=== PATIENT | female | born 1975 | race Caucasian/White ===

== ENCOUNTER → 2016-10-28 | Outpatient (CLI) | payer OTHER ==
[2016-10-28 15:35] LABS: ALT 36 U/L (9-52); AST 83 U/L (14-36); Alkaline Phosphatase 228 U/L (38-126); Anion Gap 8 mmol/L; Blood Urea Nitrogen 6 mg/dL (7-17); Calcium 8.6 mg/dL (8.4-10.2); Carbon Dioxide 26 mmol/L (22-30); Chloride 103 mmol/L (98-107); Glucose 108 mg/dL (74-99); Non-African American GFR(MDRD) >60 (>60 ml/min/1.73 sqM); Potassium 3.9 mmol/L (3.5-5.1); Sodium 137 mmol/L (137-145); Total Bilirubin 1.8 mg/dL (0.2-1.3); Total Protein 7.2 g/dL (6.3-8.2)
[2016-10-28 16:04] LABS: Hepatitis B Surface Ag Index 0.06
[2016-10-28 16:10] LABS: Hepatitis B Core IgM Index 0.01
[2016-10-28 16:21] LABS: Hepatitis C Virus IgG Index 0.02
[2016-10-28 16:27] LABS: Hepatitis C Virus IgG Ab Negative (Negative)
== END ==
LOC: LABWHC1 14:18
PROVIDERS: ATTEND Family Medicine
DX: R74.8 Abnormal levels of other serum enzymes (principal); R10.9 Unspecified abdominal pain
CPT/HCPCS: 36415; 80053; 80074; 82140

== ENCOUNTER → 2017-05-19 | Outpatient (CLI) | payer OTHER ==
--- NOTE | 2017-05-19 09:41 | US ---
EXAMINATION TYPE: US liver DATE OF EXAM: 05/19/2017 COMPARISON: NONE CLINICAL HISTORY: 41-year-old female R94.5 Elevated Liver Function test. Patient reports a history of alcoholic cirrhosis. TECHNIQUE: Multiple sonographic images of the right upper quadrant are obtained. FINDINGS: Liver Length: 15.1 cm Gallbladder Wall: 0.4 cm CBD: 0.3 cm Right Kidney: 11.5 x 3.8 x 4.7 cm Pancreas: not well visualized Liver: There is a focal area of hyperechogenicity seen along the gallbladder fossa measuring 2.6 x 2. 2 cm. No other focal lesion seen. Gallbladder: No abnormal distention. Mild gallbladder wall thickening at 4 mm. Possible trace fluid interposed between the gallbladder and liver. Evidence for sonographic Kruse's sign: Yes CBD: wnl Right Kidney: No hydronephrosis or masses seen IMPRESSION: 1. As the patient reports a history of cirrhosis, recommend liver MRI to assess for a 2.6 cm area of focal fat along the gallbladder fossa versus a mass. 2. Mild gallbladder wall thickening. There may be trace fluid interposed between the gallbladder and liver. Also, sonographic Kruse sign is reported positive. No calculi are seen. If concern for early acute cholecystitis, follow-up HIDA scan.
== END ==
LOC: RADUSWWP 06:57
PROVIDERS: ATTEND Internal Medicine
DX: K82.8 Other specified diseases of gallbladder (principal)
CPT/HCPCS: 76705

== ENCOUNTER 2017-12-24 11:48 | Emergency (ER) | payer OTHER ==
[2017-12-24] MEDS ORDERED: KETOROLAC 60 MG/2 ML VIAL IM STA (12:34)
--- NOTE | 2017-12-24 12:36 | XR ---
EXAMINATION TYPE: XR ankle complete LT , 3 VIEWS DATE OF EXAM ORDERED: 12/24/2017 HISTORY: Pain. COMPARISON: None. FINDINGS: There is moderate soft tissue swelling adjacent to the lateral malleolus. There is an ossi fic fragment adjacent to the cuboid. An avulsion fracture cannot be excluded. No additional fractures are identified. IMPRESSION: I CANNOT EXCLUDE AN AVULSION FRACTURE ARISING FROM THE CUBOID.
--- NOTE | 2017-12-24 13:00 | ED ---
General Adult HPI - General Chief complaint: Extremity Injury, Lower Stated complaint: left ankle injury Time Seen by Provider: 12/24/17 12:11 Source: patient, RN notes reviewed Mode of arrival: wheelchair Limitations: no limitations - History of Present Illness Initial comments: Patient 42-year-old female presenting to the emergency room today with a chief complaint of injury to the left ankle that occurred approximately 2 hours ago. 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 Patient admits to pain locally. Denies any other injury or trauma. Denies any other complaints or symptoms. Patient denies any recent fever, chills, shortness of breath, chest pain, back pain, abdominal pain, nausea or vomiting, headaches or visual changes, or any other complaints. - Related Data Home Medications Medication Instructions Recorded Confirmed Gabapentin [Neurontin] 300 mg PO TID 02/02/14 11/15/14 busPIRone HCL [Buspar] 15 mg PO TID 02/02/14 11/15/14 Ergocalciferol [Vitamin D2] 50,000 unit PO Q7D 11/15/14 11/15/14 PHENobarbital 100 mg PO 11/15/14 11/15/14 Previous Rx's Medication Instructions Recorded Cephalexin [Keflex] 250 mg PO Q6HR 10 Days day 11/15/14 Allergies Allergy/AdvReac Type Severity Reaction Status Date / Time bee venom protein (honey bee) Allergy Swelling Verified 12/24/17 11:56 Review of Systems ROS Statement: Those systems with pertinent positive or pertinent negative responses have been documented in the HPI. ROS Other: All systems not noted in ROS Statement are negative. Past Medical History Past Medical History: Hypertension, Seizure Disorder Additional Past Medical History / Comment(s): seizured related to alcohol withdrawal, mitral valve prolapse History of Any Multi-Drug Resistant Organisms: None Reported Past Surgical History: Hysterectomy, Tubal Ligation Additional Past Surgical History / Comment(s): plate to right lower arm, wisdom teeth Past Psychological History: Bipolar Smoking Status: Current every day smoker Past Alcohol Use History: Occasional Past Drug Use History: Marijuana General Exam - General Exam Comments Initial Comments: General: The patient is awake and alert, in no distress, and does not appear acutely ill. Neck: The neck is supple, there is no tenderness or JVD. Musculoskeletal: Moderate swelling over the lateral left foot and ankle. Tender on palpation over the lateral malleolous and proximal 4/5 metatarsals. Shows good range of motion. Pedal pulse 2+. Neurological: A&O x 3. CN II-XII intact, There are no obvious motor or sensory deficits. Coordination appears grossly intact. Speech is normal. Skin: Skin is warm and dry and no rashes or lesions are noted. Psychiatric: Normal mood and affect. pect of left foot and ankle. Locally tender over the lateral malleolus and proximal Limitations: no limitations Course Vital Signs 12/24/17 11:54 Temperature 98.3 F Pulse Rate 94 Respiratory 16 Rate Blood Pressure 132/84 O2 Sat by Pulse 100 Oximetry Medical Decision Making - Medical Decision Making Patient's x-ray reviewed does show fracture of the lateral malleolus. Patient has been splinted in a short leg posterior OCL splint. Neurovascular rechecked and intact. Patient be given crutches and advised nonweightbearing. Advised follow-up with orthopedics over the next 2-5 days. Advised to return here to the emergency room if any symptoms increase worsen or for any other concerns. Disposition Clinical Impression: Ankle fracture Disposition: HOME SELF-CARE Condition: Good Instructions: Ankle Fracture (ED) Additional Instructions: Please follow-up with orthopedics in the next 2-5 days. Please leave splint in place until follow-up appointment. Please continue to ice elevate the affected area at least 4 times a day for 20 minutes at a time. Please return to emergency room for any other concerns. Is patient prescribed a controlled substance at d/c from ED?: No Referrals: Elvie Rowe MD [Primary Care Provider] - 1-2 days Rasheed Payne MD [STAFF PHYSICIAN] - 1-2 days Time of Disposition: 13:21
--- NOTE | 2017-12-24 13:05 | XR ---
EXAMINATION TYPE: XR foot complete LT , 3 VIEWS DATE OF EXAM ORDERED: 12/24/2017 HISTORY: Pain. COMPARISON: None. FINDINGS: There is a minimally displaced fracture adjacent to the lateral malleolus there is associa amauri soft tissue swelling over the dorsum of the foot. No other definite fracture is seen. The cuboid appears unremarkable. IMPRESSION: MINIMALLY DISPLACED FRACTURE OF THE LATERAL MALLEOLUS MUST HAVE BEEN MISTAKEN FOR THE CUBOID DUE TO P ROJECTIONAL ISSUES.
[2017-12-24 13:30] VITALS: BP 135/78; PULSE 85; RESP 18; TEMP 98.6
== END 2017-12-24 13:30 | disposition home or self-care (01) ==
LOC: EC 11:48
DX: S82.62XA Displaced fracture of lateral malleolus of left fibula, initial encounter for closed fracture (principal); G40.909 Epilepsy, unspecified, not intractable, without status epilepticus; F31.9 Bipolar disorder, unspecified; F17.200 Nicotine dependence, unspecified, uncomplicated; Z79.899 Other long term (current) drug therapy; Z91.030 Bee allergy status; W19.XXXA Unspecified fall, initial encounter; X50.1XXA Overexertion from prolonged static or awkward postures, initial encounter; Y93.89 Activity, other specified; Y92.009 Unspecified place in unspecified non-institutional (private) residence as the place of occurrence of the external cause
CPT/HCPCS: 73610; 73630; 99283; 29515; 96372; J1885

== ENCOUNTER 2018-07-06 18:34 | Emergency (ER) | payer OTHER ==
[2018-07-06] MEDS ORDERED: KETOROLAC 60 MG/2 ML VIAL IM STA (18:40)
[2018-07-06 18:45] VITALS: RESP 18
[2018-07-06] MEDS ORDERED: KETOROLAC 30 MG/ML 1 ML VIAL IVP STA (18:49)
--- NOTE | 2018-07-06 18:51 | ED ---
General Adult HPI - General Stated complaint: Right Shoulder Injury Time Seen by Provider: 07/06/18 18:35 Source: RN notes reviewed - History of Present Illness Initial comments: This is a 42-year-old female who presents to the emergency department she fell on a step and landed on the right side per patient complains of right humerus pain. Patient states is very difficult to move without causing significant tenderness. Patient denies any clavicle pain or actual pain at the shoulder joint. Patient denies double pain form pain or wrist pain. Patient denies hitting her head or neck. Patient denies any headache or neck pain. Patient denies any other injury at this time. - Related Data Home Medications Medication Instructions Recorded Confirmed Gabapentin [Neurontin] 300 mg PO TID 02/02/14 11/15/14 busPIRone HCL [Buspar] 15 mg PO TID 02/02/14 11/15/14 Ergocalciferol [Vitamin D2] 50,000 unit PO Q7D 11/15/14 11/15/14 PHENobarbital 100 mg PO 11/15/14 11/15/14 Previous Rx's Medication Instructions Recorded Cephalexin [Keflex] 250 mg PO Q6HR 10 Days day 11/15/14 Allergies Allergy/AdvReac Type Severity Reaction Status Date / Time bee venom protein (honey bee) Allergy Swelling Verified 07/06/18 18:40 Review of Systems ROS Statement: Those systems with pertinent positive or pertinent negative responses have been documented in the HPI. ROS Other: All systems not noted in ROS Statement are negative. Past Medical History Past Medical History: Hypertension, Seizure Disorder Additional Past Medical History / Comment(s): seizured related to alcohol withdrawal, mitral valve prolapse History of Any Multi-Drug Resistant Organisms: None Reported Past Surgical History: Hysterectomy, Tubal Ligation Additional Past Surgical History / Comment(s): plate to right lower arm, wisdom teeth Past Psychological History: Bipolar Smoking Status: Current every day smoker Past Alcohol Use History: Occasional Past Drug Use History: Marijuana General Exam - General Exam Comments Initial Comments: GENERAL: Patient is well-developed and well-nourished. Patient is nontoxic and well- hydrated and is in moderate distress. ENT: Neck has full range of motion without eliciting any pain. EYES: The sclera were anicteric and conjunctiva were pink and moist. Extraocular movements were intact and pupils were equal round and reactive to light. Eyelids were unremarkable. SKIN: Skin is clear with no lesions or rashes and otherwise unremarkable. NEUROLOGIC: Patient is alert and oriented x3. Cranial nerves II through XII are grossly intact. Sensation is intact. Normal speech, volume and content. Symmetrical smile. MUSCULOSKELETAL: Patient has mid right humeral pain. Patient has good radial pulses Refill and normal sensation. LYMPHATICS: No significant lymphadenopathy is noted PSYCHIATRIC: Normal psychiatric evaluation. Course Vital Signs 07/06/18 18:40 Temperature 97.6 F Pulse Rate 70 Respiratory 18 Rate Blood Pressure 117/60 O2 Sat by Pulse 99 Oximetry Medical Decision Making - Medical Decision Making EKG shows sinus tachycardia at 125 bpm AK interval is 146 QRS is 84 QT interval 310 QTC is 447. Patient's EKG shows no ST segment elevation or depression or T wave abnormalities are noted. X-ray of the humerus shows a spiral fracture of the proximal humerus. It is displaced. I spoke with the physician family service assistant for Dr. Desai and he stated that this was something that they could not repair here so he wanted me to send her to a trauma center. I spoke with Dr. Frank murdock at [facility] he accepted the patient he stated he would call the emergency department. Disposition Clinical Impression: Comminuted fracture of right humerus Disposition: OTHER INSTITUTION NOT DEFINED Referrals: Elvie Rowe MD [Primary Care Provider] - 1-2 days Time of Disposition: 19:22 - Out of Hospital Transfer - Req. Specs Out of Hospital Transfer - Requested Specifics: Other Emergency Center ( [facility])
--- NOTE | 2018-07-06 19:07 | XR ---
EXAMINATION TYPE: XR humerus RT DATE OF EXAM: 07/06/2018 COMPARISON: NONE HISTORY: Pain after falling TECHNIQUE: 2 view FINDINGS: There is a comminuted spiral fracture of the proximal shaft of the humerus. There is no dis location. Elbow joint is intact. IMPRESSION: Comminuted spiral fracture of the proximal humerus with some impaction and displacement u p to 1 cm.
[2018-07-06] MEDS ORDERED: HYDROmorphone 1 MG/ML 1 ML SYRINGE IVP STA ×2 (19:10→19:48)
[2018-07-06] MEDS ORDERED: ONDANSETRON 4 MG/2 ML VIAL IVP STA ×2 (19:10→19:48)
[2018-07-06 19:45] VITALS: BP 91/56; PULSE 68; TEMP 97.8
[2018-07-06] MEDS ORDERED: hydrALAZINE HCL 20 MG/ML 1 ML VIAL IVP STA (19:47)
== END 2018-07-06 20:05 | disposition other institution (70) ==
LOC: EC 18:34
DX: S42.291A Other displaced fracture of upper end of right humerus, initial encounter for closed fracture (principal); R00.0 Tachycardia, unspecified; G40.909 Epilepsy, unspecified, not intractable, without status epilepticus; F31.9 Bipolar disorder, unspecified; F17.200 Nicotine dependence, unspecified, uncomplicated; Z79.899 Other long term (current) drug therapy; Z91.030 Bee allergy status; W01.0XXA Fall on same level from slipping, tripping and stumbling without subsequent striking against object, initial encounter; Z53.8 Procedure and treatment not carried out for other reasons
CPT/HCPCS: 73060; 96374; 96375 ×2; 99285; J2405; J1885; J1170

== ENCOUNTER 2018-07-26 16:05 | Emergency (ER) | payer OTHER ==
--- NOTE | 2018-07-26 16:46 | ED ---
General Adult HPI - General Chief complaint: Extremity Injury, Upper Stated complaint: Post op complication Time Seen by Provider: 07/26/18 16:26 Source: patient, RN notes reviewed Mode of arrival: ambulatory Limitations: no limitations - History of Present Illness Initial comments: Patient is a 42-year-old female with history of DVT after her hysterectomy who presents the emergency department with complaint of right arm pain that has gotten worse since yesterday. She reports having surgery on that arm 3 weeks ago and having hardware placed. She reports she had a follow-up x-ray which showed a screw coming out. She also reports that the initial swelling from the surgery had gone down, but that it has increased now. She states that she is selling her house and that she has not been resting her right arm like she is supposed to. She reports calling her orthopedic surgeon and being told to go to the ER. Patient denies any recent fever, chills, shortness of breath, chest pain, back pain, abdominal pain, nausea or vomiting, headaches or visual changes , or any other complaints. - Related Data Home Medications Medication Instructions Recorded Confirmed Gabapentin [Neurontin] 300 mg PO TID 02/02/14 11/15/14 busPIRone HCL [Buspar] 15 mg PO TID 02/02/14 11/15/14 Ergocalciferol [Vitamin D2] 50,000 unit PO Q7D 11/15/14 11/15/14 PHENobarbital 100 mg PO 11/15/14 11/15/14 Previous Rx's Medication Instructions Recorded Cephalexin [Keflex] 250 mg PO Q6HR 10 Days day 11/15/14 Allergies Allergy/AdvReac Type Severity Reaction Status Date / Time bee venom protein (honey bee) Allergy Swelling Verified 07/26/18 16:19 Review of Systems ROS Statement: Those systems with pertinent positive or pertinent negative responses have been documented in the HPI. ROS Other: All systems not noted in ROS Statement are negative. Past Medical History Past Medical History: Hypertension, Seizure Disorder Additional Past Medical History / Comment(s): seizured related to alcohol withdrawal, mitral valve prolapse History of Any Multi-Drug Resistant Organisms: None Reported Past Surgical History: Hysterectomy, Tubal Ligation Additional Past Surgical History / Comment(s): plate to right lower arm, wisdom teeth Past Psychological History: No Psychological Hx Reported, Bipolar Smoking Status: Current every day smoker Past Alcohol Use History: Occasional Past Drug Use History: None Reported General Exam Limitations: no limitations General appearance: alert, in no apparent distress Head exam: Present: atraumatic, normocephalic Eye exam: Present: normal appearance Respiratory exam: Present: normal lung sounds bilaterally. Absent: wheezes, rales, rhonchi Cardiovascular Exam: Present: regular rate, normal rhythm Extremities exam: Present: normal capillary refill, other (Radial pulses palpable and strong. No signs of infection over the surgical site.) Neurological exam: Present: alert, oriented X3 Skin exam: Present: warm, dry Course Vital Signs 07/26/18 07/26/18 07/26/18 16:19 18:52 20:21 Temperature 97.9 F 98.0 F Pulse Rate 92 90 86 Respiratory 18 16 18 Rate Blood Pressure 120/77 118/75 144/71 O2 Sat by Pulse 99 100 100 Oximetry Medical Decision Making - Medical Decision Making Morphine 2 mg IM ordered here. Patient came to the ER on 07/06/2018; x-ray reviewed. X-ray of the right humerus reveals fragments in good position but the plate may have some movement. Right arm ultrasound venous doppler duplex is negative for DVT. Patient complains of pain again; given a second dose of morphine. Patient will be picked up from the hospital. Patient has been instructed not to drive today. Case discussed in detail with attending physician Dr. Houston. Disposition Clinical Impression: Arm pain Disposition: HOME SELF-CARE Condition: Good Instructions (If sedation given, give patient instructions): Arm Pain (ED) Additional Instructions: Follow-up with your PCP in 1 to 2 days. Please follow-up with your orthopedic surgeon in 1-2 days. Return to the emergency department if your symptoms worsen or other concerns. Is patient prescribed a controlled substance at d/c from ED?: No Referrals: Elvie Rowe MD [Primary Care Provider] - 1-2 days
[2018-07-26] MEDS ORDERED: MORPHINE SULFATE 4 MG/ML SYRINGE IM STA ×2 (16:48→19:47)
--- NOTE | 2018-07-26 17:14 | XR ---
EXAMINATION TYPE: XR humerus RT DATE OF EXAM: 07/26/2018 COMPARISON: 07/06/2018 HISTORY: Postop. Surgery 3 weeks ago. TECHNIQUE: 2 views FINDINGS: There is a plate with multiple screws fixing the spiral fracture of the proximal humerus. F ragments are in anatomic position. I do not have a initial postoperative exam to compare. Some of the screws are not engaged with the plate and pulled through the holes. There is also screw that is back ed out 4 mm. IMPRESSION: Fragments are in good position but the plate may have some movement.
--- NOTE | 2018-07-26 19:05 | US ---
EXAMINATION TYPE: US venous doppler duplex UE RT DATE OF EXAM: 07/26/2018 COMPARISON: NONE CLINICAL HISTORY: Pain. Edema. SIDE PERFORMED: Right Right Arm: Negative for DVT No evidence of DVT right arm. IMPRESSION: Normal right arm duplex venous sonogram.
[2018-07-26 20:22] VITALS: BP 144/71; PULSE 86; RESP 18; TEMP 98
== END 2018-07-26 20:22 | disposition home or self-care (01) ==
LOC: EC 16:05
DX: M79.601 Pain in right arm (principal); M79.89 Other specified soft tissue disorders; G89.29 Other chronic pain; I10 Essential (primary) hypertension; G40.909 Epilepsy, unspecified, not intractable, without status epilepticus; F31.9 Bipolar disorder, unspecified; F17.200 Nicotine dependence, unspecified, uncomplicated; Z79.899 Other long term (current) drug therapy; Z91.030 Bee allergy status
CPT/HCPCS: 73060; 93971; 99284; 96372 ×2; J2270

== ENCOUNTER 2019-03-09 16:14 | Observation (INO) | payer OTHER ==
[2019-03-09] MEDS ORDERED: ONDANSETRON 4 MG/2 ML VIAL IVP STA (17:01)
[2019-03-09] MEDS ORDERED: MORPHINE SULFATE 4 MG/ML SYRINGE IVP STA (17:01)
--- NOTE | 2019-03-09 17:09 | ED ---
Abdominal Pain HPI - General Chief Complaint: Abdominal Pain Stated Complaint: Cirrhosis of the liver Time Seen by Provider: 03/09/19 16:41 Source: patient Mode of arrival: ambulatory Limitations: no limitations - History of Present Illness Initial Comments: Patient is a 43-year-old female presenting to emergency Department with complaints of right upper quadrant pain has been increasing over the past 2 weeks. Patient states she has a history of alcoholic cirrhosis. Patient states she has not followed up with her PCP in many years. Patient states she is in process of finding a new PCP. Patient states she does not drink as much as she used to but still admits to 2 large bottles of beer a day. Patient states she has not drank alcohol in approximately 5 days. Patient admits to nausea and diarrhea. Patient states her increasing abdominal swelling is interfering with her ADLs. Denies fever, chills, vomiting, chest pain, shortness of breath. Patient has no other complaints at this time. Upon arrival to ER, vital signs are stable. - Related Data Home Medications Medication Instructions Recorded Confirmed Furosemide [Lasix] 20 mg PO DAILY 03/09/19 03/09/19 Magnesium 200 mg PO DAILY 03/09/19 03/09/19 Metoprolol Tartrate [Lopressor] 25 mg PO DAILY 03/09/19 03/09/19 Allergies Allergy/AdvReac Type Severity Reaction Status Date / Time bee venom protein (honey bee) Allergy Swelling Verified 03/09/19 17:49 Review of Systems ROS Statement: Those systems with pertinent positive or pertinent negative responses have been documented in the HPI. ROS Other: All systems not noted in ROS Statement are negative. Past Medical History Past Medical History: Hypertension, Seizure Disorder Additional Past Medical History / Comment(s): seizured related to alcohol withdrawal, mitral valve prolapse, cirrhosis of the liver History of Any Multi-Drug Resistant Organisms: None Reported Past Surgical History: Hysterectomy, Tubal Ligation Additional Past Surgical History / Comment(s): plate to right lower arm, wisdom teeth Past Psychological History: Bipolar Smoking Status: Current every day smoker Past Alcohol Use History: Occasional Past Drug Use History: None Reported General Exam - General Exam Comments Initial Comments: GENERAL: Well-appearing, well-nourished and in no acute distress. HEAD: Atraumatic, normocephalic. EYES: Pupils equal round and reactive to light, extraocular movements intact, sclera anicteric, conjunctiva are normal. ENT: TMs normal, nares patent, oropharynx clear without exudates. Moist mucous membranes. NECK: Normal range of motion, supple without lymphadenopathy or JVD. LUNGS: Breath sounds clear to auscultation bilaterally and equal. No wheezes rales or rhonchi. HEART: Regular rate and rhythm without murmurs, rubs or gallops. ABDOMEN: Tender to palpation in the right upper quadrant. Positive Kruse sign. Abdominal distention present. Soft, normoactive bowel sounds. No guarding, no rebound. No masses appreciated. : Deferred EXTREMITIES: Normal range of motion, no pitting or edema. No clubbing or cyanosis. NEUROLOGICAL: Cranial nerves II through XII grossly intact. Normal speech, normal gait. PSYCH: Normal mood, normal affect. SKIN: Warm, Dry, normal turgor, no rashes or lesions noted. Limitations: no limitations Course Vital Signs 03/09/19 03/09/19 16:31 19:48 Temperature 98.3 F Pulse Rate 83 68 Respiratory 18 18 Rate Blood Pressure 110/67 107/41 O2 Sat by Pulse 100 99 Oximetry Medical Decision Making - Medical Decision Making Patient is a 43-year-old female presenting with increasing abdominal distention and right upper quadrant pain secondary to alcoholic cirrhosis. Patient states her symptoms have been increasing over the past 2 weeks. Patient has not seen her PCP and years for this. Patient does admit to still drinking although not as much. Patient also admits to some intermittent nausea, diarrhea. On exam patient has abdominal distention as well as right upper quadrant tenderness. CBC shows low platelet count of 55. Coags are slightly elevated. Bilirubin is 9.1. AST is 83, alk phos is 255. UA shows urine bilirubin at 3+. Liver ultrasound reveals a somewhat hypererechoic consistent with fatty infiltration. Mild ascites. No dilated ducts. No gallstones. There is a stable 2.5 cm hyperactive area adjacent to the gallbladder compared to old exam. Could be a hemangioma. She was given pain medications and fluids. Patient will be admitted for further evaluation. Patient is a in agreement with this plan of care. Case discussed with Dr. Redmond. - Lab Data Result diagrams: 03/09/19 17:47 03/09/19 17:47 Lab Results 03/09/19 03/09/19 03/09/19 Range/Units 17:47 17:47 17:47 WBC 4.7 (3.8-10.6) k/uL RBC 3.15 L (3.80-5.40) m/uL Hgb 11.1 L (11.4-16.0) gm/dL Hct 34.3 (34.0-46.0) % MCV 109.0 H (80.0-100.0) fL MCH 35.2 H (25.0-35.0) pg MCHC 32.3 (31.0-37.0) g/dL RDW 19.6 H (11.5-15.5) % Plt Count 55 L (150-450) k/uL Neutrophils % 55 % Lymphocytes % 24 % Monocytes % 15 % Eosinophils % 2 % Basophils % 1 % Neutrophils # 2.6 (1.3-7.7) k/uL Lymphocytes # 1.1 (1.0-4.8) k/uL Monocytes # 0.7 (0-1.0) k/uL Eosinophils # 0.1 (0-0.7) k/uL Basophils # 0.1 (0-0.2) k/uL Manual Slide Review Performed Poikilocytosis (manual Present Anisocytosis Slight Macrocytosis Marked A Target Cells Present PT 17.6 H (9.0-12.0) sec INR 1.8 H (<1.2) APTT 30.3 H (22.0-30.0) sec Sodium 137 (137-145) mmol/L Potassium 4.0 (3.5-5.1) mmol/L Chloride 107 (98-107) mmol/L Carbon Dioxide 22 (22-30) mmol/L Anion Gap 8 mmol/L BUN 12 (7-17) mg/dL Creatinine 0.48 L (0.52-1.04) mg/dL Est GFR (CKD-EPI)AfAm >90 (>60 ml/min/1.73 sqM) Est GFR (CKD-EPI)NonAf >90 (>60 ml/min/1.73 sqM) Glucose 110 H (74-99) mg/dL Calcium 7.7 L (8.4-10.2) mg/dL Total Bilirubin 9.1 H (0.2-1.3) mg/dL AST 83 H (14-36) U/L ALT 13 (9-52) U/L Alkaline Phosphatase 255 H (38-126) U/L Total Protein 7.2 (6.3-8.2) g/dL Albumin 2.8 L (3.5-5.0) g/dL Amylase 50 (30-110) U/L Lipase 264 (23-300) U/L Urine Color Urine Appearance (Clear) Urine pH (5.0-8.0) Ur Specific [place] (1.001-1.035) Urine Protein (Negative) Urine Glucose (UA) (Negative) Urine Ketones (Negative) Urine Blood (Negative) Urine Nitrite (Negative) Urine Bilirubin (Negative) Urine Urobilinogen (<2.0) mg/dL Ur Leukocyte Esterase (Negative) Urine RBC (0-5) /hpf Urine WBC (0-5) /hpf Ur Squamous Epith Cells (0-4) /hpf Urine Mucus (None) /hpf Serum Alcohol <10 mg/dL 03/09/19 Range/Units 17:48 WBC (3.8-10.6) k/uL RBC (3.80-5.40) m/uL Hgb (11.4-16.0) gm/dL Hct (34.0-46.0) % MCV (80.0-100.0) fL MCH (25.0-35.0) pg MCHC (31.0-37.0) g/dL RDW (11.5-15.5) % Plt Count (150-450) k/uL Neutrophils % % Lymphocytes % % Monocytes % % Eosinophils % % Basophils % % Neutrophils # (1.3-7.7) k/uL Lymphocytes # (1.0-4.8) k/uL Monocytes # (0-1.0) k/uL Eosinophils # (0-0.7) k/uL Basophils # (0-0.2) k/uL Manual Slide Review Poikilocytosis (manual Anisocytosis Macrocytosis Target Cells PT (9.0-12.0) sec INR (<1.2) APTT (22.0-30.0) sec Sodium (137-145) mmol/L Potassium (3.5-5.1) mmol/L Chloride (98-107) mmol/L Carbon Dioxide (22-30) mmol/L Anion Gap mmol/L BUN (7-17) mg/dL Creatinine (0.52-1.04) mg/dL Est GFR (CKD-EPI)AfAm (>60 ml/min/1.73 sqM) Est GFR (CKD-EPI)NonAf (>60 ml/min/1.73 sqM) Glucose (74-99) mg/dL Calcium (8.4-10.2) mg/dL Total Bilirubin (0.2-1.3) mg/dL AST (14-36) U/L ALT (9-52) U/L Alkaline Phosphatase (38-126) U/L Total Protein (6.3-8.2) g/dL Albumin (3.5-5.0) g/dL Amylase (30-110) U/L Lipase (23-300) U/L Urine Color Dark Brown Urine Appearance Cloudy H (Clear) Urine pH 6.0 (5.0-8.0) Ur Specific [place] 1.050 H (1.001-1.035) Urine Protein 1+ H (Negative) Urine Glucose (UA) Negative (Negative) Urine Ketones Negative (Negative) Urine Blood Negative (Negative) Urine Nitrite Negative (Negative) Urine Bilirubin 3+ H (Negative) Urine Urobilinogen 4.0 (<2.0) mg/dL Ur Leukocyte Esterase Negative (Negative) Urine RBC 1 (0-5) /hpf Urine WBC 2 (0-5) /hpf Ur Squamous Epith Cells 18 H (0-4) /hpf Urine Mucus Many H (None) /hpf Serum Alcohol mg/dL Disposition Clinical Impression: Abdominal pain, Ascites due to alcoholic cirrhosis Disposition: ADMITTED IP TO THIS HOSP Condition: Stable Is patient prescribed a controlled substance at d/c from ED?: No Referrals: None,Stated [Primary Care Provider] - 1-2 days Decision Date: 03/09/19 Decision Time: 20:22
[2019-03-09 17:57] LABS: Appearance,Urine Cloudy (Clear); Bilirubin,Urine 3+ (Negative); Blood,Urine Negative (Negative); Color,Urine Dark Brown; Glucose,Urine (UA) Negative (Negative); Ketones,Urine Negative (Negative); Leukocyte Esterase,Urine Negative (Negative); Mucus,Urine Many /hpf; Nitrite,Urine Negative (Negative); Protein,Urine 1+ (Negative); RBC,Urine 1 /hpf (0-5); Squamous Epithelial Cell,Urine 18 /hpf (0-4)
[2019-03-09 18:04] LABS: ALT 13 U/L (9-52); AST 83 U/L (14-36); African American GFR (CKD) >90 (>60 ml/min/1.73 sqM); Albumin 2.8 g/dL (3.5-5.0); Alcohol <10 mg/dL; Alkaline Phosphatase 255 U/L (38-126); Amylase 50 U/L (30-110); Anion Gap 8 mmol/L; Blood Urea Nitrogen 12 mg/dL (7-17); Calcium 7.7 mg/dL (8.4-10.2); Carbon Dioxide 22 mmol/L (22-30); Chloride 107 mmol/L (98-107); Glucose 110 mg/dL (74-99); INR 1.8 (<1.2); Partial Thromboplastin Time 30.3 sec (22.0-30.0); Prothrombin Time 17.6 sec (9.0-12.0); Sodium 137 mmol/L (137-145); Total Bilirubin 9.1 mg/dL (0.2-1.3); Total Protein 7.2 g/dL (6.3-8.2)
--- NOTE | 2019-03-09 18:23 | US ---
EXAMINATION TYPE: US liver DATE OF EXAM: 03/09/2019 COMPARISON: US 2017 liver ultrasound 05/19/2017 CLINICAL HISTORY: pain, hx of cirrhosis. Abdomen pain, N/V, bloating, jaundice, patient not NPO EXAM MEASUREMENTS: Liver Length: 17.1 cm Gallbladder Wall: 0.3 cm CBD: 0.4 cm Right Kidney: 10.5 x 5.2 x 5.1 cm Difficult and limited study due to patient body habitus Pancreas: obscured by overlying midline bowel gas Liver: measures in upper limits, increased echogenicity, heterogeneous with hyperechoic area seen ad jacent to gallbladder measuring 1.6 x 2.0 x 1.6cm Gallbladder: wall borderline thickened at 0.3cm Evidence for sonographic Kruse's sign: yes CBD: visualized portions wnl, limited by overlying midline bowel gas Right Kidney: wnl free fluid in RUQ IMPRESSION: Liver is somewhat hyperechoic consistent with fatty infiltration. Mild ascites. No dilate d ducts. No discrete liver mass. Right kidney shows no hydronephrosis. No gallstones. There is a stable 2.5 cm hyperechoic area adjacent to the gallbladder compared to old exam and could be a hemangioma.
[2019-03-09 18:35] LABS: Anisocytosis Slight; Basophils # (A) 0.1 k/uL (0-0.2); Basophils % (A) 1 %; Eosinophils # (A) 0.1 k/uL (0-0.7); Eosinophils % (A) 2 %; HCT 34.3 % (34.0-46.0); HGB 11.1 gm/dL (11.4-16.0); Lymphocytes # (A) 1.1 k/uL (1.0-4.8); Lymphocytes % (A) 24 %; MCH 35.2 pg (25.0-35.0); MCHC 32.3 g/dL (31.0-37.0); Macrocytosis Marked; Mean Platelet Volume 8.6; Monocytes # (A) 0.7 k/uL (0-1.0); Monocytes % (A) 15 %; Neutrophils # (A) 2.6 k/uL (1.3-7.7); Neutrophils % (A) 55 %; RBC 3.15 m/uL (3.80-5.40); RDW 19.6 % (11.5-15.5); WBC 4.7 k/uL (3.8-10.6)
[2019-03-09 18:48] LABS: Platelet Count 55 k/uL (150-450); Poikilocytosis (M) Present; Target Cells Present
[2019-03-09] MEDS ORDERED: MORPHINE SULFATE 2 MG/ML SYRINGE IVP ONE (19:26)
[2019-03-09] MEDS ORDERED: SODIUM CHLORIDE 0.9% 1,000 ML IV ONE (20:09)
[2019-03-09 20:40] LABS: Magnesium 2.1 mg/dL (1.6-2.3); Phosphorus 4.1 mg/dL (2.5-4.5)
[2019-03-09] MEDS: HYDROmorphone 0.5 MG/0.5 ML SYRINGE IVP PRN (22:53)
[2019-03-10] MEDS: HYDROmorphone 0.5 MG/0.5 ML SYRINGE IVP PRN ×6 (03:55→23:39)
[2019-03-10 04:18] VITALS: BMI 27.6
[2019-03-10] MEDS: MAGNESIUM OXIDE 400 MG TAB PO SCH (08:04)
[2019-03-10] MEDS: FUROSEMIDE 20 MG TAB PO SCH (08:04)
[2019-03-10] MEDS: METOPROLOL TARTRATE 25 MG TAB PO SCH (08:05)
--- NOTE | 2019-03-10 19:16 | P.HPIM ---
History of Present Illness H&P Date: 03/10/19 Chief Complaint: Abdominal pain Ms. Yip is a 43-year-old female with a past medical history of hypertension, mitral valve prolapse, alcohol liver cirrhosis coming into the hospital with a chief complaint of increasing abdominal girth and abdominal pain. Patient reports of alcohol abuse, she has been drinking vodka for many years and was diagnosed with alcohol liver cirrhosis. Eventually she admits to drinking beer on a daily basis. She states that her abdominal swelling is increasing and she is not able to perform her activities of daily living. Patient denies having any fevers chills or rigors. No abdominal pain nausea vomiting, diarrhea or constipation. She denies having any blood in the stool. No hematemesis. Patient has bilateral lower extremity swelling that has been stable. Patient denies having any chest pain. But she reports mild difficulty in breathing has her abdomen is full. No cough. No sick contacts. In the ER patient had an abdominal ultrasound showing hyperechoic fatty infiltration of the liver. Her labs were showing hemoglobin at 11 with macrocytosis. But his elevation of PT/INR. Mild elevation in her AST, ALT and ALP. She has been admitted for paracentesis. Review of Systems REVIEW OF SYSTEMS: PSYCH: No history of anxiety or depression NEURO:No c/o weakness of the extremties, No facial droop, No speech abnormalities. VASCULAR: Peripheral nervous system within the normal limits no edema HEMATOLOGIC: No history of easy bleeding and bruising . No recent infections . RESPIRATORY: No cough, No SOB, No chest discomfort. IMMUNE: No infections INTEGUMENT: no rashes OPHTHALMOLOGIC: No blurry vision and no eye discharge : No dysuria or hematuria FOOD AND DRUG RESEARCH SCIENTIST: No bleeding PV CARDIAC: No chest pain , shortness of breath , paroxysmal nocturnal dyspnea MUSCULOSKELETAL : No Aches or pains in the joints or muscles. GI: As per HPI All 13 review of systems are negative except for the ones mentioned above Past Medical History Past Medical History: Eye Disorder, Hypertension, Seizure Disorder Additional Past Medical History / Comment(s): seizured related to alcohol withdrawal, mitral valve prolapse, cirrhosis of the liver, retinal damage r/t head trauma History of Any Multi-Drug Resistant Organisms: None Reported Past Surgical History: Hysterectomy, Tubal Ligation Additional Past Surgical History / Comment(s): plate to right lower arm, wisdom teeth, samantha in right upper arm Past Anesthesia/Blood Transfusion Reactions: No Reported Reaction Past Psychological History: Bipolar Smoking Status: Current every day smoker Past Alcohol Use History: Occasional Past Drug Use History: None Reported - Past Family History Mother Family Medical History: Unable to Obtain Father Family Medical History: Unable to Obtain Medications and Allergies Home Medications Medication Instructions Recorded Confirmed Type Furosemide [Lasix] 20 mg PO DAILY 03/09/19 03/09/19 History Magnesium 200 mg PO DAILY 03/09/19 03/09/19 History Metoprolol Tartrate [Lopressor] 25 mg PO DAILY 03/09/19 03/09/19 History Allergies Allergy/AdvReac Type Severity Reaction Status Date / Time bee venom protein (honey bee) Allergy Swelling Verified 03/09/19 17:49 Physical Exam Vitals: Vital Signs Temp Pulse Pulse Resp BP BP Pulse Ox 03/10/19 16:00 75 03/10/19 15:00 97.8 F 75 16 133/70 99 03/10/19 07:00 98.2 F 80 18 127/78 100 03/10/19 02:40 98.2 F 83 16 133/75 97 03/10/19 00:49 98.3 F 78 14 123/73 99 03/09/19 19:48 68 18 107/41 99 Intake and Output 03/10/19 03/10/19 03/10/19 06:59 14:59 22:59 Intake Total 1060 Balance 1060 Intake: Intake, IV Titration 160 Amount Sodium Chloride 0.9% 1, 160 000 ml @ 20 mls/hr IV . Q24H ONE Rx#:[id number] Oral 900 Other: # Voids 1 1 Weight 68.492 kg GEN. APPEARANCE: alert, in no apparent distress HEAD EXAM: atraumatic, normocephalic, normal inspection EYE EXAM: Mild pallor. Positive for icterus. ENT EXAM: normal exam, mucous membranes moist NECK EXAM: normal inspection. Absent: tenderness, meningismus, full ROM, lymphadenopathy RESPIRATORY EXAM: Bilateral breath sounds are positive. No wheezes or crackles. CARDIOVASCULAR EXAM: regular rate, normal rhythm, normal heart sounds. Absent: systolic murmur, diastolic murmur, rubs, gallop, clicks GI/ABDOMINAL EXAM: Abdomen is distended. Nontender. Fluid thrill positive. EXTREMITIES EXAM: Bilateral pitting pedal edema. NEUROLOGICAL EXAM: alert, oriented X3, no focal neurological deficits PSYCHIATRIC EXAM: normal affect, normal mood SKIN EXAM: warm, dry, intact, normal color. Absent: rash Results CBC & Chem 7: 03/09/19 17:47 03/09/19 17:47 Labs: Abnormal Lab Results - Last 24 Hours (Table) 03/09/19 Range/Units 17:47 RBC 3.15 L (3.80-5.40) m/uL Hgb 11.1 L (11.4-16.0) gm/dL MCV 109.0 H (80.0-100.0) fL MCH 35.2 H (25.0-35.0) pg RDW 19.6 H (11.5-15.5) % Plt Count 55 L (150-450) k/uL Macrocytosis Marked A Thrombosis Risk Factor Assmnt - Choose All That Apply Each Factor Represents 1 point: Age 41-60 years, Obesity (BMI >25) Other Risk Factors: No Other congenital or acquired thrombophilia - If yes, enter type in comment: No Thrombosis Risk Factor Assessment Total Risk Factor Score: 2 Thrombosis Risk Factor Assessment Level: Low Risk Assessment and Plan Assessment: ASSESSMENT Ascites secondary to liver cirrhosis Alcohol liver cirrhosis Transaminitis Elevated PT/INR History of mitral valve prolapse Hypertension History of seizure disorder PLAN: Patient has history of recurrent ascites. She is admitted for parace ntesis. Interventional radiology and GI have been consulted. Continue with Lasix for symptomatic relief. Continue with the rest of her medication regimen. SCDs for DVT prophylaxis in view of her chronic liver disease and elevated INR. Further recommendations to follow depending on the progress of the patient.
--- NOTE | 2019-03-10 21:18 | P.CONS ---
History of Present Illness - Reason for Consult Consult date: 03/10/19 cirrhosis Requesting physician: Irina Ren - Chief Complaint Abdominal distension - History of Present Illness 43-year-old female with a known medical history significant for hypertension, mitral valve prolapse and alcoholic cirrhosis who presented to the hospital with complaints of increasing abdominal distention. She reports abdominal distention which had been worsening over the past few weeks prior to presentation. She reports associated rectal upper quadrant pain secondary to the distention as well as nausea. Currently she is on home dose of furosemide 20 mg daily. She does report previously requiring 1 paracentesis approximately 4 years ago at which time 2 L was removed. She denies any signs or symptoms of GI bleeding but does report 20 years ago having an EGD at which time she was told she had ulcers. She denies any treatment for encephalopathy but does report difficulty sleeping as well as difficulty with her memory. Previously the patient reports a long-standing history of alcohol use with daily liquor but currently is drinking 2 large bottles of beer daily. She also reports loose stool prior to presentation which is currently improved with no blood or black tarry stools. Laboratory evaluation on presentation was significant for a WBC 4.7, hemoglobin 11.1, platelet count 55,000, MCV 109, total bilirubin 9.1, alkaline phosphatase 255, AST 83 and ALT 13. Ultrasound significant for hyperechoic liver with no dilated ducts noted. Review of Systems REVIEW OF SYSTEMS: CONSTITUTIONAL: Denies any fevers, chills, weight change or fatigue. CARDIOVASCULAR: Denies any chest pain, palpitations high or low blood pressures RESPIRATORY: Denies any shortness of breath, hemoptysis or cough. GENITOURINARY: No dysuria or hematuria. MUSCULOSKELETAL: No weakness reported. SKIN: Denies any new rashes or lesions, jaundice or pallor. PSYCHIATRIC: Denies any depression or anxiety. NEUROLOGY: Denies headache, denies any new focal deficits. EARS/NOSE/THROAT: No recent hearing change, congestion, nasal discharge or sore throat. EYES: No pain in eyes, discharge or change in vision. GASTROINTESTINAL: As per HPI. Past Medical History Past Medical History: Eye Disorder, Hypertension, Seizure Disorder Additional Past Medical History / Comment(s): seizured related to alcohol withdrawal, mitral valve prolapse, cirrhosis of the liver, retinal damage r/t head trauma History of Any Multi-Drug Resistant Organisms: None Reported Past Surgical History: Hysterectomy, Tubal Ligation Additional Past Surgical History / Comment(s): plate to right lower arm, wisdom teeth, samantha in right upper arm Past Anesthesia/Blood Transfusion Reactions: No Reported Reaction Past Psychological History: Bipolar Smoking Status: Current every day smoker Past Alcohol Use History: Occasional Past Drug Use History: None Reported - Past Family History Mother Family Medical History: Unable to Obtain Father Family Medical History: Unable to Obtain Medications and Allergies Home Medications Medication Instructions Recorded Confirmed Type Furosemide [Lasix] 20 mg PO DAILY 03/09/19 03/09/19 History Magnesium 200 mg PO DAILY 03/09/19 03/09/19 History Metoprolol Tartrate [Lopressor] 25 mg PO DAILY 03/09/19 03/09/19 History Allergies Allergy/AdvReac Type Severity Reaction Status Date / Time bee venom protein (honey bee) Allergy Swelling Verified 03/09/19 17:49 Physical Exam Vitals: Vital Signs Temp Pulse Resp BP Pulse Ox 03/10/19 16:00 75 03/10/19 15:00 97.8 F 75 16 133/70 99 03/10/19 07:00 98.2 F 80 18 127/78 100 03/10/19 02:40 98.2 F 83 16 133/75 97 03/10/19 00:49 98.3 F 78 14 123/73 99 Intake and Output 03/10/19 03/10/19 03/10/19 06:59 14:59 22:59 Intake Total 1060 236 Balance 1060 236 Intake: Intake, IV Titration 160 Amount Sodium Chloride 0.9% 1, 160 000 ml @ 20 mls/hr IV . Q24H ONE Rx#:[id number] Oral 900 236 Other: # Voids 1 1 Weight 68.492 kg On physical examination, patient appears comfortable in no apparent distress. HEAD: Normocephalic, atraumatic. EYES: No scleral icterus. No conjunctival injection. MOUTH: No lesions, tongue midline. NECK: Trachea midline, no gross abnormalities. CHEST: Clear to auscultation with no wheezing or rhonchi appreciated. HEART: Regular rate and rhythm. ABDOMEN: Soft, obese and distended with positive fluid wave. Bowel sounds are positive. No organomegaly. No guarding or rigidity. EXTREMITIES: No pedal edema. SKIN: No rashes, no jaundice. NEUROLOGIC: Alert and oriented x3, no asterixis. No focal deficits. Results CBC & Chem 7: 03/09/19 17:47 03/09/19 17:47 US - abdomen: report reviewed (Ultrasound significant for hyperechoic liver with no dilated ducts noted.) Assessment and Plan (1) Ascites due to alcoholic cirrhosis Narrative/Plan: 43-year-old female with a known history of decompensated alcoholic cirrhosis presenting with increasing ascites and abdominal distention. Currently only on home dose of Lasix 20 mg daily, she reports requiring paracentesis one time in the past. Current Visit: Yes Status: Acute Code(s): K70.31 - ALCOHOLIC CIRRHOSIS OF LIVER WITH ASCITES SNOMED Code(s): 8843103371183965 (2) Abdominal pain Current Visit: Yes Status: Acute Code(s): R10.9 - UNSPECIFIED ABDOMINAL PAIN SNOMED Code(s): 18163194 Plan: Supportive care Okay for sodium restricted diet Continue Lasix 20 mg daily Aldactone 50 mg daily added Ultrasound-guided paracentesis Alcohol abstinence Ammonia level pending Thank you for allowing us to participate in the care of the patient we will continue to follow
[2019-03-11] MEDS: HYDROmorphone 0.5 MG/0.5 ML SYRINGE IVP PRN ×5 (03:35→20:26)
[2019-03-11 06:55] LABS: Anisocytosis Slight; Basophils % (A) 1 %; Eosinophils # (A) 0.1 k/uL (0-0.7); Eosinophils % (A) 2 %; HGB 10.6 gm/dL (11.4-16.0); Lymphocytes # (A) 1.2 k/uL (1.0-4.8); Lymphocytes % (A) 27 %; MCH 35.1 pg (25.0-35.0); MCHC 32.1 g/dL (31.0-37.0); MCV 109.4 fL (80.0-100.0); Macrocytosis Marked; Mean Platelet Volume 8.6; Monocytes # (A) 0.7 k/uL (0-1.0); Monocytes % (A) 15 %; Neutrophils # (A) 2.3 k/uL (1.3-7.7); Neutrophils % (A) 51 %; RBC 3.02 m/uL (3.80-5.40); RDW 19.2 % (11.5-15.5); WBC 4.4 k/uL (3.8-10.6)
[2019-03-11 07:09] LABS: Platelet Count 50 k/uL (150-450)
[2019-03-11 07:17] LABS: ALT 25 U/L (9-52); AST 91 U/L (14-36); African American GFR (CKD) >90 (>60 ml/min/1.73 sqM); Albumin 2.7 g/dL (3.5-5.0); Alkaline Phosphatase 231 U/L (38-126); Anion Gap 4 mmol/L; Blood Urea Nitrogen 10 mg/dL (7-17); Carbon Dioxide 21 mmol/L (22-30); Chloride 105 mmol/L (98-107); Glucose 84 mg/dL (74-99); Potassium 4.1 mmol/L (3.5-5.1); Sodium 130 mmol/L (137-145); Total Bilirubin 9.4 mg/dL (0.2-1.3); Total Protein 7.1 g/dL (6.3-8.2)
[2019-03-11] MEDS: METOPROLOL TARTRATE 25 MG TAB PO SCH (08:02)
[2019-03-11] MEDS: MAGNESIUM OXIDE 400 MG TAB PO SCH (08:03)
[2019-03-11] MEDS: SPIRONOLACTONE 25 MG TAB PO SCH (08:03)
[2019-03-11] MEDS: FUROSEMIDE 20 MG TAB PO SCH (08:03)
[2019-03-11 10:33] LABS: INR 1.7 (<1.2); Prothrombin Time 17.3 sec (9.0-12.0)
--- NOTE | 2019-03-11 19:25 | P.PN ---
Subjective Progress Note Date: 03/11/19 Principal diagnosis: As site is secondary to alcohol liver disease Ms. Yip is a 43-year-old female with a past medical history of hypertension, mitral valve prolapse, alcohol liver cirrhosis coming into the hospital with a chief complaint of increasing abdominal girth and abdominal pain. Patient reports of alcohol abuse, she has been drinking vodka for many years and was diagnosed with alcohol liver cirrhosis. Eventually she admits to drinking beer on a daily basis. She states that her abdominal swelling is increasing and she is not able to perform her activities of daily living. Patient denies having any fevers chills or rigors. No abdominal pain nausea vo miting, diarrhea or constipation. She denies having any blood in the stool. No hematemesis. Patient has bilateral lower extremity swelling that has been stable. Patient denies having any chest pain. But she reports mild difficulty in breathing has her abdomen is full. No cough. No sick contacts. In the ER patient had an abdominal ultrasound showing hyperechoic fatty infiltration of the liver. Her labs were showing hemoglobin at 11 with macrocytosis. But his elevation of PT/INR. Mild elevation in her AST, ALT and ALP. She has been admitted for paracentesis On 03/11/2019- patient is lying comfortably in the bed appears to be no acute distress. She states that her abdomen is increasing in girth. She denies having any abdominal pain nausea vomiting or diarrhea. No dysuria or hematuria. No chest pain. Difficulty in breathing at baseline. Patient states that she has been prescribed antibiotic eye ointment for her left eye stye. She showed me her antibiotic eye ointment it is erythromycin ophthalmic cream. Discussed with the nursing staff that she can use her antibiotic cream for the stye. Active Medications Erythromycin (Romycin Ophth Oint) 1 applic LEFT EYE Q8HR FREDIS Furosemide (Lasix) 20 mg PO DAILY FREDIS Last Admin: 03/11/19 08:03 Dose: 20 mg Documented by: Hydromorphone HCl (Dilaudid) 0.5 mg IVP Q4HR PRN PRN Reason: Pain Last Admin: 03/11/19 16:07 Dose: 0.5 mg Documented by: Lactulose (Cephulac) 20 gm PO BID FREDIS Magnesium Oxide (Mag-Ox) 200 mg PO DAILY FREDIS Last Admin: 03/11/19 08:03 Dose: 200 mg Documented by: Metoprolol Tartrate (Lopressor) 25 mg PO DAILY [facility] Last Admin: 03/11/19 08:02 Dose: 25 mg Documented by: Spironolactone (Aldactone) 50 mg PO DAILY [facility] Last Admin: 03/11/19 08:03 Dose: 50 mg Documented by: Objective - Vital Signs Vital signs: Vital Signs Temp 98.5 F 03/11/19 14:33 Pulse 69 03/11/19 14:33 Resp 16 03/11/19 14:33 BP 132/84 03/11/19 14:33 Pulse Ox 100 03/11/19 14:33 Intake & Output 03/11/19 03/11/19 03/12/19 06:59 18:59 06:59 Intake Total 236 236 296 Balance 236 236 296 Intake: Oral 236 236 296 Other: Voiding Method Toilet # Voids 2 2 - Exam GEN. APPEARANCE: alert, in no apparent distress HEAD EXAM: atraumatic, normocephalic, normal inspection EYE EXAM: Mild pallor. Positive for icterus. ENT EXAM: normal exam, mucous membranes moist NECK EXAM: No thyromegaly. No lymphadenopathy. RESPIRATORY EXAM: Bilateral breath sounds are positive. No wheezes or crackles. CARDIOVASCULAR EXAM: S1 and S2 heard. GI/ABDOMINAL EXAM: Abdomen is distended. Nontender. Fluid thrill positive. EXTREMITIES EXAM: Bilateral pitting pedal edema. NEUROLOGICAL EXAM: alert, oriented X3, no focal neurological deficits PSYCHIATRIC EXAM: normal affect, normal mood - Labs CBC & Chem 7: 03/11/19 06:09 03/11/19 06:09 Labs: Abnormal Lab Results - Last 24 Hours (Table) 03/11/19 03/11/19 03/11/19 Range/Units 06:09 06:09 06:09 RBC 3.02 L (3.80-5.40) m/uL Hgb 10.6 L (11.4-16.0) gm/dL Hct 33.0 L (34.0-46.0) % MCV 109.4 H (80.0-100.0) fL MCH 35.1 H (25.0-35.0) pg RDW 19.2 H (11.5-15.5) % Plt Count 50 L (150-450) k/uL Macrocytosis Marked A PT (9.0-12.0) sec INR (<1.2) Sodium 130 L (137-145) mmol/L Carbon Dioxide 21 L (22-30) mmol/L Creatinine 0.46 L (0.52-1.04) mg/dL Calcium 8.0 L (8.4-10.2) mg/dL Total Bilirubin 9.4 H (0.2-1.3) mg/dL AST 91 H (14-36) U/L Alkaline Phosphatase 231 H (38-126) U/L Ammonia 38 H (<30) umol/L Albumin 2.7 L (3.5-5.0) g/dL 03/11/19 Range/Units 06:09 RBC (3.80-5.40) m/uL Hgb (11.4-16.0) gm/dL Hct (34.0-46.0) % MCV (80.0-100.0) fL MCH (25.0-35.0) pg RDW (11.5-15.5) % Plt Count (150-450) k/uL Macrocytosis PT 17.3 H (9.0-12.0) sec INR 1.7 H (<1.2) Sodium (137-145) mmol/L Carbon Dioxide (22-30) mmol/L Creatinine (0.52-1.04) mg/dL Calcium (8.4-10.2) mg/dL Total Bilirubin (0.2-1.3) mg/dL AST (14-36) U/L Alkaline Phosphatase (38-126) U/L Ammonia (<30) umol/L Albumin (3.5-5.0) g/dL Assessment and Plan Assessment: ASSESSMENT Ascites secondary to liver cirrhosis Alcohol liver cirrhosis Transaminitis Elevated PT/INR Left eye stye History of mitral valve prolapse Hypertension History of seizure disorder PLAN: Patient has history of recurrent ascites. She is admitted for paracentesis. Interventional radiology and GI have been consulted. She was seen by GI yesterday and has been started on spironolactone and lactulose. Yoselin nue with the rest of her medication regimen. SCDs for DVT prophylaxis in view of her chronic liver disease and elevated INR. Discussed with the patient that she continues erythromycin ophthalmic that she has from home. Further recommendations to follow depending on the progress of the patient.
--- NOTE | 2019-03-11 20:19 | P.PN ---
Subjective Progress Note Date: 03/11/19 Principal diagnosis: Decompensated liver cirrhosis with ascites Patient seen lying in bed, no abdominal pain but still reports distention. Tolerating her diet. Objective - Vital Signs Vital signs: Vital Signs Temp 98.5 F 03/11/19 14:33 Pulse 69 03/11/19 14:33 Resp 16 03/11/19 14:33 BP 132/84 03/11/19 14:33 Pulse Ox 100 03/11/19 14:33 Intake & Output 03/11/19 03/11/19 03/12/19 06:59 18:59 06:59 Intake Total 236 236 296 Balance 236 236 296 Intake: Oral 236 236 296 Other: Voiding Method Toilet # Voids 2 2 - Exam On physical examination, patient appears comfortable in no apparent distress. HEAD: Normocephalic, atraumatic. EYES: No scleral icterus. No conjunctival injection. MOUTH: No lesions, tongue midline. NECK: Trachea midline, no gross abnormalities. CHEST: Clear to auscultation with no wheezing or rhonchi appreciated. HEART: Regular rate and rhythm. ABDOMEN: Soft, distended with positive fluid wave. Bowel sounds are positive. No organomegaly. No guarding or rigidity. EXTREMITIES: No pedal edema. SKIN: No rashes, no jaundice. NEUROLOGIC: Alert and oriented x3, with no asterixis noted. No focal deficits. - Labs CBC & Chem 7: 03/11/19 06:09 03/11/19 06:09 Labs: Abnormal Lab Results - Last 24 Hours (Table) 03/11/19 03/11/19 03/11/19 Range/Units 06:09 06:09 06:09 RBC 3.02 L (3.80-5.40) m/uL Hgb 10.6 L (11.4-16.0) gm/dL Hct 33.0 L (34.0-46.0) % MCV 109.4 H (80.0-100.0) fL MCH 35.1 H (25.0-35.0) pg RDW 19.2 H (11.5-15.5) % Plt Count 50 L (150-450) k/uL Macrocytosis Marked A PT (9.0-12.0) sec INR (<1.2) Sodium 130 L (137-145) mmol/L Carbon Dioxide 21 L (22-30) mmol/L Creatinine 0.46 L (0.52-1.04) mg/dL Calcium 8.0 L (8.4-10.2) mg/dL Total Bilirubin 9.4 H (0.2-1.3) mg/dL AST 91 H (14-36) U/L Alkaline Phosphatase 231 H (38-126) U/L Ammonia 38 H (<30) umol/L Albumin 2.7 L (3.5-5.0) g/dL 03/11/19 Range/Units 06:09 RBC (3.80-5.40) m/uL Hgb (11.4-16.0) gm/dL Hct (34.0-46.0) % MCV (80.0-100.0) fL MCH (25.0-35.0) pg RDW (11.5-15.5) % Plt Count (150-450) k/uL Macrocytosis PT 17.3 H (9.0-12.0) sec INR 1.7 H (<1.2) Sodium (137-145) mmol/L Carbon Dioxide (22-30) mmol/L Creatinine (0.52-1.04) mg/dL Calcium (8.4-10.2) mg/dL Total Bilirubin (0.2-1.3) mg/dL AST (14-36) U/L Alkaline Phosphatase (38-126) U/L Ammonia (<30) umol/L Albumin (3.5-5.0) g/dL Assessment and Plan (1) Ascites due to alcoholic cirrhosis Narrative/Plan: 43-year-old female with a known history of decompensated alcoholic cirrhosis presenting with increasing ascites and abdominal distention. Currently only on home dose of Lasix 20 mg daily, she reports requiring paracentesis one time in the past. Current Visit: Yes Status: Acute Code(s): K70.31 - ALCOHOLIC CIRRHOSIS OF LIVER WITH ASCITES SNOMED Code(s): 9956910204206584 (2) Abdominal pain Current Visit: Yes Status: Acute Code(s): R10.9 - UNSPECIFIED ABDOMINAL PAIN SNOMED Code(s): 11031749 Plan: Supportive care Okay for sodium restricted diet Continue Lasix 20 mg daily Aldactone 50 mg daily Ultrasound-guided paracentesis Alcohol abstinence Ammonia level elevated, lactulose added today to be titrated to 2-3 bowel movem ents daily Thank you for allowing us to participate in the care of the patient we will continue to follow
[2019-03-11] MEDS: LACTULOSE 20 GM/30 ML CUP PO SCH (20:27)
[2019-03-11] MEDS: ERYTHROMYCIN 5 MG/GM OPHTH OINT 3.5 GM TUBE LEFT EYE SCH (23:00)
[2019-03-12] MEDS: HYDROmorphone 0.5 MG/0.5 ML SYRINGE IVP PRN ×3 (01:21→09:23)
[2019-03-12 07:01] VITALS: BP 121/75; PULSE 72; RESP 16; TEMP 98.4
[2019-03-12] MEDS: SPIRONOLACTONE 25 MG TAB PO SCH (08:31)
[2019-03-12] MEDS: MAGNESIUM OXIDE 400 MG TAB PO SCH (08:32)
[2019-03-12] MEDS: METOPROLOL TARTRATE 25 MG TAB PO SCH (08:32)
[2019-03-12] MEDS: FUROSEMIDE 20 MG TAB PO SCH (08:32)
[2019-03-12] MEDS: LACTULOSE 20 GM/30 ML CUP PO SCH (08:33)
[2019-03-12] MEDS: ERYTHROMYCIN 5 MG/GM OPHTH OINT 3.5 GM TUBE LEFT EYE SCH (08:33)
[2019-03-12 08:35] LABS: African American GFR (CKD) >90 (>60 ml/min/1.73 sqM); Anion Gap 6 mmol/L; Blood Urea Nitrogen 8 mg/dL (7-17); Calcium 7.9 mg/dL (8.4-10.2); Carbon Dioxide 22 mmol/L (22-30); Chloride 107 mmol/L (98-107); Glucose 90 mg/dL (74-99); Potassium 4.1 mmol/L (3.5-5.1); Sodium 135 mmol/L (137-145)
--- NOTE | 2019-03-12 09:04 | US ---
EXAMINATION TYPE: US abdomen limited DATE OF EXAM: 03/12/2019 COMPARISON: 03/09/2019 CLINICAL HISTORY: assess for fluid pocket please. Ascites check Small amount of ascites seen within all 4 quadrants and midline pelvis. Ascites may be minimally increased from 03/09/2019. IMPRESSION: 1. Ascites is present to a small degree within all 4 quadrants visualized.
[2019-03-12 09:25] LABS: Anisocytosis Slight; Basophils % (A) 1 %; Eosinophils # (A) 0.1 k/uL (0-0.7); Eosinophils % (A) 2 %; HCT 32.5 % (34.0-46.0); HGB 10.6 gm/dL (11.4-16.0); Lymphocytes # (A) 1.4 k/uL (1.0-4.8); Lymphocytes % (A) 29 %; MCH 35.7 pg (25.0-35.0); MCHC 32.7 g/dL (31.0-37.0); Macrocytosis Marked; Mean Platelet Volume 8.7; Monocytes # (A) 0.6 k/uL (0-1.0); Monocytes % (A) 13 %; Neutrophils # (A) 2.4 k/uL (1.3-7.7); Neutrophils % (A) 51 %; RBC 2.98 m/uL (3.80-5.40); WBC 4.7 k/uL (3.8-10.6)
[2019-03-12 09:31] LABS: Platelet Count 57 k/uL (150-450)
[2019-03-12 11:29] LABS: Poikilocytosis (M) Present; Toxic Granulation Present
--- NOTE | 2019-03-12 14:35 | P.DS ---
Providers Date of admission: 03/09/19 20:09 Expected date of discharge: 03/12/19 Attending physician: Naresh Cole Consults: 03/09/19 20:08 Consult Physician Routine Consulting Provider: Nick Quijano Consult Reason/Comments: cirrhosis Do you want consulting provider notified?: Yes Primary care physician: Stated None Hospital Course: Ms. Yip is a 43-year-old female with a past medical history of hypertension, mitral valve prolapse, alcohol liver cirrhosis coming into the hospital with a chief complaint of increasing abdominal girth and abdominal pain. Patient reports of alcohol abuse, she has been drinking vodka for many years and was diagnosed with alcohol liver cirrhosis. Eventually she admits to drinking beer on a daily basis. She states that her abdominal swelling is increasing and she is not able to perform her activities of daily living. Patient denies having any fevers chills or rigors. No abdominal pain nausea vomiting, diarrhea or constipation. She denies having any blood in the stool. No hematemesis. Patient has bilateral lower extremity swelling that has been stable. Patient denies having any chest pain. But she reports mild difficulty in breathing has her abdomen is full. No cough. No sick contacts. In the ER patient had an abdominal ultrasound showing hyperechoic fatty infiltration of the liver. Her labs were showing hemoglobin at 11 with macrocytosis. But his elevation of PT/INR. Mild elevation in her AST, ALT and ALP. She has been admitted for paracentesis. Hospital course: Patient had stayed in the hospital over the weekend. On Tuesday morning she had an ultrasound of the abdomen done, but the patient had only minimal amount of acetic fluid. She was informed that it cannot be tapped. Patient was very upset and left the hospital AGAINST MEDICAL ADVICE. DISCHARGE DIAGNOSIS Ascites secondary to liver cirrhosis Alcohol liver cirrhosis Transaminitis Elevated PT/INR History of mitral valve prolapse Hypertension History of seizure disorder PLAN: When I went into the room to talk to her about the treatment plan, the patient was very upset. She was already dressed up and pulled her IV and walked away AGAINST MEDICAL ADVICE Patient Condition at Discharge: Critical Plan - Discharge Summary New Discharge Prescriptions: No Action Metoprolol Tartrate [Lopressor] 25 mg PO DAILY Furosemide [Lasix] 20 mg PO DAILY Magnesium 200 mg PO DAILY Discharge Medication List Furosemide [Lasix] 20 mg PO DAILY 03/09/19 [History] Magnesium 200 mg PO DAILY 03/09/19 [History] Metoprolol Tartrate [Lopressor] 25 mg PO DAILY 03/09/19 [History] Follow up Appointment(s)/Referral(s): None,Stated [Primary Care Provider] - 1-2 days Discharge Disposition: Left Against Medical Advice
== END 2019-03-12 11:37 | disposition left against medical advice (07) ==
LOC: EC 16:14 → 4SSUR 20:09
PROVIDERS: ADMIT Hospitalist; ATTEND Hospitalist
DX: K70.31 Alcoholic cirrhosis of liver with ascites (principal); I10 Essential (primary) hypertension; G40.909 Epilepsy, unspecified, not intractable, without status epilepticus; I34.1 Nonrheumatic mitral (valve) prolapse; F31.9 Bipolar disorder, unspecified; F17.200 Nicotine dependence, unspecified, uncomplicated; D75.89 Other specified diseases of blood and blood-forming organs; E66.9 Obesity, unspecified; Z68.27 Body mass index [BMI] 27.0-27.9, adult; R79.1 Abnormal coagulation profile; R41.3 Other amnesia; G47.9 Sleep disorder, unspecified; H57.9 Unspecified disorder of eye and adnexa; H35.9 Unspecified retinal disorder; K76.0 Fatty (change of) liver, not elsewhere classified; H00.016 Hordeolum externum left eye, unspecified eyelid; Z79.899 Other long term (current) drug therapy; Z91.030 Bee allergy status; Z90.710 Acquired absence of both cervix and uterus; Z87.828 Personal history of other (healed) physical injury and trauma; Z53.21 Procedure and treatment not carried out due to patient leaving prior to being seen by health care provider
CPT/HCPCS: 96376 ×4; 96375 ×2; 96374; 99285; 36415; 80053 ×2; 80048; 82140 ×2; 82150; 83690; 83735; 84100; 85025 ×3; 85610 ×2; 85730; 81001; 76705 ×2; G0378 ×4; G0480; J2270 ×2; J2405; J1170 ×4; 80320

== ENCOUNTER → 2019-03-09 | Outpatient (CLI) | payer OTHER ==
--- NOTE | 2019-03-11 19:10 | MR ---
EXAMINATION TYPE: MR brain wo/w con DATE OF EXAM: 03/09/2019 COMPARISON: CT brain 02/26/2018 HISTORY: Closed head injury /Transient visual loss TECHNIQUE: Multiplanar, multisequence images of the brain and brainstem is performed without and with IV contras t, utilizing 6 mL intravenous Gadavist . FINDINGS: Diffusion weighted images demonstrate no evidence of a recent infarct or other diffusion ab normality. There is no extra-axial fluid collection or significant white matter signal abnormality. Single focus of juxtacortical hyperintensity and inversion recovery T2-weighted sequences axial imag e 20 in the right parietal lobe measures 3 mm in size, similar focus in the left frontal lobe on axia l image 15. The ventricular system and cisternal spaces are normal in size and appearance. The brain volume is age appropriate. Midline structures demonstrate normal morphology. The craniocervical junction appears within normal limits. Post contrast images demonstrate no abnormal enhancement. The dural venous sinuses appear pa tent. The visualized sinuses are clear and the globes are intact. IMPRESSION: Nonspecific foci of hyperintensity in the white matter of questionable clinical significa nce. No other significant abnormality is evident.
== END | disposition home or self-care (01) ==
LOC: RADMRIMAIN 14:51
PROVIDERS: ATTEND Ophthalmology
DX: S09.90XA Unspecified injury of head, initial encounter (principal); H53.123 Transient visual loss, bilateral
CPT/HCPCS: 70553; A9585

== ENCOUNTER → 2019-04-06 | Outpatient (CLI) | payer OTHER ==
--- NOTE | 2019-04-06 14:28 | US ---
EXAMINATION TYPE: US carotid duplex BILAT DATE OF EXAM: 04/06/2019 COMPARISON: NONE CLINICAL HISTORY: H53.8 BLURRED VISION. EXAM MEASUREMENTS: RIGHT: Peak Systolic Velocity (PSV) cm/sec ----- Right CCA: 109.9 ----- Right ICA: 112.8 ----- Right ECA: 108.4 ICA/CCA ratio: 1.0 RIGHT: End Diastole cm/sec ----- Right CCA: 27.0 ----- Right ICA: 41.6 ----- Right ECA: 21.4 LEFT: Peak Systolic Velocity (PSV) cm/sec ----- Left CCA: 86.5 ----- Left ICA: 91.4 ----- Left ECA: 122.1 ICA/CCA ratio: 1.1 LEFT: End Diastole cm/sec ----- Left CCA: 19.7 ----- Left ICA: 26.7 ----- Left ECA: 26.8 VERTEBRALS (direction of flow): Right Vertebral: Antegrade Left Vertebral: Antegrade Rhythm: Normal, possible tachycardic very small amount of atherosclerotic changes seen. IMPRESSION: 1. Mild degree of grayscale atheromatous plaquing with no sonographically evident hemodynamically sig nificant stenosis within either visualized carotid arterial system.. 2. Cardiac rhythm is regular limits however appears tachycardic. Correlate with EKG. Criteria for Assigning % of Stenosis / Diameter reduction (Estimation based on the indirect measurements of the internal carotid artery velocities (ICA PSV). 1. Normal (no stenosis)=ICA PSV < 125 cm/s: ratio < 2.0: ICA EDV<40 cm/s. 2. Less than 50% stenosis=ICA PSV < 125 cm/s: ratio < 2.0: ICA EDV<40 cm/s. 3. 50 to 69% stenosis=ICA PSV of 125 to 230 cm/s: ration 2.0 ? 4.0: ICA EDV 40-100 cm/s. 4. Greater than 70% stenosis to near occlusion= ICA PSV > 230 cm/s: ratio > 4.0: ICA EDV > 100 cm/s. 5. Near occlusion= ICA PSV velocities may be low or undetectable: variable ratio and ICA EDV. 6. Total occlusion=unable to detect flow.
== END | disposition home or self-care (01) ==
LOC: RADUSWWP 13:43
PROVIDERS: ATTEND Psychiatry & Neurology Neurology
DX: I65.29 Occlusion and stenosis of unspecified carotid artery (principal); R00.0 Tachycardia, unspecified; H53.8 Other visual disturbances
CPT/HCPCS: 93880

== ENCOUNTER 2019-05-29 15:47 | Emergency (ER) | payer OTHER ==
--- NOTE | 2019-05-29 17:46 | XR ---
PROCEDURE: XR humerus RT - 2V DATE AND TIME: 05/29/2019 5:13 PM CLINICAL INDICATION: Pain; hx of fx hardware, pain TECHNIQUE: Imaging obtained from the shoulder to the elbow with AP and internal rotation lateral view s. COMPARISON: 07/26/2018 FINDINGS: The orthopedic hardware is intact without periprosthesis lucencies. There is architectural distortion at the proximal humeral shaft fracture, at the site of the previous ly seen comminuted fracture. This anatomy is obscured on the internal rotation lateral humeral view. As seen, there is no definite new fracture. There is no malalignment. The soft tissues are unremarkable. No incidental findings. IMPRESSION: No definite acute radiographic process.
--- NOTE | 2019-05-29 17:49 | ED ---
General Adult HPI - General Chief complaint: Abdominal Pain Stated complaint: Stomach pain Time Seen by Provider: 05/29/19 16:50 Source: patient, RN notes reviewed, old records reviewed Mode of arrival: ambulatory Limitations: no limitations - History of Present Illness Initial comments: 43-year-old female patient past medical history of alcoholic cirrhosis, ascites presents to ED for chief complaint of bulge in her umbilical area. Patient course of an ongoing for approximately 2 days. Patient also has a secondary complaint of right shoulder pain. Patient reports that she had hardware inserted for humerus fracture approximately 3 years ago. Has been having pain the last 2 weeks. Denies any signs and symptoms of infection denies any other complaints at this time. Systemic: Pt denies fatigue, fever/chills, rash. Pt denies weakness, night sweats, weight loss. Neuro: Pt denies headache, visual disturbances, syncope or pre-syncope. HEENT: Pt denies ocular discharge or irritation, otalgia, rhinorrhea, pharyngitis or notable lymphadenopathy. Cardiopulmonary: Pt denies chest pain, SOB, heart palpitations, dyspnea on exertion. Abdominal/GI: Pt denies abdominal pain, n/v/d. : Pt denies dysuria, burning w/ urination, frequency/urgency. Denies new onset urinary or bowel incontinence. MSK: Pt denies myalgia, loss of strength or function in extremities. Neuro: Pt denies new onset weakness, paresthesias. - Related Data Home Medications Medication Instructions Recorded Confirmed Furosemide [Lasix] 20 mg PO DAILY 03/09/19 05/15/19 Magnesium 200 mg PO DAILY 03/09/19 05/15/19 Metoprolol Tartrate [Lopressor] 25 mg PO DAILY 03/09/19 05/15/19 Folic Acid 1 mg PO DAILY 05/15/19 05/15/19 Pnv,Calcium 72/Iron/Folic Acid 1 each PO DAILY 05/15/19 05/15/19 [ Plus Tablet] Spironolactone [Aldactone] 50 mg PO DAILY 05/15/19 05/15/19 Allergies Allergy/AdvReac Type Severity Reaction Status Date / Time bee venom protein (honey bee) Allergy Swelling Verified 05/29/19 16:21 Review of Systems ROS Statement: Those systems with pertinent positive or pertinent negative responses have been documented in the HPI. ROS Other: All systems not noted in ROS Statement are negative. 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 Date of last positivie culture/infection: 2003 MDRO Source:: LT ELBOW Past Surgical History: Hysterectomy, Orthopedic Surgery, Tubal Ligation Additional Past Surgical History / Comment(s): plate to right lower arm, wisdom teeth, samantha in right upper arm Past Anesthesia/Blood Transfusion Reactions: No Reported Reaction Past Psychological History: Anxiety, Bipolar Smoking Status: Current every day smoker Past Alcohol Use History: None Reported Past Drug Use History: None Reported - Past Family History Mother Family Medical History: Unable to Obtain Father Family Medical History: Unable to Obtain General Exam - General Exam Comments Initial Comments: Constitutional: NAD, AOX3, Pt has pleasant affect. HEENT: NC/AT, trachea midline, neck supple, no lymphadenopathy. Posterior pharynx non erythematous, without exudates. External ears appear normal, without discharge. Mucous membranes moist. Eyes PERRLA, EOM intact. There is no scleral icterus. No pallor noted. Cardiopulmonary: RRR, no murmurs, rubs or gallops, no JVD noted. Lungs CTAB in anterior and posterior donis. No peripheral edema. Abdominal exam: Abdomen soft and non-distended. Abdomen non-tender to palpation in all 4 quadrants. Bowel sounds active in LLQ. No hepatosplenomegaly. No ecchymosis. Small reducible umbilical hernia noted. No skin changes. Neuro: CN II-XII grossly intact. No nuchal rigidity. No raccon eyes, no anderson sign, no hemotympanum. No cervical spinal tenderness. MSK: Right shoulder nontender to palpation, full active range of motion. Skin changes, neurovascularly intact.. No skin No posterior calf tenderness bilaterally, homans sign negative bilaterally. Posterior tibialis and radial pulse +2 bilaterally. Sensation intact in upper and lower extremities. Full active ROM in upper and lower extremities, 5/5 stregnth. Limitations: no limitations Course Vital Signs 05/29/19 05/29/19 16:19 16:45 Temperature 97.7 F 97.6 F Pulse Rate 92 83 Respiratory 18 17 Rate Blood Pressure 127/81 102/66 O2 Sat by Pulse 100 97 Oximetry Medical Decision Making - Medical Decision Making 43-year-old female patient past medical history significant for alcoholic cirrhosis presents to ED for chief complaint of fall from her umbilical area. Patient vital signs are stable, afebrile. Physical exam this displayed a small reducible umbilical hernia. Patient's secondary complaint of some right shoulder pain following humerus fracture and hardware implementation approximately 3 years ago. Full active range of motion. No skin changes. Neurovascularly intact. Sclerae appears intact and plain film. Patient was discharged to follow-up with primary care provider and surgery consult. Will return to ER if condition worsens. Case discussed with Dr. Mccallum. Disposition Clinical Impression: Umbilical hernia Disposition: HOME SELF-CARE Condition: Stable Instructions (If sedation given, give patient instructions): Umbilical Hernia (ED) Additional Instructions: Follow-up with primary care provider and general surgeon tomorrow. Return to ER if condition worsens in any way. Is patient prescribed a controlled substance at d/c from ED?: No Referrals: None,Stated [Primary Care Provider] - 1-2 days Steve Jordan MD [STAFF PHYSICIAN[facility] - [facility]-2 days
[2019-05-29 18:08] VITALS: BP 108/76; PULSE 76; RESP 18; TEMP 99.2
== END 2019-05-29 18:07 | disposition home or self-care (01) ==
LOC: EC 15:47
DX: K42.9 Umbilical hernia without obstruction or gangrene (principal); K70.31 Alcoholic cirrhosis of liver with ascites; M25.511 Pain in right shoulder; I10 Essential (primary) hypertension; I34.1 Nonrheumatic mitral (valve) prolapse; G40.909 Epilepsy, unspecified, not intractable, without status epilepticus; F17.200 Nicotine dependence, unspecified, uncomplicated; Z79.899 Other long term (current) drug therapy; Z91.030 Bee allergy status; Z87.81 Personal history of (healed) traumatic fracture; Z96.698 Presence of other orthopedic joint implants; Z86.14 Personal history of Methicillin resistant Staphylococcus aureus infection
CPT/HCPCS: 99284

== ENCOUNTER 2019-07-10 14:57 | Emergency (ER) | payer OTHER ==
[2019-07-10 15:10] VITALS: RESP 18
[2019-07-10] MEDS ORDERED: SODIUM CHLORIDE 0.9% 500 ML 500 ML IV STA (15:58)
[2019-07-10] MEDS ORDERED: KETOROLAC 30 MG/ML 1 ML VIAL IVP STA (15:59)
[2019-07-10 16:28] LABS: ALT 29 U/L (4-34); AST 54 U/L (14-36); African American GFR (CKD) >90 (>60 ml/min/1.73 sqM); Albumin 3.2 g/dL (3.5-5.0); Alkaline Phosphatase 146 U/L (38-126); Amylase 57 U/L (30-110); Anion Gap 8 mmol/L; Blood Urea Nitrogen 11 mg/dL (7-17); Calcium 8.5 mg/dL (8.4-10.2); Carbon Dioxide 22 mmol/L (22-30); Chloride 107 mmol/L (98-107); Glucose 105 mg/dL (74-99); Non-African American GFR(CKD) >90 (>60 ml/min/1.73 sqM); Potassium 3.8 mmol/L (3.5-5.1); Sodium 137 mmol/L (137-145); Total Bilirubin 2.9 mg/dL (0.2-1.3); Total Protein 7.4 g/dL (6.3-8.2)
--- NOTE | 2019-07-10 16:36 | US ---
EXAMINATION TYPE: US abdomen limited DATE OF EXAM: 07/10/2019 COMPARISON: 03/12/2019 CLINICAL HISTORY: RUQ pain. EXAM MEASUREMENTS: Liver Length: 13.5 cm Gallbladder Wall: 0.3 cm CBD: 0.4 cm Right Kidney: 10.1 X 5.6 X 5.9 cm Technically difficult due to extensive midline bowel gas. Pancreas: visualized portions wnl Liver: wnl Gallbladder: No stones seen Evidence for sonographic Kruse's sign: No CBD: wnl Right Kidney: No hydronephrosis or masses seen Small amount of free fluid around liver. IMPRESSION: 1. Limited exam demonstrates a tiny amount of fluid surrounding the liver. Increased echo pattern can be seen with hepatic steatosis or hepatitis. 2. Bladder wall measures at the upper limits of normal at 3 mm correlate clinically.
[2019-07-10 16:38] LABS: Anisocytosis Slight; HCT 32.9 % (34.0-46.0); HGB 10.5 gm/dL (11.4-16.0); MCHC 31.8 g/dL (31.0-37.0); MCV 97.2 fL (80.0-100.0); Mean Platelet Volume 8.1; RBC 3.39 m/uL (3.80-5.40); RDW 16.1 % (11.5-15.5); WBC 3.2 k/uL (3.8-10.6)
[2019-07-10 16:44] LABS: Appearance,Urine Clear (Clear); Bilirubin,Urine Negative (Negative); Blood,Urine Negative (Negative); Color,Urine Yellow; Glucose,Urine (UA) Negative (Negative); Ketones,Urine Negative (Negative); Leukocyte Esterase,Urine Negative (Negative); Nitrite,Urine Negative (Negative); Protein,Urine Trace (Negative); Specific Gravity,Urine 1.017 (1.001-1.035)
[2019-07-10 16:59] LABS: Band Neutrophils % 5 %; Basophils # (M) 0.03 k/uL (0-0.2); Eosinophils # (M) 0.16 k/uL (0-0.7); Lymphocytes # (M) 1.22 k/uL (1.0-4.8); Monocytes # (M) 0.22 k/uL (0-1.0); Neutrophils % (M) 44 %; Nucleated Red Blood Cells 0 /100 WBC (0-0); Poikilocytosis (M) Present; Total Cells Counted 100
[2019-07-10 17:00] LABS: Platelet Count 66 k/uL (150-450)
--- NOTE | 2019-07-10 17:18 | ED ---
General Adult HPI - General Chief complaint: Abdominal Pain Stated complaint: Abdominal pain Time Seen by Provider: 07/10/19 15:15 Source: EMS, RN notes reviewed Mode of arrival: EMS Limitations: no limitations - History of Present Illness Initial comments: 43-year-old female with a past medical history of alcoholic cirrhosis, ascites, hepatic encephalopathy presents to the emergency department for a chief complaint of right upper quadrant pain. Patient states she always has right upper quadrant pain and sometimes it is worse than others. States that right now her pain is worsened. States she was feeling weak earlier and thought her ammonia could be elevated. States she is taking her lactulose as directed twice daily. Patient states she quit drinking 6 months ago. Denies fevers or chills. States she is scheduled for a scope on Tuesday because of this chronic pain.Patient has no other complaints at this time including shortness of breath, chest pain, nausea or vomiting, headache, or visual changes. - Related Data Home Medications Medication Instructions Recorded Confirmed Furosemide [Lasix] 20 mg PO DAILY 03/09/19 05/15/19 Magnesium 200 mg PO DAILY 03/09/19 05/15/19 Metoprolol Tartrate [Lopressor] 25 mg PO DAILY 03/09/19 05/15/19 Folic Acid 1 mg PO DAILY 05/15/19 05/15/19 Pnv,Calcium 72/Iron/Folic Acid 1 each PO DAILY 05/15/19 05/15/19 [ Plus Tablet] Spironolactone [Aldactone] 50 mg PO DAILY 05/15/19 05/15/19 Allergies Allergy/AdvReac Type Severity Reaction Status Date / Time bee venom protein (honey bee) Allergy Swelling Verified 05/29/19 16:21 Review of Systems ROS Statement: Those systems with pertinent positive or pertinent negative responses have been documented in the HPI. ROS Other: All systems not noted in ROS Statement are negative. Past Medical History Past Medical History: Eye Disorder, Hypertension, Mitral Valve Prolapse (MVP), Seizure Disorder Additional Past Medical History / Comment(s): seizured related to alcohol withdrawal, ACITIES,cirrhosis of the liver, retinal damage r/t head trauma. Hepatic encephelapothy. History of Any Multi-Drug Resistant Organisms: MRSA Date of last positivie culture/infection: 2003 MDRO Source:: LT ELBOW Past Surgical History: Hysterectomy, Orthopedic Surgery, Tubal Ligation Additional Past Surgical History / Comment(s): plate to right lower arm, wisdom teeth, samantha in right upper arm Past Anesthesia/Blood Transfusion Reactions: No Reported Reaction Past Psychological History: Anxiety, Bipolar Smoking Status: Current every day smoker Past Alcohol Use History: None Reported Past Drug Use History: None Reported - Past Family History Mother Family Medical History: Unable to Obtain Father Family Medical History: Unable to Obtain General Exam Limitations: no limitations General appearance: alert, in no apparent distress Head exam: Present: atraumatic, normocephalic, normal inspection Eye exam: Present: normal appearance, PERRL, EOMI. Absent: scleral icterus, conjunctival injection, periorbital swelling ENT exam: Present: normal exam, mucous membranes moist Neck exam: Present: normal inspection, full ROM. Absent: tenderness, m eningismus, lymphadenopathy Respiratory exam: Present: normal lung sounds bilaterally. Absent: respiratory distress, wheezes, rales, rhonchi, stridor Cardiovascular Exam: Present: regular rate, normal rhythm, normal heart sounds. Absent: systolic murmur, diastolic murmur, rubs, gallop, clicks GI/Abdominal exam: Present: soft, tenderness (Mild right upper quadrant tenderness. No epigastric or left upper quadrant tenderness. Abdomen is soft. No rigidity. Lower abdomen is nontender.), normal bowel sounds. Absent: di stended, guarding, rebound, rigid Neurological exam: Present: alert Course Vital Signs 07/10/19 15:04 Temperature 97.9 F Pulse Rate 74 Respiratory 18 Rate Blood Pressure 121/63 O2 Sat by Pulse 100 Oximetry Medical Decision Making - Medical Decision Making Physical examination generally unremarkable. CBC does have mild anemia which is patient's baseline. Darvocet of pain he also patient's baseline. CMP shows an improved bilirubin of 2.9 down from 9.44 months ago. AST and ALP have also improved. Urinalysis unremarkable. Ultrasound was obtained and demonstrated a tiny amount of fluid starting the liver. Bladder wall measures at the upper limits of normal. Given history of chronic pain in an improved bilirubin is likely not acute. Patient was reevaluated noticing much better. Patient will be discharged home to follow up with primary care in stable condition. She'll return if she has any worsening of this. - Lab Data Result diagrams: 07/10/19 15:30 07/10/19 15:30 Lab Results 07/10/19 07/10/19 07/10/19 Range/Units 15:30 15:30 15:30 WBC 3.2 L (3.8-10.6) k/uL RBC 3.39 L (3.80-5.40) m/uL Hgb 10.5 L (11.4-16.0) gm/dL Hct 32.9 L (34.0-46.0) % MCV 97.2 (80.0-100.0) fL MCH 31.0 (25.0-35.0) pg MCHC 31.8 (31.0-37.0) g/dL RDW 16.1 H (11.5-15.5) % Plt Count 66 L (150-450) k/uL Neutrophils % (Manual) 44 % Band Neutrophils % 5 % Lymphocytes % (Manual) 38 % Monocytes % (Manual) 7 % Eosinophils % (Manual) 5 % Basophils % (Manual) 1 % Neutrophils # (Manual) 1.50 (1.3-7.7) k/uL Lymphocytes # (Manual) 1.22 (1.0-4.8) k/uL Monocytes # (Manual) 0.22 (0-1.0) k/uL Eosinophils # (Manual) 0.16 (0-0.7) k/uL Basophils # (Manual) 0.03 (0-0.2) k/uL Nucleated RBCs 0 (0-0) /100 WBC Manual Slide Review Performed Poikilocytosis (manual Present Anisocytosis Slight Sodium 137 (137-145) mmol/L Potassium 3.8 (3.5-5.1) mmol/L Chloride 107 (98-107) mmol/L Carbon Dioxide 22 (22-30) mmol/L Anion Gap 8 mmol/L BUN 11 (7-17) mg/dL Creatinine 0.69 (0.52-1.04) mg/dL Est GFR (CKD-EPI)AfAm >90 (>60 ml/min/1.73 sqM) Est GFR (CKD-EPI)NonAf >90 (>60 ml/min/1.73 sqM) Glucose 105 H (74-99) mg/dL Calcium 8.5 (8.4-10.2) mg/dL Total Bilirubin 2.9 H (0.2-1.3) mg/dL AST 54 H (14-36) U/L ALT 29 (4-34) U/L Alkaline Phosphatase 146 H (38-126) U/L Ammonia 24 (<30) umol/L Total Protein 7.4 (6.3-8.2) g/dL Albumin 3.2 L (3.5-5.0) g/dL Amylase 57 (30-110) U/L Lipase 290 (23-300) U/L Urine Color Urine Appearance (Clear) Urine pH (5.0-8.0) Ur Specific [place] (1.001-1.035) Urine Protein (Negative) Urine Glucose (UA) (Negative) Urine Ketones (Negative) Urine Blood (Negative) Urine Nitrite (Negative) Urine Bilirubin (Negative) Urine Urobilinogen (<2.0) mg/dL Ur Leukocyte Esterase (Negative) 07/10/19 Range/Units 16:30 WBC (3.8-10.6) k/uL RBC (3.80-5.40) m/uL Hgb (11.4-16.0) gm/dL Hct (34.0-46.0) % MCV (80.0-100.0) fL MCH (25.0-35.0) pg MCHC (31.0-37.0) g/dL RDW (11.5-15.5) % Plt Count (150-450) k/uL Neutrophils % (Manual) % Band Neutrophils % % Lymphocytes % (Manual) % Monocytes % (Manual) % Eosinophils % (Manual) % Basophils % (Manual) % Neutrophils # (Manual) (1.3-7.7) k/uL Lymphocytes # (Manual) (1.0-4.8) k/uL Monocytes # (Manual) (0-1.0) k/uL Eosinophils # (Manual) (0-0.7) k/uL Basophils # (Manual) (0-0.2) k/uL Nucleated RBCs (0-0) /100 WBC Manual Slide Review Poikilocytosis (manual Anisocytosis Sodium (137-145) mmol/L Potassium (3.5-5.1) mmol/L Chloride (98-107) mmol/L Carbon Dioxide (22-30) mmol/L Anion Gap mmol/L BUN (7-17) mg/dL Creatinine (0.52-1.04) mg/dL Est GFR (CKD-EPI)AfAm (>60 ml/min/1.73 sqM) Est GFR (CKD-EPI)NonAf (>60 ml/min/1.73 sqM) Glucose (74-99) mg/dL Calcium (8.4-10.2) mg/dL Total Bilirubin (0.2-1.3) mg/dL AST (14-36) U/L ALT (4-34) U/L Alkaline Phosphatase (38-126) U/L Ammonia (<30) umol/L Total Protein (6.3-8.2) g/dL Albumin (3.5-5.0) g/dL Amylase (30-110) U/L Lipase (23-300) U/L Urine Color Yellow Urine Appearance Clear (Clear) Urine pH 6.0 (5.0-8.0) Ur Specific [place] 1.017 (1.001-1.035) Urine Protein Trace H (Negative) Urine Glucose (UA) Negative (Negative) Urine Ketones Negative (Negative) Urine Blood Negative (Negative) Urine Nitrite Negative (Negative) Urine Bilirubin Negative (Negative) Urine Urobilinogen 4.0 (<2.0) mg/dL Ur Leukocyte Esterase Negative (Negative) Disposition Clinical Impression: Chronic abdominal pain Disposition: HOME SELF-CARE Condition: Good Instructions (If sedation given, give patient instructions): Abdominal Pain (ED) Additional Instructions: Please continue to take her lactulose as directed. Please follow-up with primary care in 1-2 days. If you have any worsening symptoms return here to the emergency department. Is patient prescribed a controlled substance at d/c from ED?: No Referrals: Alexsandra Cam MD [Primary Care Provider] - 1-2 days Time of Disposition: 17:28
[2019-07-10 18:01] VITALS: BP 103/65; PULSE 70; TEMP 98.1
== END 2019-07-10 18:01 | disposition home or self-care (01) ==
LOC: EC 14:57
DX: R10.11 Right upper quadrant pain (principal); G89.29 Other chronic pain; D64.9 Anemia, unspecified; R53.1 Weakness; I10 Essential (primary) hypertension; F17.200 Nicotine dependence, unspecified, uncomplicated; Z91.030 Bee allergy status; Z79.899 Other long term (current) drug therapy; Z86.14 Personal history of Methicillin resistant Staphylococcus aureus infection
CPT/HCPCS: 99284; 96374; 36415; 80053; 82140; 82150; 83690; 85025; 81003; 76705; J1885

== ENCOUNTER 2019-07-18 10:43 | Day surgery (SDC) | payer OTHER ==
[2019-07-13 10:20] VITALS: BMI 23.0
[~2019-07-18 10:43] MED LIST: LACTATED RINGERS 1,000 ML IV SCH; LIDOCAINE 1% 20 ML VIAL (10MG/ML) FOR IV START INTRADERMA PRN; TETRACAINE 0.5% OPHTH (PF) DROPS 4 ML BTL OP ONE
[2019-07-18] MEDS: TROPICAMIDE 1% OPHTH DROPS 2 ML BTL LEFT EYE SCH ×3 (11:12→11:36)
[2019-07-18] MEDS: PHENYLEPHRINE 2.5% OPHTH DRP 2ML OP SCH ×3 (11:15→11:39)
[2019-07-18] MEDS: CYCLOPENTOLATE 1% OPHTH SOLN 2 ML BTL OP SCH ×3 (11:18→11:42)
[2019-07-18] MEDS: CIPROFLOXACIN 0.3% OPHTH SOLN 5 ML BTL LEFT EYE SCH ×3 (11:21→11:45)
[2019-07-18] MEDS ORDERED: METOPROLOL TARTRATE 50 MG TAB PO ONE (11:44)
[2019-07-18 11:48] VITALS: RESP 16; TEMP 97.9
[2019-07-18] MEDS ORDERED: BALANCED SALT IRRIG SOLN COMB2 15 ML IRRIG.SOLN INTRAOCULA ONE (12:06)
[2019-07-18] MEDS ORDERED: CIPROFLOXACIN 0.3% OPHTH SOLN 5 ML BTL LEFT EYE ONE (12:07)
[2019-07-18] MEDS ORDERED: NEOMYCIN-POLYMYXIN-DEXAMETH OINT 3.5 GM TUBE LEFT EYE ONE (12:21)
[2019-07-18] MEDS ORDERED: MIDAZOLAM 2 MG/2 ML VIAL ONE (12:47)
[2019-07-18] MEDS ORDERED: fentaNYL (PF) 50 MCG/ML 2 ML AMP ONE (12:47)
[2019-07-18] MEDS ORDERED: EPINEPHrine (PF) 0.3 ML in BALANCED SALT IRRIG SOLN COMB2 500 ML IRRIGATION ONE (13:07)
[2019-07-18] MEDS ORDERED: TIMOLOL 0.5% OPHTH DROPS 5 ML BTL LEFT EYE ONE (13:09)
[2019-07-18] MEDS ORDERED: prednisoLONE ACETATE 1% OPHTH DROPS 5 ML BTL LEFT EYE ONE (13:09)
--- NOTE | 2019-07-18 13:42 | P.OP ---
Date of Procedure: 07/18/19 Preoperative Diagnosis: Cataract, significant, Left eye Postoperative Diagnosis: cataract, significant, left eye Procedure(s) Performed: Cataract extraction with IOL, Left eye Implants: intraocular MI60l 21.5D Anesthesia: local Surgeon: Fran Damon Estimated Blood Loss (ml): 0 Indications for Procedure: poor vision Description of Procedure: Patient was taken to the operating room. Patient and eye was confirmed. The left eye was prepped and drapped in the ussual sterile fashion. Lid speculum placed. paracentesis incision made and 1%lido injected. Viscoelastic injected and a Clear corneal incision made temporally. The capsularrhexis was formed and the lens removed using phaco. 21.5D lens placed in bag after the cortex was removed. The IA handpiece used to remove the remaining visco. Wounds checked - water tight. IOP favorable. The Patient was taken to recovery in stable condition. Prednisolone and cipro placed in eye. shield taped. Plan - Discharge Summary Discharge Rx Participant: Yes New Discharge Prescriptions: No Action Metoprolol Tartrate [Lopressor] 25 mg PO DAILY Furosemide [Lasix] 20 mg PO DAILY Magnesium 200 mg PO DAILY Spironolactone [Aldactone] 50 mg PO DAILY Folic Acid 1 mg PO DAILY Lactulose [Cephulac] 20 gm PO BID PRN PRN Reason: Mild Discomfort Discharge Medication List Furosemide [Lasix] 20 mg PO DAILY 03/09/19 [History] Magnesium 200 mg PO DAILY 03/09/19 [History] Metoprolol Tartrate [Lopressor] 25 mg PO DAILY 03/09/19 [History] Folic Acid 1 mg PO DAILY 05/15/19 [History] Spironolactone [Aldactone] 50 mg PO DAILY 05/15/19 [History] Lactulose [Cephulac] 20 gm PO BID PRN 07/13/19 [History] Patient Instructions/Handouts: *[facility] - Eye Surgery Discharge Instructions, *[facility] - (Anesthesia) Discharge Instructions Outpatient Surgery
[2019-07-18 13:59] VITALS: BP 104/59; PULSE 69
== END 2019-07-18 14:10 | disposition home or self-care (01) ==
LOC: OR 10:43
PROVIDERS: ATTEND Ophthalmology
DX: H25.12 Age-related nuclear cataract, left eye (principal); H30.04 Focal chorioretinal inflammation, macular or paramacular; I10 Essential (primary) hypertension; I34.1 Nonrheumatic mitral (valve) prolapse; R00.2 Palpitations; R56.9 Unspecified convulsions; K72.90 Hepatic failure, unspecified without coma; R18.8 Other ascites; Z79.899 Other long term (current) drug therapy; Z91.030 Bee allergy status; Z91.09 Other allergy status, other than to drugs and biological substances; Z90.710 Acquired absence of both cervix and uterus
CPT/HCPCS: 66984; V2632; J2250; J0171; J3010

== ENCOUNTER 2019-08-22 11:19 | Day surgery (SDC) | payer OTHER ==
[2019-08-20 11:59] VITALS: BMI 22.8
[~2019-08-22 11:19] MED LIST changes: +LIDOCAINE 1% (10MG/ML) FOR IV START INTRADERMA PRN; -LIDOCAINE 1% 20 ML VIAL (10MG/ML) FOR IV START INTRADERMA PRN; -TETRACAINE 0.5% OPHTH (PF) DROPS 4 ML BTL OP ONE
[2019-08-22 11:37] VITALS: TEMP 97.1
[2019-08-22] MEDS: TETRACAINE 0.5% OPHTH (PF) DROPS 4 ML BTL OP ONE ×2 (11:40→11:41)
[2019-08-22] MEDS: TROPICAMIDE 1% OPHTH DROPS 2 ML BTL OP SCH ×3 (11:43→11:51)
[2019-08-22] MEDS: PHENYLEPHRINE 2.5% OPHTH DRP 2ML OP SCH ×3 (11:44→11:51)
[2019-08-22] MEDS: CYCLOPENTOLATE 1% OPHTH SOLN 2 ML BTL OP SCH ×3 (11:46→11:52)
[2019-08-22] MEDS: CIPROFLOXACIN 0.3% OPHTH SOLN 5 ML BTL OP SCH ×4 (11:47→13:17)
[2019-08-22 11:58] LABS: Glucose,Whole Blood 99 mg/dL (75-99)
[2019-08-22] MEDS ORDERED: TIMOLOL 0.25% OPHTH DROPS 5 ML BTL RIGHT EYE SCH (12:00)
[2019-08-22] MEDS ORDERED: prednisoLONE ACETATE 1% OPHTH DROPS 5 ML BTL RIGHT EYE SCH (12:00)
[2019-08-22] MEDS ORDERED: TIMOLOL 0.5% OPHTH DROPS 5 ML BTL RIGHT EYE SCH (12:15)
[2019-08-22] MEDS ORDERED: MIDAZOLAM 2 MG/2 ML VIAL ONE (12:59)
[2019-08-22] MEDS ORDERED: fentaNYL (PF) 50 MCG/ML 2 ML AMP ONE (12:59)
[2019-08-22] MEDS ORDERED: DUOVISC KIT (BLUE BOX) INTRAOCULA ONE (13:16)
[2019-08-22] MEDS ORDERED: BALANCED SALT IRRIG SOLN COMB2 15 ML IRRIG.SOLN IRRIGATION ONE (13:16)
[2019-08-22] MEDS ORDERED: LIDOCAINE (PF) 10 MG/ML 5ML AMP SQ ONE (13:17)
[2019-08-22] MEDS ORDERED: EPINEPHrine (PF) 0.5 ML in BALANCED SALT IRRIG SOLN COMB2 500 ML IRRIGATION ONE (13:25)
--- NOTE | 2019-08-22 13:48 | P.OP ---
Date of Procedure: 08/22/19 Preoperative Diagnosis: Cataract, right eye Postoperative Diagnosis: Cataract, Right eye Procedure(s) Performed: Cataract extraction with IOL implant, Right eye Anesthesia: local Surgeon: Fran Damon Estimated Blood Loss (ml): 0 Pathology: none sent Condition: stable Disposition: same day Indications for Procedure: Poor vision, right eye Description of Procedure: Preoperative Diagnosis: Visually significant cataract, right eye Postoperative Diagnosis: Visually significant cataract, right eye Procedure(s) Performed: Cataract extraction with intraocular lens implant, right eye Implants: B+L MI60 Anesthesia: local Surgeon: Fran Damon Estimated Blood Loss (ml): 0 Condition: stable Description of Procedure: The patient was identified in the preoperative holding area and informed consent was obtained. The patient understood the risks benefits alternatives and indications of cataract surgery. Patient showed the different options including intraocular lens options. The right eye was verified with the patient the patient was taken to the operating room. Patient was given IV sedation from the anesthesia team. Anesthetic drops were placed in the operative eye. The right eye was prepped and draped in usual sterile ophthalmic fashion. A lid speculum was placed in the operative eye and the microscope was swung into position. A paracentesis incision was made superiorly in the right eye. Lidocaine was injected intracameral into the anterior chamber. Viscoelastic was injected into anterior chamber and a clear corneal incision was made temporally. A cystitome and Utrata forceps were used create a continuous curvilinear capsul orrhexis. Hydrodissection cannula was then used to hydrate and rotate the lens. Phaco was then carried out to divide the lens into 4 quadrants. Quadrants were removed using phaco emulsification. The irrigation-aspiration handpiece was then used to remove the cortex. Provisc was then used to inflate the capsular bag and the intraocular lens was placed in the bag without incident. The irrigation-aspiration handpiece was then used to remove the remaining viscoelastic. The wounds were checked and found to be watertight. The pressure was checked and found to be favorable. The speculum was then removed. One drop of pred acetate and one drop of brimonidine and one drop of ciprofloxacin were placed in the operative eye. A shield was taped over the eye and the patient was taken recovery in stable condition. Patient was given instructions for post op care. Plan - Discharge Summary Discharge Rx Participant: No New Discharge Prescriptions: No Action Furosemide [Lasix] 20 mg PO BID Magnesium 200 mg PO DAILY Spironolactone [Aldactone] 50 mg PO BID Folic Acid 1 mg PO DAILY Lactulose [Cephulac] 20 gm PO BID PRN PRN Reason: Mild Discomfort Discharge Medication List Furosemide [Lasix] 20 mg PO BID 03/09/19 [History] Magnesium 200 mg PO DAILY 03/09/19 [History] Folic Acid 1 mg PO DAILY 05/15/19 [History] Spironolactone [Aldactone] 50 mg PO BID 05/15/19 [History] Lactulose [Cephulac] 20 gm PO BID PRN 07/13/19 [History] Follow up Appointment(s)/Referral(s): Fran Damon MD [STAFF PHYSICIAN] - 08/23/19 8:00 am Patient Instructions/Handouts: *[facility] - (Anesthesia) Endoscopy Discharge Instructions, *[facility] - ([facility]) Eye Procedure Discharge Instructions
[2019-08-22 13:57] VITALS: BP 126/66; PULSE 76; RESP 18
== END 2019-08-22 14:08 | disposition home or self-care (01) ==
LOC: OR 11:19
PROVIDERS: ATTEND Ophthalmology
DX: H25.11 Age-related nuclear cataract, right eye (principal); Z91.09 Other allergy status, other than to drugs and biological substances; I10 Essential (primary) hypertension; R56.9 Unspecified convulsions; Z90.710 Acquired absence of both cervix and uterus; Z98.890 Other specified postprocedural states; Z79.899 Other long term (current) drug therapy
CPT/HCPCS: 66984; C1780; J2250; J0171; J2001; J3010

== ENCOUNTER 2019-11-08 08:06 | Observation (INO) | payer OTHER ==
--- NOTE | 2019-11-08 08:38 | ED ---
General Adult HPI - General Chief complaint: GI Bleed Stated complaint: spitting blood Time Seen by Provider: 11/08/19 08:17 Source: patient Mode of arrival: ambulatory Limitations: no limitations - History of Present Illness Initial comments: Dictation was produced using [employer] dictation software. please excuse any grammatical, word or spelling errors. This patient was cared for during a federal and state declared state of emergency secondary to Covid 19 Chief Complaint: 43-year-old female past medical history of esophageal varices presents with GI bleeding. History of Present Illness: The 43-year-old female she has past medical history of cirrhosis. On Tuesday patient had the upper endoscopy with intention tube and esophageal varices. During endoscopy patient was diagnosed with gastric antral vascular ectasia. Her GI doctor is Dr. Carlton from [facility]. She states that she will go this morning and spit up blood twice. States that the blood was gross. She is instructed to seek medical attention if she has bleeding. Denies any blood rectally. No melanotic stool. She does have some mild epigastric tenderness. She reports that she had a hemoglobin of 7.0 was diagnosed recently. She is worried that her hemoglobin was lower. The ROS documented in this emergency department record has been reviewed and confirmed by me. Those systems with pertinent positive or negative responses have been documented in the HPI. All other systems are other negative and/or noncontributory. PHYSICAL EXAM: General Impression: Alert and oriented x3, not in acute distress HEENT: Normocephalic atraumatic, extra-ocular movements intact, pupils equal and reactive to light bilaterally, mucous membranes moist. Cardiovascular: Heart regular rate and rhythm Chest: Able to complete full sentences, no retractions, no tachypnea Abdomen: abdomen soft, mild epigastric palpable tenderness, non-distended, no organomegaly Musculoskeletal: Pulses present and equal in all extremities, no peripheral edema Motor: no focal deficits noted Neurological: CN II-XII grossly intact, no focal motor or sensory deficits noted Skin: Intact with no visualized rashes Psych: Normal affect and mood ED course: 43-year-old female chief complaint of spitting up blood. She had endoscopy recently by her GI doctor on Tuesday. Vital signs upon arrival are within acceptable limits. She does have history of cirrhosis and esophageal varices. On Tuesday patient was told she had gastric antral vascular ectasia. Patient treated with Protonix. Patient is well-appearing at this time. She is not spitting up blood. At this point there is low clinical suspicion of catastrophic active GI bleed. Laboratory evaluation obtained. Hemoglobin is 9.0. Construct 59 likely secondary to splenic sequestration. Coag panel is unremarkable. Metabolic panel shows sodium 125. Potassium 5.7. There is non- anion gap acidosis. Serum alcohol is negative. At this point patient has concerning electrolyte derangement however she appears well at this time. Alcohol is negative. At this point is unclear what is causing patient's hyponatremia. Nonetheless patient is given intravenous fluids. Considering patient's risk factors with history of gastric ectasia and esophageal varices there is concern that patient's initial bleeding could represent a sentinel bleed. Recommended to patient that she be admitted for observation with consul tation to GI. Discussed patient case briefly with Dr. Francois who reports that patient can be accepted at our facility despite her primary GI doctor being at [facility]. Patient is agreeable. Patient is given Protonix. Discussed patient case with Dr. Isidro who is willing to accept patients care for her son physician group. - Related Data Home Medications Medication Instructions Recorded Confirmed Furosemide [Lasix] 20 mg PO BID 03/09/19 08/22/19 Magnesium 200 mg PO DAILY 03/09/19 08/22/19 Folic Acid 1 mg PO DAILY 05/15/19 08/22/19 Spironolactone [Aldactone] 50 mg PO BID 05/15/19 08/22/19 Lactulose [Cephulac] 20 gm PO BID PRN 07/13/19 08/22/19 Allergies Allergy/AdvReac Type Severity Reaction Status Date / Time adhesive tape Allergy Rash/Hives/ Verified 11/08/19 08:13 itching bee venom protein (honey bee) Allergy Swelling Verified 11/08/19 08:13 Review of Systems ROS Statement: Those systems with pertinent positive or pertinent negative responses have been documented in the HPI. ROS Other: All systems not noted in ROS Statement are negative. Past Medical History Past Medical History: Eye Disorder, Liver Disease, Mitral Valve Prolapse (MVP) Additional Past Medical History / Comment(s): right cataract, Hx. of seizures related to alcohol withdrawal, hx. of Ascites r/t cirrhosis of the liver, retinal damage r/t head trauma. Hepatic encephalopathy. takes diuretics for cirrhosis History of Any Multi-Drug Resistant Organisms: MRSA Date of last positivie culture/infection: 2003 MDRO Source:: LT ELBOW Past Surgical History: Hysterectomy, Orthopedic Surgery, Tubal Ligation Additional Past Surgical History / Comment(s): left cataract and lens, 07/18/19, plate to right lower arm, wisdom teeth, samantha in right upper arm Past Anesthesia/Blood Transfusion Reactions: No Reported Reaction Past Psychological History: Anxiety Smoking Status: Current some day smoker Past Alcohol Use History: None Reported Past Drug Use History: None Reported - Past Family History Mother Family Medical History: Unable to Obtain Father Family Medical History: Unable to Obtain General Exam Limitations: no limitations Course Vital Signs 11/08/19 08:09 Temperature 98.0 F Pulse Rate 95 Respiratory 18 Rate Blood Pressure 138/73 O2 Sat by Pulse 98 Oximetry Medical Decision Making - Lab Data Result diagrams: 11/08/19 08:50 11/08/19 08:50 Lab Results 11/08/19 11/08/19 11/08/19 Range/Units 08:45 08:50 08:50 WBC 6.7 (3.8-10.6) k/uL RBC 3.18 L (3.80-5.40) m/uL Hgb 9.0 L (11.4-16.0) gm/dL Hct 28.3 L (34.0-46.0) % MCV 89.0 (80.0-100.0) fL MCH 28.4 (25.0-35.0) pg MCHC 31.9 (31.0-37.0) g/dL RDW 18.8 H (11.5-15.5) % Plt Count 59 L (150-450) k/uL Neutrophils % 75 % Lymphocytes % 14 % Monocytes % 8 % Eosinophils % 1 % Basophils % 0 % Neutrophils # 5.0 (1.3-7.7) k/uL Lymphocytes # 0.9 L (1.0-4.8) k/uL Monocytes # 0.5 (0-1.0) k/uL Eosinophils # 0.0 (0-0.7) k/uL Basophils # 0.0 (0-0.2) k/uL Manual Slide Review Performed Hypochromasia Marked Poikilocytosis Slight Anisocytosis Slight PT (9.0-12.0) sec INR (<1.2) APTT (22.0-30.0) sec Sodium (137-145) mmol/L Potassium (3.5-5.1) mmol/L Chloride (98-107) mmol/L Carbon Dioxide (22-30) mmol/L Anion Gap mmol/L BUN (7-17) mg/dL Creatinine (0.52-1.04) mg/dL Est GFR (CKD-EPI)AfAm (>60 ml/min/1.73 sqM) Est GFR (CKD-EPI)NonAf (>60 ml/min/1.73 sqM) Glucose (74-99) mg/dL Plasma Lactic Acid Davy (0.7-2.0) mmol/L Calcium (8.4-10.2) mg/dL Total Bilirubin (0.2-1.3) mg/dL AST (14-36) U/L ALT (4-34) U/L Alkaline Phosphatase (38-126) U/L Total Protein (6.3-8.2) g/dL Albumin (3.5-5.0) g/dL Serum Alcohol mg/dL Blood Type O Positive Blood Type Confirm O Positive Blood Type Recheck No Previous Record Bld Type Recheck Status CABO Indicated Antibody Screen NEGATIVE Spec Expiration Date 11/11/2019 - 234911/08/19 11/08/19 11/08/19 Range/Units 08:50 08:50 08:50 WBC (3.8-10.6) k/uL RBC (3.80-5.40) m/uL Hgb (11.4-16.0) gm/dL Hct (34.0-46.0) % MCV (80.0-100.0) fL MCH (25.0-35.0) pg MCHC (31.0-37.0) g/dL RDW (11.5-15.5) % Plt Count (150-450) k/uL Neutrophils % % Lymphocytes % % Monocytes % % Eosinophils % % Basophils % % Neutrophils # (1.3-7.7) k/uL Lymphocytes # (1.0-4.8) k/uL Monocytes # (0-1.0) k/uL Eosinophils # (0-0.7) k/uL Basophils # (0-0.2) k/uL Manual Slide Review Hypochromasia Poikilocytosis Anisocytosis PT 13.5 H (9.0-12.0) sec INR 1.4 H (<1.2) APTT 27.7 (22.0-30.0) sec Sodium 125 L (137-145) mmol/L Potassium 5.7 H (3.5-5.1) mmol/L Chloride 102 (98-107) mmol/L Carbon Dioxide 15 L (22-30) mmol/L Anion Gap 8 mmol/L BUN 24 H (7-17) mg/dL Creatinine 0.60 (0.52-1.04) mg/dL Est GFR (CKD-EPI)AfAm >90 (>60 ml/min/1.73 sqM) Est GFR (CKD-EPI)NonAf >90 (>60 ml/min/1.73 sqM) Glucose 100 H (74-99) mg/dL Plasma Lactic Acid Davy 0.8 (0.7-2.0) mmol/L Calcium 8.8 (8.4-10.2) mg/dL Total Bilirubin 2.2 H (0.2-1.3) mg/dL AST 58 H (14-36) U/L ALT 40 H (4-34) U/L Alkaline Phosphatase 293 H (38-126) U/L Total Protein 7.5 (6.3-8.2) g/dL Albumin 3.4 L (3.5-5.0) g/dL Serum Alcohol mg/dL Blood Type Blood Type Confirm Blood Type Recheck Bld Type Recheck Status Antibody Screen Spec Expiration Date 11/08/19 Range/Units 09:30 WBC (3.8-10.6) k/uL RBC (3.80-5.40) m/uL Hgb (11.4-16.0) gm/dL Hct (34.0-46.0) % MCV (80.0-100.0) fL MCH (25.0-35.0) pg MCHC (31.0-37.0) g/dL RDW (11.5-15.5) % Plt Count (150-450) k/uL Neutrophils % % Lymphocytes % % Monocytes % % Eosinophils % % Basophils % % Neutrophils # (1.3-7.7) k/uL Lymphocytes # (1.0-4.8) k/uL Monocytes # (0-1.0) k/uL Eosinophils # (0-0.7) k/uL Basophils # (0-0.2) k/uL Manual Slide Review Hypochromasia Poikilocytosis Anisocytosis PT (9.0-12.0) sec INR (<1.2) APTT (22.0-30.0) sec Sodium (137-145) mmol/L Potassium (3.5-5.1) mmol/L Chloride (98-107) mmol/L Carbon Dioxide (22-30) mmol/L Anion Gap mmol/L BUN (7-17) mg/dL Creatinine (0.52-1.04) mg/dL Est GFR (CKD-EPI)AfAm (>60 ml/min/1.73 sqM) Est GFR (CKD-EPI)NonAf (>60 ml/min/1.73 sqM) Glucose (74-99) mg/dL Plasma Lactic Acid Davy (0.7-2.0) mmol/L Calcium (8.4-10.2) mg/dL Total Bilirubin (0.2-1.3) mg/dL AST (14-36) U/L ALT (4-34) U/L Alkaline Phosphatase (38-126) U/L Total Protein (6.3-8.2) g/dL Albumin (3.5-5.0) g/dL Serum Alcohol <10 mg/dL Blood Type Blood Type Confirm Blood Type Recheck Bld Type Recheck Status Antibody Screen Spec Expiration Date Disposition Clinical Impression: GI bleed Disposition: ADMITTED IP TO THIS [facility] Condition: Fair Referrals: Alexsandra Cam MD [Primary Care Provider] - 1-2 days Decision Time: 11:02
[2019-11-08] MEDS ORDERED: PANTOPRAZOLE 40 MG/10 ML VIAL IVP ONE (09:05)
[2019-11-08 09:15] LABS: ALT 40 U/L (4-34); AST 58 U/L (14-36); African American GFR (CKD) >90 (>60 ml/min/1.73 sqM); Albumin 3.4 g/dL (3.5-5.0); Alkaline Phosphatase 293 U/L (38-126); Anion Gap 8 mmol/L; Blood Urea Nitrogen 24 mg/dL (7-17); Calcium 8.8 mg/dL (8.4-10.2); Carbon Dioxide 15 mmol/L (22-30); Chloride 102 mmol/L (98-107); Glucose 100 mg/dL (74-99); Non-African American GFR(CKD) >90 (>60 ml/min/1.73 sqM); Potassium 5.7 mmol/L (3.5-5.1); Sodium 125 mmol/L (137-145); Total Bilirubin 2.2 mg/dL (0.2-1.3); Total Protein 7.5 g/dL (6.3-8.2)
[2019-11-08] MEDS ORDERED: SODIUM CHLORIDE 0.9% 1,000 ML IV STA (09:18)
[2019-11-08 09:31] LABS: Anisocytosis Slight; Basophils % (A) 0 %; Eosinophils % (A) 1 %; HCT 28.3 % (34.0-46.0); Hypochromasia Marked; INR 1.4 (<1.2); Lymphocytes # (A) 0.9 k/uL (1.0-4.8); Lymphocytes % (A) 14 %; MCH 28.4 pg (25.0-35.0); MCHC 31.9 g/dL (31.0-37.0); Mean Platelet Volume 11.1; Monocytes # (A) 0.5 k/uL (0-1.0); Monocytes % (A) 8 %; Neutrophils % (A) 75 %; Partial Thromboplastin Time 27.7 sec (22.0-30.0); Poikilocytosis Slight; Prothrombin Time 13.5 sec (9.0-12.0); RBC 3.18 m/uL (3.80-5.40); RDW 18.8 % (11.5-15.5); WBC 6.7 k/uL (3.8-10.6)
[2019-11-08 09:43] LABS: Platelet Count 59 k/uL (150-450)
[2019-11-08] MEDS ORDERED: NALOXONE 0.4 MG/ML 1 ML VIAL IV PRN (10:56)
[2019-11-08] MEDS: SODIUM CHLORIDE 0.9% 1,000 ML IV SCH ×2 (12:03→19:56)
[2019-11-08] MEDS: MORPHINE SULFATE 4 MG/ML SYRINGE IVP PRN ×5 (12:04→23:48)
--- NOTE | 2019-11-08 14:41 | P.HPIM ---
History of Present Illness H&P Date: 11/08/19 Chief Complaint: coughing up blood The patient 43 y.o female with a history of alcoholic cirrhosis. Patient is really status post endoscopy on Tuesday and no intervention was done. Patient states that she went this morning was the feeling that she was having some increased phlegm. Patient stated Winch she expectorated she noticed that this was blood. Patient became concerned so she came to the emergency room for evaluation. Patient states that she was diagnosed with gastro-antral vascular ectasia Maritza her endoscopy. Patient denied any melanotic stools. Patient and denied any nausea or vomiting she had some mild abdominal tenderness. In the emergency room patient was noted to have a hemoglobin of 9.0, a potassium of 5.7, sodium 127, patient denied any recent alcohol use. On initial evaluation patient on temperature 98.0, a pulse of 95, respiratory rate of 18, blood pressure 138/73 patient was determined to need further monitoring so she was hospitalized for further workup and management Review of systems: Complete review of systems done and negative other than as stated above Past Medical History Past Medical History: Eye Disorder, Liver Disease, Mitral Valve Prolapse (MVP) Additional Past Medical History / Comment(s): right cataract, Hx. of seizures related to alcohol withdrawal, hx. of Ascites r/t cirrhosis of the liver, retinal damage r/t head trauma. Hepatic encephalopathy. takes diuretics for cirrhosis, hernia surgery History of Any Multi-Drug Resistant Organisms: MRSA Date of last positivie culture/infection: 2003 MDRO Source:: LT ELBOW Past Surgical History: Hysterectomy, Orthopedic Surgery, Tubal Ligation Additional Past Surgical History / Comment(s): left cataract and lens, 07/18/19, plate to right lower arm, wisdom teeth, samantha in right upper arm Past Anesthesia/Blood Transfusion Reactions: No Reported Reaction Past Psychological History: Anxiety Smoking Status: Light tobacco smoker Past Alcohol Use History: None Reported Additional Past Alcohol Use History / Comment(s): SMOKES < 1/2 PPD FOR 20 + YEARS, quit drinking January 2019 Past Drug Use History: None Reported - Past Family History Mother Family Medical History: Unable to Obtain Father Family Medical History: Unable to Obtain Medications and Allergies Home Medications Medication Instructions Recorded Confirmed Type Magnesium 200 mg PO BID 03/09/19 11/08/19 History Folic Acid 1 mg PO DAILY 05/15/19 11/08/19 History Lactulose [Cephulac] 20 gm PO BID PRN 07/13/19 11/08/19 History Furosemide [Lasix] 40 mg PO DAILY 11/08/19 11/08/19 History Omeprazole 20 mg PO DAILY 11/08/19 11/08/19 History Spironolactone [Aldactone] 100 mg PO DAILY 11/08/19 11/08/19 History Allergies Allergy/AdvReac Type Severity Reaction Status Date / Time adhesive tape Allergy Rash/Hives/ Verified 11/08/19 11:26 itching bee venom protein (honey bee) Allergy Swelling Verified 11/08/19 11:26 latex Allergy Rash/Hives Verified 11/08/19 11:26 Physical Exam Vitals: Vital Signs Temp Pulse Pulse Resp BP BP Pulse Ox 11/08/19 11:40 98.3 F 79 16 128/71 99 11/08/19 11:24 87 18 118/47 100 11/08/19 10:30 81 14 138/66 100 11/08/19 10:00 79 18 127/59 100 11/08/19 09:30 79 16 135/55 100 11/08/19 08:09 98.0 F 95 18 138/73 98 Intake and Output 11/07/19 11/08/19 11/08/19 22:59 06:59 14:59 Other: Weight 57.606 kg Results CBC & Chem 7: 11/08/19 08:50 11/08/19 08:50 Labs: Abnormal Lab Results - Last 24 Hours (Table) 11/08/19 11/08/19 11/08/19 Range/Units 08:50 08:50 08:50 RBC 3.18 L (3.80-5.40) m/uL Hgb 9.0 L (11.4-16.0) gm/dL Hct 28.3 L (34.0-46.0) % RDW 18.8 H (11.5-15.5) % Plt Count 59 L (150-450) k/uL Lymphocytes # 0.9 L (1.0-4.8) k/uL PT 13.5 H (9.0-12.0) sec INR 1.4 H (<1.2) Sodium 125 L (137-145) mmol/L Potassium 5.7 H (3.5-5.1) mmol/L Carbon Dioxide 15 L (22-30) mmol/L BUN 24 H (7-17) mg/dL Glucose 100 H (74-99) mg/dL Total Bilirubin 2.2 H (0.2-1.3) mg/dL AST 58 H (14-36) U/L ALT 40 H (4-34) U/L Alkaline Phosphatase 293 H (38-126) U/L Albumin 3.4 L (3.5-5.0) g/dL Thrombosis Risk Factor Assmnt - DVT/VTE Prophylaxis DVT/VTE Prophylaxis: Contraindicated - See note ( bleeding thrombocytopenia) - Choose All That Apply Any of the Below Risk Factors Present?: Yes Each Factor Represents 1 point: Age 41-60 years Other Risk Factors: No Other congenital or acquired thrombophilia - If yes, enter type in comment: No Thrombosis Risk Factor Assessment Total Risk Factor Score: 1 Thrombosis Risk Factor Assessment Level: Low Risk Assessment and Plan (1) GI bleed Narrative/Plan: Patient with cirrhosis and recent endoscopy; now with new bleeding, emergency room noted to have a hemoglobin of 9, pt states her baseline is 7. We'll monitor hemoglobin, appreciate GI input, clear liquid diet per GI, Current Visit: Yes Status: Acute Code(s): K92.2 - GASTROINTESTINAL HEMORRHAGE, UNSPECIFIED SNOMED Code(s): 69691227 (2) Ascites due to alcoholic cirrhosis Narrative/Plan: no need for paracentesis at this time Current Visit: No Status: Acute Code(s): K70.31 - ALCOHOLIC CIRRHOSIS OF LIVER WITH ASCITES SNOMED Code(s): 4175676435687493 (3) Abdominal pain Current Visit: No Status: Acute Code(s): R10.9 - UNSPECIFIED ABDOMINAL PAIN SNOMED Code(s): 39544278 (4) Drug-induced hyperkalemia Narrative/Plan: Secondary to Aldactone, will hold the Aldactone Current Visit: Yes Status: Acute Code(s): E87.5 - HYPERKALEMIA; T50.905A - ADVERSE EFFECT OF UNSP DRUG/MEDS/BIOL SUBST, INIT SNOMED Code(s): 247694145 (5) Hyponatremia Narrative/Plan: secondary to cirrhosis Current Visit: Yes Status: Acute Code(s): E87.1 - HYPO-OSMOLALITY AND HYPONATREMIA SNOMED Code(s): 34397647
[2019-11-08] MEDS ORDERED: LACTULOSE 20 GM/30 ML CUP PO PRN (14:42)
[2019-11-08] MEDS ORDERED: NON FORMULARY DRUG (Omeprazole [Omeprazole] 20 MG) PO SCH (14:45)
[2019-11-08] MEDS: FUROSEMIDE 40 MG TAB PO SCH (15:26)
[2019-11-08] MEDS: FOLIC ACID 1 MG TAB PO SCH (15:26)
[2019-11-08 18:46] LABS: Anisocytosis Slight; Basophils % (A) 0 %; Eosinophils # (A) 0.1 k/uL (0-0.7); Eosinophils % (A) 1 %; HCT 27.3 % (34.0-46.0); HGB 8.3 gm/dL (11.4-16.0); Hypochromasia Marked; Lymphocytes # (A) 0.8 k/uL (1.0-4.8); Lymphocytes % (A) 16 %; MCH 27.6 pg (25.0-35.0); MCHC 30.3 g/dL (31.0-37.0); MCV 91.1 fL (80.0-100.0); Mean Platelet Volume 9.7; Monocytes # (A) 0.4 k/uL (0-1.0); Monocytes % (A) 8 %; Neutrophils # (A) 3.9 k/uL (1.3-7.7); Neutrophils % (A) 73 %; RDW 18.4 % (11.5-15.5); WBC 5.3 k/uL (3.8-10.6)
[2019-11-08 19:06] LABS: Platelet Count 59 k/uL (150-450)
--- NOTE | 2019-11-08 23:58 | CONS ---
CONSULTATION DATE OF DICTATION: November 08, 2019. REASON FOR CONSULTATION: Acute GI bleed. HISTORY OF PRESENT ILLNESS: The patient is a 43-year-old white female with history of alcoholic cirrhosis of the liver diagnosed a few years ago, follows with Dr. Carlton at [facility]. She had prior history of esophageal varices for which she underwent an upper endoscopy 3 days ago at [facility] by Dr. Carlton and was diagnosed with gastric antral vascular ectasia and small esophageal varices. She recalls having esophageal variceal ligation in the past. The patient went home and yesterday she started spitting up some blood. She had 2 episodes of small amount of clots when she spit up blood. She became very concerned, came to the emergency room here and subsequently admitted to the hospital for further evaluation. She denies any nausea, vomiting. She reports no abdominal pain. No rectal bleeding or melena. Her hemoglobin at the time of admission to the hospital was 9 g/dL. PAST MEDICAL HISTORY: Significant for alcoholic cirrhosis of the liver, hypertension, gastroesophageal reflux disease, ascites and hepatic encephalopathy. PAST SURGICAL HISTORY: Hysterectomy, tubal ligation, left cataract surgery. MEDICATIONS AT HOME: Magnesium, Aldactone, Cephulac, folic acid, omeprazole, and Lasix. ALLERGIES: ADHESIVE TAPE, HONEY BEE and LATEX. No known drug allergies. SOCIAL HISTORY: No smoking history. Remote history of alcohol use. She quit drinking in January of last year. FAMILY HISTORY: Unremarkable. REVIEW OF SYSTEMS: CARDIOPULMONARY: No chest pain or shortness of breath GENITOURINARY: No dysuria or hematuria. MUSCULOSKELETAL: Unremarkable. SKIN: Unremarkable. ENDOCRINE: Unremarkable. PSYCHIATRIC: Unremarkable. NEUROLOGY: Unremarkable. ENT/VISION: Unremarkable. CONSTITUTIONAL: No recent weight loss. No fever, chills, night sweats. PHYSICAL EXAMINATION: On examination, she appears comfortable, in no apparent distress. Vital signs are stable. Blood pressure 110/56, pulse rate 85 per minute and afebrile. HEENT EXAMINATION: Unremarkable. Conjunctivae pink. Sclerae anicteric. Oral cavity no lesions. NECK: No JVD or lymph node enlargement. CHEST: Clear to auscultation. HEART: Regular rate and rhythm. ABDOMEN: Soft. Bowel sounds are positive. No organomegaly. EXTREMITIES: No pedal edema. SKIN: No rashes. NEUROLOGIC: Alert and oriented x3. No focal deficits. LABS: Labs done today at the time of admission to the hospital: WBC 6.7, hemoglobin 9, platelets 59,000. INR 1.4. AST and ALT are 58 and 40, respectively, T-bilirubin 2.2, alkaline phosphatase 293. Serum alcohol level less than 10. Sodium was 125, potassium 5.7, BUN 24, creatinine 0.60. IMPRESSION: 1. History of alcoholic cirrhosis of the liver with portal hypertension. 2. Questionable gastrointestinal bleed. The patient was spitting up small amount of blood with clots yesterday. She had an upper endoscopy done at [facility] by Dr. Carlton 3 days ago and according to her, she was diagnosed with gastric antral vascular ectasia and small esophageal varices. Clinically no evidence of active upper gastrointestinal bleed. Hemoglobin is at 9 g/dL. As per the patient, 3 days ago, hemoglobin was 7.5 g/dL. 3. Mild coagulopathy secondary to chronic liver disease. 4. Elevated LFTs with mild jaundice, all consistent with chronic liver disease with alcoholic cirrhosis of the liver. 5. History of hepatic encephalopathy. 6. History of ascites in the past, maintained on diuretics. RECOMMENDATIONS: 1. Clear liquid diet. 2. Continue Protonix 40 mg twice daily. 3. Monitor CBC on a daily basis. 4. Obtain records of recent upper endoscopy done at [facility]. 5. No plans for any endoscopic intervention at this time. We will continue to follow her closely. Thank you for this consultation. MMRODRÍGUEZL / SIMONEN: [id number] /
[2019-11-09] MEDS ORDERED: ONDANSETRON 4 MG/2 ML VIAL IVP PRN (04:14)
[2019-11-09] MEDS: MORPHINE SULFATE 4 MG/ML SYRINGE IVP PRN (06:08)
[2019-11-09] MEDS: PANTOPRAZOLE 40 MG/10 ML VIAL IV SCH (08:34)
[2019-11-09] MEDS: FUROSEMIDE 40 MG TAB PO SCH (08:34)
[2019-11-09] MEDS: MAGNESIUM OXIDE 400 MG TAB PO SCH (08:34)
[2019-11-09] MEDS: FOLIC ACID 1 MG TAB PO SCH (08:34)
[2019-11-09] MEDS: HYDROcodone/APAP 5-325MG 1 EACH TAB PO PRN ×2 (10:07→16:09)
[2019-11-09 10:29] LABS: Anisocytosis Slight; Basophils % (A) 0 %; Eosinophils # (A) 0.1 k/uL (0-0.7); Eosinophils % (A) 1 %; HCT 26.5 % (34.0-46.0); HGB 7.9 gm/dL (11.4-16.0); Hypochromasia Marked; Lymphocytes % (A) 19 %; MCH 26.9 pg (25.0-35.0); MCHC 29.9 g/dL (31.0-37.0); MCV 89.8 fL (80.0-100.0); Mean Platelet Volume 9.9; Monocytes # (A) 0.6 k/uL (0-1.0); Monocytes % (A) 12 %; Neutrophils # (A) 3.7 k/uL (1.3-7.7); Neutrophils % (A) 67 %; RBC 2.95 m/uL (3.80-5.40); RDW 18.5 % (11.5-15.5); WBC 5.5 k/uL (3.8-10.6)
[2019-11-09 10:42] LABS: ALT 41 U/L (4-34); AST 57 U/L (14-36); African American GFR (CKD) >90 (>60 ml/min/1.73 sqM); Albumin 3.3 g/dL (3.5-5.0); Alkaline Phosphatase 145 U/L (38-126); Anion Gap 8 mmol/L; Blood Urea Nitrogen 16 mg/dL (7-17); Calcium 8.9 mg/dL (8.4-10.2); Carbon Dioxide 15 mmol/L (22-30); Chloride 101 mmol/L (98-107); Glucose 111 mg/dL (74-99); Non-African American GFR(CKD) >90 (>60 ml/min/1.73 sqM); Sodium 124 mmol/L (137-145); Total Bilirubin 3.1 mg/dL (0.2-1.3); Total Protein 7.3 g/dL (6.3-8.2)
[2019-11-09 10:50] LABS: Potassium 6.5 mmol/L (3.5-5.1)
[2019-11-09] MEDS ORDERED: SODIUM POLYSTYRENE SULFONATE 15 GM/60 ML BOTTLE PO STA (11:01)
[2019-11-09] MEDS ORDERED: INSULIN REGULAR 100 UNIT/ML VIAL IV ONE (11:15)
[2019-11-09] MEDS ORDERED: CALCIUM GLUCONATE 1 GM in SODIUM CHLORIDE 0.9% 100 ML IVPB ONE (11:30)
[2019-11-09 12:06] LABS: Platelet Count 71 k/uL (150-450)
[2019-11-09] MEDS: SODIUM CHLORIDE 0.9% 1,000 ML IV SCH (13:25)
--- NOTE | 2019-11-09 15:26 | PN ---
PROGRESS NOTE DATE OF DICTATION: 11/09/2019 The patient is a 43-year-old pleasant white female admitted to the hospital with spitting up some blood. She has history of alcoholic cirrhosis of the liver and had an upper endoscopy done 3 days ago at [facility] and was noted to have small esophageal varices, gastric antral vascular ectasia and mild gastritis. Patient since being in the hospital is doing well. She did not have any further episodes of nausea or vomiting. Today she was noted to have hyperkalemia and she was transferred to selective unit. She denies any symptoms. PHYSICAL EXAMINATION: Appears comfortable. VITAL SIGNS: Stable. Blood pressure 164/75, pulse rate 78, temperature 98.9. HEENT examination unremarkable. Conjunctivae pink. Sclerae anicteric. Oral cavity no lesions. NECK: No JVD or lymph node enlargement. CHEST: Clear to auscultation. HEART: Regular rate and rhythm. ABDOMEN: Soft. It was non-tender, non-distended. Bowel sounds are positive. No organomegaly. EXTREMITIES: No pedal edema. NEUROLOGIC: She is alert and oriented x3. No focal deficits. LABS: Labs from today show WBC 5.5, hemoglobin 7.9, platelets 71,000. Sodium 124, potassium 6.5. T-bilirubin and alkaline phosphatase are 3.1 and 145. AST and ALT are 557 and 41. BUN and creatinine are within normal limits. IMPRESSION: 1. Alcoholic cirrhosis of the liver with gradual decompensation. 2. History of small esophageal varices, status post esophagogastroduodenoscopy 3 days ago at [facility] that showed small esophageal varices. 3. History of gastric antral vascular ectasia. 4. Mild coagulopathy secondary to underlying chronic liver disease. 5. Mild anemia, but hemoglobin remains stable. Clinically does not have any evidence of active ongoing bleeding since being in the hospital. 6. Hyperkalemia and hyponatremia secondary to underlying liver disease and worsened because of Aldactone that she is receiving for ascites. RECOMMENDATIONS: 1. Hold Aldactone. 2. Treat hyperkalemia. 3. Monitor CBC on a daily basis. 4. Continue all her other medications. 5. No need for any endoscopic intervention at the present time. Will follow with you closely. Thank you for this consultation. MMODL / IJN: [id number] /
[2019-11-09] MEDS ORDERED: DEXTROSE 50% SYRINGE 50 ML IVP STA (15:48)
[2019-11-09] MEDS: DEXTROSE 50% SYRINGE 50 ML IVP STA ×2 (15:54→15:55)
[2019-11-09 16:03] LABS: Glucose,Whole Blood 134 mg/dL (75-99)
[2019-11-09 16:17] LABS: Glucose,Whole Blood 286 mg/dL (75-99)
[2019-11-09 16:39] LABS: Glucose,Whole Blood 205 mg/dL (75-99)
--- NOTE | 2019-11-09 18:08 | P.PN ---
Subjective Progress Note Date: 11/09/19 Principal diagnosis: Hematemesis Patient was seen and examined. No acute events overnight. Patient reports no more vomiting. She denies any nausea. No abdominal discomfort. She denies any chest pain, shortness breath or palpitations. Asking for regular food. Objective - Vital Signs Vital signs: Vital Signs Temp 99 F 11/09/19 15:00 Pulse 92 11/09/19 15:00 Resp 18 11/09/19 15:00 BP 171/74 11/09/19 15:00 Pulse Ox 99 11/09/19 15:00 Intake & Output 11/08/19 11/09/19 11/09/19 18:59 06:59 18:59 Intake Total 540 1120 Output Total 2 0 Balance 540 1118 0 Weight 57.606 kg Intake: Intake, IV Titration 320 Amount Sodium Chloride 0.9% 1, 320 000 ml @ 90 mls/hr IV . Q11H7M FREDIS Rx#:[id number] Oral 540 800 Output: Urine 0 Emesis 2 Other: Voiding Method Toilet # Voids 2 3 1 - Exam General: [non toxic], [no distress], [appears at stated age] Derm: [warm], [dry] Head: [atraumatic], [normocephalic], [symmetric] Eyes: [EOMI], [no lid lag], [mildly jaundiced sclera] Mouth: [no lip lesion], [mucus membranes moist] Cardiovascular: [S1S2 reg], [tachycardic], [positive DP pulse bilateral], Lungs: [CTA bilateral], [no rhonchi, no rales] , [no accessory muscle use] Abdominal: [soft and distended], [ nontender to palpation], [no guarding], [no appreciable organomegaly] Ext: [no gross muscle atrophy], [no edema], [no contractures] Neuro: [ CN II-XI grossly intact], [no focal neuro deficits] Psych: [Alert], [oriented], [appropriate affect] - Labs CBC & Chem 7: 11/09/19 09:12 11/09/19 14:56 Labs: Abnormal Lab Results - Last 24 Hours (Table) 11/08/19 11/09/19 11/09/19 Range/Units 18:26 09:12 09:12 RBC 3.00 L 2.95 L (3.80-5.40) m/uL Hgb 8.3 L 7.9 L (11.4-16.0) gm/dL Hct 27.3 L 26.5 L (34.0-46.0) % MCHC 30.3 L 29.9 L (31.0-37.0) g/dL RDW 18.4 H 18.5 H (11.5-15.5) % Plt Count 59 L 71 L (150-450) k/uL Lymphocytes # 0.8 L (1.0-4.8) k/uL Sodium 124 L (137-145) mmol/L Potassium 6.5 H* (3.5-5.1) mmol/L Carbon Dioxide 15 L (22-30) mmol/L Glucose 111 H (74-99) mg/dL POC Glucose (mg/dL) (75-99) mg/dL Total Bilirubin 3.1 H (0.2-1.3) mg/dL AST 57 H (14-36) U/L ALT 41 H (4-34) U/L Alkaline Phosphatase 145 H (38-126) U/L Albumin 3.3 L (3.5-5.0) g/dL 11/09/19 11/09/19 11/09/19 Range/Units 14:56 16:02 16:15 RBC (3.80-5.40) m/uL Hgb (11.4-16.0) gm/dL Hct (34.0-46.0) % MCHC (31.0-37.0) g/dL RDW (11.5-15.5) % Plt Count (150-450) k/uL Lymphocytes # (1.0-4.8) k/uL Sodium (137-145) mmol/L Potassium 5.9 H (3.5-5.1) mmol/L Carbon Dioxide (22-30) mmol/L Glucose (74-99) mg/dL POC Glucose (mg/dL) 134 H 286 H (75-99) mg/dL Total Bilirubin (0.2-1.3) mg/dL AST (14-36) U/L ALT (4-34) U/L Alkaline Phosphatase (38-126) U/L Albumin (3.5-5.0) g/dL 05/22/20 Range/Units 16:37 RBC (3.80-5.40) m/uL Hgb (11.4-16.0) gm/dL Hct (34.0-46.0) % MCHC (31.0-37.0) g/dL RDW (11.5-15.5) % Plt Count (150-450) k/uL Lymphocytes # (1.0-4.8) k/uL Sodium (137-145) mmol/L Potassium (3.5-5.1) mmol/L Carbon Dioxide (22-30) mmol/L Glucose (74-99) mg/dL POC Glucose (mg/dL) 205 H (75-99) mg/dL Total Bilirubin (0.2-1.3) mg/dL AST (14-36) U/L ALT (4-34) U/L Alkaline Phosphatase (38-126) U/L Albumin (3.5-5.0) g/dL Assessment and Plan Assessment: Hyperkalemia Hematemesis Alcoholic cirrhosis Hyponatremia Her potassium this morning was 6.5. D50 with 10 units of IV insulin, Kayexalate was ordered. Repeat potassium 5.9. Plans to recheck potassium at 6 PM. Repeat D50 with 10 units of insulin IV if potassium continues to be elevated. This was discussed with nursing. Patient has history of esophageal varices. Her hemoglobin has been steady, slowly decreasing from 8.3 yesterday to 7.9 this morning. Her diet will be advanced from clear liquid diet to regular diet. Gastroenterology is following the patient. She will be continued on Protonix 40 mg IV daily. Continue lactulose, Lasix for alcoholic cirrhosis. 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 This is likely chronic. Plans to repeat BMP tomorrow morning. [Patient admitted for hematemesis with history of alcoholic cirrhosis and esophageal varices. No more vomiting or hematemesis. Currently on regular diet. GI is following. She is being monitored for her electrolyte derangements, especially potassium. Anticipate DC in 1-2 days.]
[2019-11-10] MEDS: HYDROcodone/APAP 5-325MG 1 EACH TAB PO PRN ×2 (03:01→09:14)
[2019-11-10 07:42] LABS: African American GFR (CKD) >90 (>60 ml/min/1.73 sqM); Anion Gap 8 mmol/L; Blood Urea Nitrogen 18 mg/dL (7-17); Calcium 8.3 mg/dL (8.4-10.2); Carbon Dioxide 17 mmol/L (22-30); Chloride 102 mmol/L (98-107); Glucose 122 mg/dL (74-99); Non-African American GFR(CKD) >90 (>60 ml/min/1.73 sqM); Potassium 5.1 mmol/L (3.5-5.1); Sodium 127 mmol/L (137-145)
[2019-11-10 08:03] LABS: Anisocytosis Slight; Basophils % (A) 0 %; Eosinophils # (A) 0.1 k/uL (0-0.7); Eosinophils % (A) 2 %; HCT 23.6 % (34.0-46.0); HGB 7.2 gm/dL (11.4-16.0); Hypochromasia Marked; Lymphocytes % (A) 17 %; MCH 27.5 pg (25.0-35.0); MCHC 30.6 g/dL (31.0-37.0); MCV 90.2 fL (80.0-100.0); Mean Platelet Volume 9.4; Monocytes % (A) 17 %; Neutrophils # (A) 3.5 k/uL (1.3-7.7); Neutrophils % (A) 60 %; Poikilocytosis Slight; RBC 2.61 m/uL (3.80-5.40); RDW 18.3 % (11.5-15.5); WBC 5.8 k/uL (3.8-10.6)
[2019-11-10 08:05] LABS: Platelet Count 60 k/uL (150-450)
[2019-11-10] MEDS: MAGNESIUM OXIDE 400 MG TAB PO SCH (09:10)
[2019-11-10] MEDS: FOLIC ACID 1 MG TAB PO SCH (09:10)
[2019-11-10] MEDS: FUROSEMIDE 40 MG TAB PO SCH (09:10)
[2019-11-10] MEDS: PANTOPRAZOLE 40 MG/10 ML VIAL IV SCH (09:10)
[2019-11-10 10:31] VITALS: BP 114/58; PULSE 89; RESP 14; TEMP 98
--- NOTE | 2019-11-10 12:43 | PN ---
PROGRESS NOTE DATE OF DICTATION: November 10, 2019. The patient is a pleasant 43 -year-old white female with history of alcoholic cirrhosis of the liver with portal hypertension, ascites, admitted to the hospital because she was spitting up blood. While in the hospital, she did not have any further episodes of bleeding and hemoglobin was gradually decreased and today is 7.2 g/dL. However, she did not have any further episodes of active bleeding. She did have an upper endoscopy by Dr. Carlton in [facility] 5 days ago that showed evidence of mild gastric antral vascular ectasia, small esophageal varices and portal hypertensive gastropathy. She developed hyperkalemia yesterday and which was treated and today the potassium is 5.1. She remains stable and wants to go home. PHYSICAL EXAMINATION: Appears comfortable. No apparent distress. VITAL SIGNS: Stable. Blood pressure 140/58, pulse rate 89, temperature 98. HEENT examination unremarkable. Conjunctivae pink. Sclerae anicteric. Oral cavity no lesions. NECK: No JVD or lymph node enlargement. CHEST: Clear to auscultation. HEART: Regular rate and rhythm. ABDOMEN was soft. There was no free fluid noted. Nontender. EXTREMITIES: No pedal edema. SKIN no rashes. NEURO she is alert and oriented x3. No focal deficits. LABS: From today WBC 5.8, hemoglobin 7.2, platelets 60. Basic metabolic panel shows sodium of 137, potassium 5.1, BUN and creatinine of 18 and 0.6 respectively. IMPRESSION: 1. Anemia with stable hemoglobin. No active bleeding. 2. Mild thrombocytopenia secondary to underlying chronic liver disease. 3. Alcoholic cirrhosis of the liver diagnosed a year ago. Remains stable. 4. Hypernatremia and hyperkalemia secondary to chronic liver disease and hyperaldosteronisms. The patient was also on Aldactone, which may have contributed to the hyperkalemia, which is currently on hold. RECOMMENDATIONS: 1. Continue with Protonix 40 mg daily. 2. Continue Lasix 40 mg daily. 3. Hold off on Aldactone. 4. Continue lactulose so that she has 3-4 bowel movements daily. 5. She can be discharged home today with outpatient followup with her diet counselor, Dr. Carlton. If she elects to follow up with us, she can call the office and make an appointment. Thank you for this consultation. MMODL / IJN: [id number] /
--- NOTE | 2019-11-10 15:00 | P.DS ---
Providers Date of admission: 11/09/19 12:46 Expected date of discharge: 11/10/19 Attending physician: Devora Garcias MD Consults: 11/08/19 10:22 Consult Physician Routine Consulting Provider: Arabella Francois Consult Reason/Comments: GI bleed Do you want consulting provider notified?: Yes [facility] care [facility] Course: Patient is a 43-year-old male with PMH of alcoholic cirrhosis that presented to the ED for spitting up blood. Of note, she underwent endoscopy 3 days ago at [facility] by Dr. Carlton and was diagnosed with gastric antral vascular ectasia and small esophageal varices. There is no intervention that was done at that time. Her hemoglobin at the time of admission to that hospital was 9. Patient had no more hematemesis episodes after admission. Her hemoglobin was 9 on admission which slowly trended down to 8.3, 7.9 and 7.2. Her diet was advanced from clear liquid diet to regular diet which she was able to tolerate. She was also continued on Protonix 40 mg IV daily during her hospitalization. Her potassium was 6.5 on 09/09/2019. Her potassium was brought down with Kayexalate and D50 along with IV insulin. Repeat potassium was within normal limits. Her Aldactone was held. Otherwise, her home medications of lactulose and Lasix were restarted for alcoholic cirrhosis. Patient was seen and examined. No acute events overnight. Patient wanting to go home. She denies any abdominal pain. No more hematemesis. She denies any chest pain, shortness breath or palpitations. General: [non toxic], [no distress], [appears at stated age] Derm: [warm], [dry] Head: [atraumatic], [normocephalic], [symmetric] Eyes: [EOMI], [no lid lag], [mildly jaundiced sclera] Mouth: [no lip lesion], [mucus membranes moist] Cardiovascular: [S1S2 reg], [tachycardic], [positive DP pulse bilateral], Lungs: [CTA bilateral], [no rhonchi, no rales] , [no accessory muscle use] Abdominal: [soft and distended], [ nontender to palpation], [no guarding], [no appreciable organomegaly] Ext: [no gross muscle atrophy], [no edema], [no contractures] Neuro: [no focal neuro deficits] Psych: [Alert], [oriented], [appropriate affect] Hematemesis Alcoholic cirrhosis with thrombocytopenia Hyponatremia Resolved: Hyperkalemia Patient has history of esophageal varices. Her hemoglobin has been steady, slow ly decreasing from 9.0 on admission to 7.2 this morning. She is tolerating a regular diet. Gastroenterology is following the patient and has cleared the patient for discharge as discussed with Dr. Reardon. She will be continued on omeprazole by mouth. She will continue Lasix and lactulose. Aldactone will be discontinued due to her hyperkalemia. Her sodium of 124 is likely SIADH from cirrhosis. Her hyponatremia is likely chronic. Patient was advised to repeat CBC and BMP tomorrow. She will follow-up with her PCP within 3 days of discharge. Follow-up with GI within 1 week of discharge. Patient verbalized understanding of the plan. This complex discharge took about 45 minutes to complete. Patient Condition at Discharge: Stable Plan - Discharge Summary Discharge Rx Participant: Yes New Discharge Prescriptions: New Lactulose [Cephulac] 20 gm PO BID PRN #1800 ml PRN Reason: Mild Discomfort Folic Acid 1 mg PO DAILY #30 tab Furosemide [Lasix] 40 mg PO DAILY #30 tab Magnesium Oxide [Mag-Ox] 400 mg PO DAILY #30 tab Continue Magnesium 200 mg PO BID Folic Acid 1 mg PO DAILY Lactulose [Cephulac] 20 gm PO BID PRN PRN Reason: Mild Discomfort Furosemide [Lasix] 40 mg PO DAILY Omeprazole 20 mg PO DAILY #30 cap Discontinued Spironolactone [Aldactone] 100 mg PO DAILY Discharge Medication List Magnesium 200 mg PO BID 03/09/19 [History] Folic Acid 1 mg PO DAILY 05/15/19 [History] Lactulose [Cephulac] 20 gm PO BID PRN 07/13/19 [History] Furosemide [Lasix] 40 mg PO DAILY 11/08/19 [History] Folic Acid 1 mg PO DAILY #30 tab 11/10/19 [Rx] Furosemide [Lasix] 40 mg PO DAILY #30 tab 11/10/19 [Rx] Lactulose [Cephulac] 20 gm PO BID PRN #1800 ml 11/10/19 [Rx] Magnesium Oxide [Mag-Ox] 400 mg PO DAILY #30 tab 11/10/19 [Rx] Omeprazole 20 mg PO DAILY #30 cap 11/10/19 [Rx] Follow up Appointment(s)/Referral(s): [facility], [NON-STAFF] - As Needed Arabella Francois MD [STAFF PHYSICIAN] - 1 Week (call Tuesday for appiontment next week) Alexsandra Cam MD [Primary Care Provider] - 1-2 days (call Tuesday for appiontment ) Ambulatory/Diagnostic Orders: Complete Blood Count w/diff [LAB.AMB] Location: None Selected Comprehensive Metabolic Panel [LAB.AMB] Location: None Selected Patient Instructions/Handouts: Gastrointestinal Bleeding (DC), Hyperkalemia (DC) Activity/Diet/Wound Care/Special Instructions: Diet: Low potassium Follow up with primary care physician within 3 days of discharge Repeat CBC and BMP tomorrow. results to primary care provider Follow up with Dr. Francois within 1 week of discharge Take all medications as advised. Please abstain from drinking alcohol Discharge Disposition: HOME SELF-CARE
== END 2019-11-10 11:34 | disposition home or self-care (01) ==
LOC: EC 08:06 → 4SSUR 10:56 → 6PED 11-09 10:13 → 3SCARD 11-09 12:03 → INTOOBSV 11-09 12:46 → OBSVTOIN 11-09 12:46 → UNDODISIN 11-10 11:34
PROVIDERS: ADMIT Internal Medicine; ATTEND Internal Medicine
DX: K92.0 Hematemesis (principal); E87.5 Hyperkalemia; K70.31 Alcoholic cirrhosis of liver with ascites; D68.4 Acquired coagulation factor deficiency; K76.6 Portal hypertension; E87.1 Hypo-osmolality and hyponatremia; I85.10 Secondary esophageal varices without bleeding; E87.2 Acidosis; D69.59 Other secondary thrombocytopenia; Z03.818 Encounter for observation for suspected exposure to other biological agents ruled out; K31.819 Angiodysplasia of stomach and duodenum without bleeding; D64.9 Anemia, unspecified; F17.210 Nicotine dependence, cigarettes, uncomplicated; F41.9 Anxiety disorder, unspecified; I10 Essential (primary) hypertension; I34.1 Nonrheumatic mitral (valve) prolapse; K21.9 Gastro-esophageal reflux disease without esophagitis; K29.70 Gastritis, unspecified, without bleeding; K31.89 Other diseases of stomach and duodenum; H26.9 Unspecified cataract; T50.0X5A Adverse effect of mineralocorticoids and their antagonists, initial encounter; Z79.899 Other long term (current) drug therapy; Z91.030 Bee allergy status; Z91.040 Latex allergy status; Z91.048 Other nonmedicinal substance allergy status; Z86.14 Personal history of Methicillin resistant Staphylococcus aureus infection; Z90.710 Acquired absence of both cervix and uterus; Z98.42 Cataract extraction status, left eye; Z96.1 Presence of intraocular lens; Z98.51 Tubal ligation status
CPT/HCPCS: 96376 ×3; 96361 ×2; 96375 ×2; 96374; 99285; 36415; 93005; 86900; 86901; 80053 ×2; 80048; 83605; 84132; 85025 ×3; 85610; 85730; 86850; 87635; G0378 ×5; G0480; J2270 ×2; J2405; J0610; C9113 ×3; 80320; 99284

== ENCOUNTER → 2019-11-11 | Outpatient (CLI) | payer OTHER ==
[2019-11-11 12:48] LABS: Anisocytosis Slight; Basophils % (A) 0 %; Eosinophils # (A) 0.1 k/uL (0-0.7); Eosinophils % (A) 2 %; HCT 25.1 % (34.0-46.0); HGB 7.7 gm/dL (11.4-16.0); Hypochromasia Marked; Lymphocytes # (A) 1.2 k/uL (1.0-4.8); Lymphocytes % (A) 18 %; MCH 27.7 pg (25.0-35.0); MCHC 30.8 g/dL (31.0-37.0); Mean Platelet Volume 9.6; Monocytes # (A) 1.2 k/uL (0-1.0); Monocytes % (A) 18 %; Neutrophils # (A) 3.9 k/uL (1.3-7.7); Neutrophils % (A) 58 %; RBC 2.79 m/uL (3.80-5.40); RDW 18.6 % (11.5-15.5); WBC 6.7 k/uL (3.8-10.6)
[2019-11-11 12:52] LABS: ALT 39 U/L (4-34); AST 50 U/L (14-36); African American GFR (CKD) >90 (>60 ml/min/1.73 sqM); Albumin 2.9 g/dL (3.5-5.0); Albumin/Globulin Ratio 0.8; Alkaline Phosphatase 250 U/L (38-126); Anion Gap 8 mmol/L; Blood Urea Nitrogen 20 mg/dL (7-17); Carbon Dioxide 19 mmol/L (22-30); Chloride 103 mmol/L (98-107); Globulin 3.7 g/dL; Glucose 119 mg/dL (74-99); Non-African American GFR(CKD) >90 (>60 ml/min/1.73 sqM); Potassium 4.1 mmol/L (3.5-5.1); Sodium 130 mmol/L (137-145); Total Bilirubin 1.7 mg/dL (0.2-1.3); Total Protein 6.6 g/dL (6.3-8.2)
[2019-11-11 13:05] LABS: Platelet Count 75 k/uL (150-450)
== END | disposition home or self-care (01) ==
LOC: LABMAIN 11:28
PROVIDERS: ATTEND Family Medicine
DX: E87.5 Hyperkalemia (principal)
CPT/HCPCS: 36415; 80053; 85025

== ENCOUNTER → 2019-11-15 | Outpatient (CLI) | payer OTHER ==
[2019-11-15 12:17] LABS: Anisocytosis Slight; HCT 25.2 % (34.0-46.0); HGB 7.5 gm/dL (11.4-16.0); Hypochromasia Marked; MCHC 29.8 g/dL (31.0-37.0); MCV 90.7 fL (80.0-100.0); Mean Platelet Volume 9.7; RBC 2.78 m/uL (3.80-5.40); RDW 18.5 % (11.5-15.5); WBC 6.3 k/uL (3.8-10.6)
[2019-11-15 12:24] LABS: Platelet Count 69 k/uL (150-450)
[2019-11-15 13:29] LABS: Lymphocytes # (M) 1.07 k/uL (1.0-4.8); Monocytes # (M) 1.01 k/uL (0-1.0); Neutrophils # (M) 4.22 k/uL (1.3-7.7); Neutrophils % (M) 67 %; Nucleated Red Blood Cells 0 /100 WBC (0-0); Total Cells Counted 100
[2019-11-15 13:30] LABS: Poikilocytosis (M) Present
== END | disposition home or self-care (01) ==
LOC: LABWHC1 09:05
PROVIDERS: ATTEND Surgery
DX: K42.0 Umbilical hernia with obstruction, without gangrene (principal)
CPT/HCPCS: 36415; 85025

== ENCOUNTER → 2019-11-29 | Outpatient (CLI) | payer OTHER | END | disposition home or self-care (01) | LOC: LABWHC1 10:23 | PROVIDERS: ATTEND Nurse Practitioner Family | DX: D64.9 Anemia, unspecified (principal); D69.6 Thrombocytopenia, unspecified; E87.1 Hypo-osmolality and hyponatremia; K70.9 Alcoholic liver disease, unspecified; K70.31 Alcoholic cirrhosis of liver with ascites | CPT/HCPCS: 36415; 82140 ==

== ENCOUNTER → 2019-12-13 | Outpatient (CLI) | payer OTHER ==
[2019-12-13 11:54] LABS: Anisocytosis Slight; HCT 33.4 % (34.0-46.0); HGB 10.3 gm/dL (11.4-16.0); Hypochromasia Marked; MCH 26.6 pg (25.0-35.0); MCHC 30.8 g/dL (31.0-37.0); MCV 86.2 fL (80.0-100.0); RBC 3.87 m/uL (3.80-5.40); RDW 19.2 % (11.5-15.5); WBC 5.9 k/uL (3.8-10.6)
[2019-12-13 11:55] LABS: Platelet Count 52 k/uL (150-450)
[2019-12-13 12:00] LABS: INR 1.3 (<1.2); Prothrombin Time 13.2 sec (9.0-12.0)
[2019-12-13 18:55] LABS: African American GFR (CKD) 89.5 (60.0-200.0); Albumin 3.2 g/dL (3.80-4.90); Anion Gap 6.2 mmol/L (4.00-12.00); BUN/Creat Ratio 21.11 Ratio (12.00-20.00); Calcium 8.5 mg/dL (8.7-10.3); Carbon Dioxide 20.8 mmol/L (21.6-31.8); Globulin 3.2 g/dL (1.6-3.3); Non-African American GFR(CKD) 77.2 (60.0-200.0); Total Bilirubin 2.9 mg/dL (0.2-1.2); Total Protein 6.4 g/dL (6.2-8.2)
== END | disposition home or self-care (01) ==
LOC: LABWHC1 11:10
PROVIDERS: ATTEND Internal Medicine
DX: K72.90 Hepatic failure, unspecified without coma (principal)
CPT/HCPCS: 36415; 80053; 82140; 83690; 85027; 85610

== ENCOUNTER → 2020-01-04 | Outpatient (CLI) | payer OTHER ==
[2020-01-04 12:01] LABS: Anisocytosis Moderate; HCT 32.8 % (34.0-46.0); Hypochromasia Moderate; MCH 26.2 pg (25.0-35.0); MCHC 30.5 g/dL (31.0-37.0); MCV 85.9 fL (80.0-100.0); Mean Platelet Volume 9.2; Microcytosis Slight; RBC 3.82 m/uL (3.80-5.40); WBC 4.6 k/uL (3.8-10.6)
[2020-01-04 14:28] LABS: Eosinophils # (M) 0.18 k/uL (0-0.7); Lymphocytes # (M) 1.01 k/uL (1.0-4.8); Monocytes # (M) 0.92 k/uL (0-1.0); Neutrophils # (M) 2.48 k/uL (1.3-7.7); Neutrophils % (M) 54 %; Nucleated Red Blood Cells 0 /100 WBC (0-0); Platelet Count 73 k/uL (150-450); Total Cells Counted 100
== END | disposition home or self-care (01) ==
LOC: LABWHC1 09:41
PROVIDERS: ATTEND Surgery
DX: K42.9 Umbilical hernia without obstruction or gangrene (principal)
CPT/HCPCS: 36415; 85025

== ENCOUNTER 2020-01-09 07:35 | Day surgery (SDC) | payer OTHER ==
[2020-01-07 16:14] VITALS: BMI 23.8
[~2020-01-09 07:35] MED LIST changes: +ACETAMINOPHEN TAB 500 MG TAB PO ONE; +DEXAMETHASONE SOD PHOSPHATE 10 MG/ML 1 ML VIAL IV ONE; +HEPARIN SODIUM,PORCINE 5,000 UNIT/ML 1 ML VIAL SQ ONE; +HYDROmorphone 0.5 MG/0.5 ML SYRINGE IVP PRN; -LACTATED RINGERS 1,000 ML IV SCH; -LIDOCAINE 1% (10MG/ML) FOR IV START INTRADERMA PRN; +ONDANSETRON 4 MG/2 ML VIAL IVP ONE
[2020-01-09] MEDS ORDERED: HEPARIN SODIUM,PORCINE 5,000 UNIT/ML 1 ML VIAL ONE (08:15)
[2020-01-09] MEDS ORDERED: ONDANSETRON 4 MG/2 ML VIAL ONE (08:16)
[2020-01-09 08:18] VITALS: TEMP 97.4
[2020-01-09] MEDS: LACTATED RINGERS 1,000 ML IV SCH (08:40)
[2020-01-09] MEDS ORDERED: LIDOCAINE 1% (10MG/ML) FOR IV START INTRADERMA ONE (08:41)
[2020-01-09 09:01] LABS: INR 1.3 (<1.2); Partial Thromboplastin Time 27.9 sec (22.0-30.0); Prothrombin Time 13.4 sec (9.0-12.0)
--- NOTE | 2020-01-09 09:06 | P.GSHP ---
History of Present Illness H&P Date: 01/09/20 Chief Complaint: Incarcerated umbilical hernia This a 44-year-old female who has developed pain at an incarcerated umbilical hernia. Patient has incarcerated umbilical hernia with fat within the hernia. Patient still pain. Patient has a history of ascites. Patient was warned of the risk of ascites leaking from her incisions if her site is not well managed. Past Medical History Past Medical History: Blood Disorder, Chest Pain / Angina, Hypertension, Liver Disease, Memory Impairment, Mitral Valve Prolapse (MVP) Additional Past Medical History / Comment(s): "Anemic for yrs, can't figure out what's causing it, had hysterectomy at 38 yrs old, that didn't help, had EGD for possible esophageal variaces but that was clear. Have had several blood transfusions and a plasma transfusion." Irregular heartbeat. Hx. of seizures related to alcohol withdrawal, last seizure 1 yr ago Hx. of Ascites r/t cirrhosis of the liver, retinal damage r/t head trauma. Hepatic encephalopathy. Takes diuretics for cirrhosis. Constipation. "Hx hypertension, resolved after I stopped using alcohol." "Had a blood clot in my stomach after Hysterectomy." History of Any Multi-Drug Resistant Organisms: MRSA Date of last positivie culture/infection: 2003 MDRO Source:: LT ELBOW Past Surgical History: Hysterectomy, Orthopedic Surgery, Tubal Ligation Additional Past Surgical History / Comment(s): Bilateral cataract and lens, 27 screws/pins and plate in right arm, wisdom teeth, EGD. Past Anesthesia/Blood Transfusion Reactions: Motion Sickness Past Psychological History: Anxiety, Depression Smoking Status: Current every day smoker Past Alcohol Use History: Abuse Additional Past Alcohol Use History / Comment(s): SMOKED < 1/2 PPD FOR 20 + YEARS, down to 2 cigarettes per day now. Quit drinking January 2019. Past Drug Use History: None Reported - Past Family History Mother Family Medical History: Unable to Obtain Father Family Medical History: Unable to Obtain Medications and Allergies Home Medications Medication Instructions Recorded Confirmed Type Folic Acid 1 mg PO DAILY 05/15/19 01/09/20 History Lactulose [Cephulac] 20 gm PO BID PRN 07/13/19 01/09/20 History Furosemide [Lasix] 40 mg PO DAILY #30 tab 11/10/19 01/09/20 Rx Multivitamins, Thera [Multivitamin 1 tab PO DAILY 01/07/20 01/09/20 History (formulary)] Spironolactone [Aldactone] 50 mg PO DAILY 01/07/20 01/09/20 History Xisaxan 550 mg PO BID 01/07/20 01/09/20 History traMADol HCL 50 mg PO DAILY PRN 01/07/20 01/09/20 History Allergies Allergy/AdvReac Type Severity Reaction Status Date / Time latex Allergy Rash/Hives Verified 01/09/20 08:05 Surgical - Exam Vital Signs Temp Pulse Resp BP Pulse Ox 97.4 F L 84 16 125/61 100 01/09/20 08:12 01/09/20 08:12 01/09/20 08:12 01/09/20 08:12 01/09/20 08:12 - General well developed, well nourished, no distress - Eyes PERRL - ENT normal pinna - Neck no masses - Respiratory normal expansion - Cardiovascular Rhythm: regular - Abdomen 3 cm incarcerated umbilical hernia Abdomen: soft, non tender Hernia: umbilical Assessment and Plan Assessment: Incarcerated umbilical hernia. We'll perform laparoscopic robotic assistance repair.
[2020-01-09 09:08] LABS: ALT 29 U/L (4-34); AST 42 U/L (14-36); African American GFR (CKD) >90 (>60 ml/min/1.73 sqM); Albumin 2.8 g/dL (3.5-5.0); Alkaline Phosphatase 184 U/L (38-126); Anion Gap 4 mmol/L; Blood Urea Nitrogen 11 mg/dL (7-17); Calcium 8.1 mg/dL (8.4-10.2); Carbon Dioxide 20 mmol/L (22-30); Chloride 107 mmol/L (98-107); Glucose 97 mg/dL (74-99); Non-African American GFR(CKD) >90 (>60 ml/min/1.73 sqM); Potassium 4.3 mmol/L (3.5-5.1); Sodium 131 mmol/L (137-145); Total Bilirubin 2.3 mg/dL (0.2-1.3)
[2020-01-09] MEDS ORDERED: LIDOCAINE 1% INJ 10MG/ML (20 ML MDV) ONE (09:11)
[2020-01-09] MEDS ORDERED: ROCURONIUM BROMIDE 10 MG/ML 5 ML VIAL IV ONE (09:11)
[2020-01-09] MEDS ORDERED: GLYCOPYRROLATE 0.2 MG/ML 2 ML VIAL ONE (09:11)
[2020-01-09] MEDS ORDERED: fentaNYL (PF) 50 MCG/ML 2 ML AMP ONE (09:11)
[2020-01-09] MEDS ORDERED: MIDAZOLAM 2 MG/2 ML VIAL ONE (09:11)
[2020-01-09] MEDS ORDERED: ESMOLOL 100 MG/10 ML VIAL ONE (09:11)
[2020-01-09] MEDS ORDERED: NEOSTIGMINE 1 MG/ML 10 ML VIAL ONE (09:11)
[2020-01-09] MEDS ORDERED: PROPOFOL 10 MG/ML 20 ML VIAL IV ONE (09:11)
[2020-01-09] MEDS ORDERED: HYDROmorphone (PF) 1 MG/ML ONE (09:11)
[2020-01-09] MEDS ORDERED: SUCCINYLCHOLINE CHLORIDE 100 MG/5 ML SYR IV ONE (09:11)
[2020-01-09] MEDS ORDERED: BUPIVACAIN-EPI 0.25%-1:200,000 30 ML VIAL SQ ONE (09:46)
[2020-01-09] MEDS ORDERED: ALBUTEROL NEBULIZED 2.5 MG/3 ML INHALATION ONE (10:30)
--- NOTE | 2020-01-09 10:32 | P.OP ---
Date of Procedure: 01/09/20 Preoperative Diagnosis: Incarcerated umbilical hernia Postoperative Diagnosis: Incarcerated umbilical hernia Procedure(s) Performed: Laparoscopic robotic-assisted repair of incarcerated umbilical hernia Anesthesia: ABELINO Surgeon: Steve Jordan Estimated Blood Loss (ml): 5 Pathology: none sent Condition: stable Disposition: PACU Description of Procedure: RThe patient was placed on the operating table in the supine position. He received general anesthesia. His abdomen was prepped and draped usual fashion. Using a 5 mm optical trocar under direct visualization the peritoneal cavity was entered in the left upper quadrant. The abdomen was then insufflated. The laparoscope was placed back into the perineal cavity. Next a 8 mm robotic trocar was placed in the left lower quadrant and a 12 mm robotic trocar was placed in the left lateral position. The original 5 mm trocar was exchanged for a 8 mm robotic trocar. The patient's placed in the left side up position. And the patient was undocked the robot. The umbilical hernia was visualized. The incarcerated omentum was reduced. Using hook cautery the peritoneum over the umbilical hernia was excised. The fascial opening was repaired using 0V LOC suture. Next a piece of 11 cm round ventral light ST mesh was placed into the. Cavity and secured with 2 OV lock suture. The patient was undocked the robot. The needles were retrieved. The fascia of the 12 mm trocar site was closed with 0 Ethibond suture. Skin was closed interrupted 3-0 Monocryl suture. Dermabond dressings was applied. Patient top procedure well and was sent to recovery room stable condition.
[2020-01-09] MEDS ORDERED: HYDROmorphone 0.5 MG/0.5 ML SYRINGE IVP ONE (10:55)
[2020-01-09] MEDS ORDERED: MIDAZOLAM 2 MG/2 ML VIAL IVP ONE (10:55)
[2020-01-09] MEDS ORDERED: HYDROcodone/APAP 5-325MG 1 EACH TAB ONE (12:13)
[2020-01-09] MEDS ORDERED: HYDROcodone/APAP 5-325MG 1 EACH TAB PO ONE (12:14)
[2020-01-09 12:35] VITALS: RESP 16
[2020-01-09 13:33] VITALS: BP 136/76; PULSE 78
== END 2020-01-09 13:41 | disposition home or self-care (01) ==
LOC: OR 07:35
PROVIDERS: ATTEND Surgery
DX: K42.0 Umbilical hernia with obstruction, without gangrene (principal); I10 Essential (primary) hypertension; I34.1 Nonrheumatic mitral (valve) prolapse; K74.60 Unspecified cirrhosis of liver; F41.9 Anxiety disorder, unspecified; F32.9 Major depressive disorder, single episode, unspecified; F17.210 Nicotine dependence, cigarettes, uncomplicated; R41.3 Other amnesia; Z91.040 Latex allergy status; Z90.710 Acquired absence of both cervix and uterus; Z98.41 Cataract extraction status, right eye; Z98.2 Presence of cerebrospinal fluid drainage device; Z96.1 Presence of intraocular lens; Z98.818 Other dental procedure status; Z98.890 Other specified postprocedural states; Z98.51 Tubal ligation status; Z86.14 Personal history of Methicillin resistant Staphylococcus aureus infection; Z79.899 Other long term (current) drug therapy
CPT/HCPCS: 80053; 85610; 85730; 49653; C1781; J2250; J1644; J1100; J2710; J0690; J2405; J2001; J3010; J1170 ×2; J0330; J2704

== ENCOUNTER 2020-01-11 11:18 | Emergency (ER) | payer OTHER ==
[2020-01-11] MEDS ORDERED: SODIUM CHLORIDE 0.9% 1,000 ML IV STA (12:17)
[2020-01-11] MEDS ORDERED: HYDROmorphone 0.5 MG/0.5 ML SYRINGE IVP STA (12:17)
--- NOTE | 2020-01-11 12:28 | ED ---
Abdominal Pain HPI - General Chief Complaint: Abdominal Pain Stated Complaint: post op bleeding Time Seen by Provider: 01/11/20 12:15 Source: patient Mode of arrival: ambulatory Limitations: no limitations - History of Present Illness Initial Comments: Patient is a 38 year old female with past medical history of liver disease who presents emergency department with reported constipation. Patient had hernia repair x2 by Dr. Jordan on Tuesday. States her last bowel movement was Tuesday before the procedure. Afterwards they did give her [place] for pain control. States she took it yesterday however has not taken any today. She has also been taking Colace and lactulose. Lactulose is a prescribe medication for her because of her liver disease. To the medication this morning and has yet to have a bowel movement. Complains of abdominal pain and distention. Patient has had bloody drainage from one of her incision sites. States she saturated her dressing. She denies any fevers or chills. No changes in urination. No vomiting. No other alleviating, precipitating or modifying factors - Related Data Home Medications Medication Instructions Recorded Confirmed Folic Acid 1 mg PO DAILY 05/15/19 01/11/20 Lactulose [Cephulac] 20 gm PO BID PRN 07/13/19 01/11/20 Multivitamins, Thera [Multivitamin 1 tab PO DAILY 01/07/20 01/11/20 (formulary)] Spironolactone [Aldactone] 50 mg PO DAILY 01/07/20 01/11/20 traMADol HCL 50 mg PO Q4H PRN 01/07/20 01/11/20 Rifaximin [Xifaxan] 550 mg PO BID 01/11/20 01/11/20 Sertraline [Zoloft] 25 mg PO DAILY 01/11/20 01/11/20 rOPINIRole HCL [Requip] 0.5 mg PO HS 01/11/20 01/11/20 traZODone HCL 50 mg PO HS 01/11/20 01/11/20 Previous Rx's Medication Instructions Recorded Furosemide [Lasix] 40 mg PO DAILY #30 tab 11/10/19 Docusate [Colace] 100 mg PO BID #20 capsule 01/09/20 HYDROcodone/APAP 5-325MG [[place] 1 tab PO Q6HR PRN #10 tab 01/09/20 5-325] Allergies Allergy/AdvReac Type Severity Reaction Status Date / Time bee pollen Allergy Anaphylaxis Verified 01/11/20 14:24 latex Allergy Rash/Hives Verified 01/11/20 14:24 Review of Systems ROS Statement: Those systems with pertinent positive or pertinent negative responses have been documented in the HPI. ROS Other: All systems not noted in ROS Statement are negative. Past Medical History Past Medical History: Eye Disorder, Liver Disease, Mitral Valve Prolapse (MVP) Additional Past Medical History / Comment(s): right cataract, Hx. of seizures related to alcohol withdrawal, hx. of Ascites r/t cirrhosis of the liver, retinal damage r/t head trauma. Hepatic encephalopathy. takes diuretics for cirrhosis, hernia surgery History of Any Multi-Drug Resistant Organisms: MRSA Date of last positivie culture/infection: 2003 MDRO Source:: LT ELBOW Past Surgical History: Hernia Repair Additional Past Surgical History / Comment(s): left cataract and lens, 07/18/19, plate to right lower arm, wisdom teeth, samantha in right upper arm Past Anesthesia/Blood Transfusion Reactions: No Reported Reaction Past Psychological History: Anxiety Smoking Status: Current some day smoker Past Alcohol Use History: None Reported - Past Family History Mother Family Medical History: Unable to Obtain Father Family Medical History: Unable to Obtain General Exam Limitations: no limitations General appearance: alert, in no apparent distress Head exam: Present: atraumatic, normocephalic, normal inspection Eye exam: Present: normal appearance, PERRL, EOMI. Absent: scleral icterus, conjunctival injection, periorbital swelling ENT exam: Present: normal exam, mucous membranes moist Neck exam: Present: normal inspection. Absent: tenderness, meningismus, lymphadenopathy Respiratory exam: Present: normal lung sounds bilaterally. Absent: respiratory distress, wheezes, rales, rhonchi, stridor Cardiovascular Exam: Present: regular rate, normal rhythm, normal heart sounds. Absent: systolic murmur, diastolic murmur, rubs, gallop, clicks GI/Abdominal exam: Present: soft, distended, tenderness (generalized), hyperactive bowel sounds, other (incision sites are c/d/i. No active bleeding. No cellulitic changed. ). Absent: guarding, rebound, rigid, pulsatile mass, hernia Extremities exam: Present: normal inspection, full ROM, normal capillary refill. Absent: tenderness, pedal edema, joint swelling, calf tenderness Back exam: Present: normal inspection Neurological exam: Present: alert, oriented X3, CN II-XII intact Psychiatric exam: Present: normal affect, normal mood Skin exam: Present: warm, dry, intact, normal color. Absent: rash Course Vital Signs 01/11/20 01/11/20 11:31 15:43 Temperature 98.6 F 98.3 F Pulse Rate 89 91 Respiratory 18 16 Rate Blood Pressure 154/83 174/83 O2 Sat by Pulse 100 96 Oximetry Medical Decision Making - Medical Decision Making Patient placed into room 31. History and physical exam performed. Lab studies completed and patient went for CT abd due to pain. Called Dr. Jordan who recommended treatment with Golytely. Patient would rather take this medication home. She is instructed on its use. Patient to follow up with Dr. Bean in 2-4 days. Return if she has no improvement or has any new or worsening symptoms. Patient discharged in stale condition. - Lab Data Result diagrams: 01/11/20 12:35 01/11/20 12:35 Lab Results 01/11/20 01/11/20 01/11/20 Range/Units 12:35 12:35 12:35 WBC 9.8 (3.8-10.6) k/uL RBC 4.09 (3.80-5.40) m/uL Hgb 11.0 L (11.4-16.0) gm/dL Hct 34.8 (34.0-46.0) % MCV 85.1 (80.0-100.0) fL MCH 26.8 (25.0-35.0) pg MCHC 31.5 (31.0-37.0) g/dL RDW 20.3 H (11.5-15.5) % Plt Count 78 L (150-450) k/uL Neutrophils % 67 % Lymphocytes % 13 % Monocytes % 15 % Eosinophils % 1 % Basophils % 0 % Neutrophils # 6.5 (1.3-7.7) k/uL Lymphocytes # 1.3 (1.0-4.8) k/uL Monocytes # 1.4 H (0-1.0) k/uL Eosinophils # 0.1 (0-0.7) k/uL Basophils # 0.0 (0-0.2) k/uL Hypochromasia Moderate Anisocytosis Moderate Microcytosis Slight Sodium 131 L (137-145) mmol/L Potassium 4.6 (3.5-5.1) mmol/L Chloride 105 (98-107) mmol/L Carbon Dioxide 18 L (22-30) mmol/L Anion Gap 8 mmol/L BUN 22 H (7-17) mg/dL Creatinine 0.73 (0.52-1.04) mg/dL Est GFR (CKD-EPI)AfAm >90 (>60 ml/min/1.73 sqM) Est GFR (CKD-EPI)NonAf >90 (>60 ml/min/1.73 sqM) Glucose 90 (74-99) mg/dL Plasma Lactic Acid Davy (0.7-2.0) mmol/L Calcium 9.0 (8.4-10.2) mg/dL Total Bilirubin 2.9 H (0.2-1.3) mg/dL AST 53 H (14-36) U/L ALT 38 H (4-34) U/L Alkaline Phosphatase 181 H (38-126) U/L Ammonia (<30) umol/L Total Protein 7.2 (6.3-8.2) g/dL Albumin 3.4 L (3.5-5.0) g/dL Lipase 342 H (23-300) U/L Urine Color Yellow Urine Appearance Clear (Clear) Urine pH 5.5 (5.0-8.0) Ur Specific [place] 1.012 (1.001-1.035) Urine Protein Negative (Negative) Urine Glucose (UA) Negative (Negative) Urine Ketones Negative (Negative) Urine Blood Negative (Negative) Urine Nitrite Negative (Negative) Urine Bilirubin Negative (Negative) Urine Urobilinogen <2.0 (<2.0) mg/dL Ur Leukocyte Esterase Negative (Negative) 01/11/20 Range/Units 12:35 WBC (3.8-10.6) k/uL RBC (3.80-5.40) m/uL Hgb (11.4-16.0) gm/dL Hct (34.0-46.0) % MCV (80.0-100.0) fL MCH (25.0-35.0) pg MCHC (31.0-37.0) g/dL RDW (11.5-15.5) % Plt Count (150-450) k/uL Neutrophils % % Lymphocytes % % Monocytes % % Eosinophils % % Basophils % % Neutrophils # (1.3-7.7) k/uL Lymphocytes # (1.0-4.8) k/uL Monocytes # (0-1.0) k/uL Eosinophils # (0-0.7) k/uL Basophils # (0-0.2) k/uL Hypochromasia Anisocytosis Microcytosis Sodium (137-145) mmol/L Potassium (3.5-5.1) mmol/L Chloride (98-107) mmol/L Carbon Dioxide (22-30) mmol/L Anion Gap mmol/L BUN (7-17) mg/dL Creatinine (0.52-1.04) mg/dL Est GFR (CKD-EPI)AfAm (>60 ml/min/1.73 sqM) Est GFR (CKD-EPI)NonAf (>60 ml/min/1.73 sqM) Glucose (74-99) mg/dL Plasma Lactic Acid Davy 1.8 (0.7-2.0) mmol/L Calcium (8.4-10.2) mg/dL Total Bilirubin (0.2-1.3) mg/dL AST (14-36) U/L ALT (4-34) U/L Alkaline Phosphatase (38-126) U/L Ammonia <9 (<30) umol/L Total Protein (6.3-8.2) g/dL Albumin (3.5-5.0) g/dL Lipase (23-300) U/L Urine Color Urine Appearance (Clear) Urine pH (5.0-8.0) Ur Specific [place] (1.001-1.035) Urine Protein (Negative) Urine Glucose (UA) (Negative) Urine Ketones (Negative) Urine Blood (Negative) Urine Nitrite (Negative) Urine Bilirubin (Negative) Urine Urobilinogen (<2.0) mg/dL Ur Leukocyte Esterase (Negative) - EKG Data EKG Comments: EKG demonstrates a sinus rhythm with PACs. Rate of 85. GA interval 160. QRS 88. QTC of 421. No acute ST segment elevations or depressions concerning for ischemic changes Disposition Clinical Impression: Abdominal pain, Constipation Disposition: HOME SELF-CARE Condition: Stable Instructions (If sedation given, give patient instructions): Constipation (ED) Additional Instructions: Please drink the GoLYTELY as needed for constipation. Take your pain medications as directed. Follow up with Dr. Nielsen. Return to the emergency room for any new or worsening symptoms Is patient prescribed a controlled substance at d/c from ED?: No Referrals: Alexsandra Cam MD [Primary Care Provider] - 1-2 days Steve Jordan MD [STAFF PHYSICIAN] - 1-2 days Time of Disposition: 14:52
[2020-01-11] MEDS ORDERED: ONDANSETRON 4 MG/2 ML VIAL IVP STA (12:47)
[2020-01-11 13:06] LABS: Appearance,Urine Clear (Clear); Bilirubin,Urine Negative (Negative); Blood,Urine Negative (Negative); Color,Urine Yellow; Glucose,Urine (UA) Negative (Negative); Ketones,Urine Negative (Negative); Leukocyte Esterase,Urine Negative (Negative); Nitrite,Urine Negative (Negative); PH, Urine 5.5 (5.0-8.0); Protein,Urine Negative (Negative); Specific Gravity,Urine 1.012 (1.001-1.035); Urobilinogen,Urine <2.0 mg/dL (<2.0)
[2020-01-11 13:14] LABS: Anisocytosis Moderate; Basophils % (A) 0 %; Eosinophils # (A) 0.1 k/uL (0-0.7); Eosinophils % (A) 1 %; HCT 34.8 % (34.0-46.0); Hypochromasia Moderate; Lymphocytes # (A) 1.3 k/uL (1.0-4.8); Lymphocytes % (A) 13 %; MCH 26.8 pg (25.0-35.0); MCHC 31.5 g/dL (31.0-37.0); MCV 85.1 fL (80.0-100.0); Mean Platelet Volume 8.7; Microcytosis Slight; Monocytes # (A) 1.4 k/uL (0-1.0); Monocytes % (A) 15 %; Neutrophils # (A) 6.5 k/uL (1.3-7.7); Neutrophils % (A) 67 %; RBC 4.09 m/uL (3.80-5.40); RDW 20.3 % (11.5-15.5); WBC 9.8 k/uL (3.8-10.6)
[2020-01-11 13:15] LABS: Lactic Acid, Venous 1.8 mmol/L (0.7-2.0)
[2020-01-11 13:18] LABS: ALT 38 U/L (4-34); AST 53 U/L (14-36); African American GFR (CKD) >90 (>60 ml/min/1.73 sqM); Albumin 3.4 g/dL (3.5-5.0); Alkaline Phosphatase 181 U/L (38-126); Anion Gap 8 mmol/L; Blood Urea Nitrogen 22 mg/dL (7-17); Carbon Dioxide 18 mmol/L (22-30); Chloride 105 mmol/L (98-107); Glucose 90 mg/dL (74-99); Non-African American GFR(CKD) >90 (>60 ml/min/1.73 sqM); Potassium 4.6 mmol/L (3.5-5.1); Sodium 131 mmol/L (137-145); Total Bilirubin 2.9 mg/dL (0.2-1.3); Total Protein 7.2 g/dL (6.3-8.2)
[2020-01-11 13:22] LABS: Platelet Count 78 k/uL (150-450)
--- NOTE | 2020-01-11 13:37 | XR ---
EXAMINATION TYPE: XR chest 2V DATE OF EXAM: 01/11/2020 COMPARISON: NONE TECHNIQUE: PA and lateral views submitted. HISTORY: Pain FINDINGS: No pleural effusion or pneumothorax. Heart size normal. Postsurgical change right humerus. Subsegment al changes involving the right perihilar and lower lobe regions. No overt failure. IMPRESSION: 1. Right perihilar and basilar subsegmental consolidation more typical of atelectasis than pneumonia correlate clinically..
--- NOTE | 2020-01-11 14:13 | CT ---
EXAMINATION TYPE: CT abdomen pelvis w con DATE OF EXAM: 01/11/2020 COMPARISON: Limited abdominal ultrasound 07/10/2019. HISTORY: constipation, bleeding at incision site, hernia surgery [address] DLP: 774.9 mGycm Automated exposure control for dose reduction was used. TECHNIQUE: Helical acquisition of images was performed from the lung bases through the pelvis. CONTRAST: Performed without Oral Contrast and with IV Contrast, patient injected with 100 mL of Isovue 300. FINDINGS: LUNG BASES: Groundglass opacity of the right middle lobe posteriorly. Scattered atelectasis and/or li near scarring of the bilateral lung bases. LIVER/GB: Nodular heterogenous liver with attenuation of the hepatic veins. The gallbladder demonstra gomez mild wall thickening, however is not distended and demonstrates no pericholecystic inflammatory c hange. PANCREAS: No significant abnormality is seen. SPLEEN: Borderline enlarged measuring 13.4 cm craniocaudal. ADRENALS: 1.4 cm nodule of the right adrenal gland. Left adrenal gland normal. KIDNEYS: No hydronephrosis. BOWEL: Duodenal diverticulum. There is mild distention of the descending and transverse colon with f luid, air fluid level, and foci of gas. Stool seen throughout the sigmoid and descending colon as wel l. Air is seen to the level of of the rectum. There is a fluid-filled nondilated loops of distal smal l bowel. PERITONEUM: No free air is visualized. There is a trace amount of perihepatic and right paracolic gu tter free fluid. LYMPH NODES: No lymphadenopathy. PELVIS: Urinary bladder normal. Status post hysterectomy. VASCULATURE: No abdominal aortic aneurysm. Portal vein is normal in size. MUSCULOSKELETAL: Few foci of air are seen within the abdominal wall musculature as expected postoper atively. There is edema between the rectus muscles of the left lower quadrant. There is density and g as within the umbilicus incision. No osseous destructive lesions. IMPRESSION: 1. THE COLON IS FILLED WITH FLUID, AIR FLUID LEVELS, AND DISTAL FECAL DEBRIS. FINDINGS LIKELY REPRES ENT POSTOPERATIVE ILEUS AND CONSTIPATION. NO EVIDENCE OF BOWEL OBSTRUCTION. 2. UMBILICUS INCISION DENSITY AND GAS MAY REPRESENT POSTSURGICAL CHANGE AND IS NONSPECIFIC AT THIS T [place]. 3. CIRRHOTIC MORPHOLOGY OF THE LIVER AND ATTENUATED HEPATIC VEINS. FINDINGS MAY REPRESENT CIRRHOSIS WITH DIFFERENTIAL INCLUDING BUDD-CHIARI. THERE IS MILD SPLENOMEGALY. 4. RIGHT 1.4 CM ADRENAL NODULE IS INDETERMINATE, AND MAY REPRESENT ADRENAL ADENOMA. RECOMMEND NONEME RGENT CT ABDOMEN ADRENAL PROTOCOL FOR FURTHER CHARACTERIZATION. 5. GROUNDGLASS OPACITY OF THE RIGHT MIDDLE LOBE MAY REPRESENT ATELECTASIS VERSUS DEVELOPING PNEUMONI A.
[2020-01-11] MEDS ORDERED: ONDANSETRON 4 MG ODT STARTER PACK 2 TAB BTL PO STA (14:51)
[2020-01-11] MEDS ORDERED: PEG 3350-NA SULF,BICARB,CL/KCL 4,000 ML BOTTLE PO ONE (14:51)
[2020-01-11] MEDS ORDERED: METOCLOPRAMIDE 5 MG/ML 2 ML VIAL IVP STA (15:21)
[2020-01-11 15:44] VITALS: BP 174/83; PULSE 91; RESP 16; TEMP 98.3
== END 2020-01-11 15:44 | disposition home or self-care (01) ==
LOC: EC 11:18
DX: K59.00 Constipation, unspecified (principal); R10.9 Unspecified abdominal pain; F41.9 Anxiety disorder, unspecified; K72.90 Hepatic failure, unspecified without coma; F17.200 Nicotine dependence, unspecified, uncomplicated; Z79.899 Other long term (current) drug therapy; Z91.030 Bee allergy status; Z91.040 Latex allergy status; Z98.890 Other specified postprocedural states
CPT/HCPCS: 36415; 93005; 80053; 82140; 83605; 83690; 85025; 81003; 71046; 74177; 99284; 96374; 96375 ×2; 96361; J2765; J2405; S0119; J1170; Q9967

== ENCOUNTER → 2020-02-11 | Outpatient (CLI) | payer OTHER ==
[2020-02-11 13:39] LABS: Anisocytosis Moderate; HCT 27.8 % (34.0-46.0); Hypochromasia Marked; MCH 27.2 pg (25.0-35.0); MCV 87.7 fL (80.0-100.0); Mean Platelet Volume 10.1; Microcytosis Slight; RBC 3.17 m/uL (3.80-5.40); RDW 20.6 % (11.5-15.5); WBC 5.5 k/uL (3.8-10.6)
[2020-02-11 13:44] LABS: HGB 8.6 gm/dL (11.4-16.0)
[2020-02-11 14:06] LABS: Platelet Count 61 k/uL (150-450)
[2020-02-11 19:23] LABS: INR 1.26 (0.90-1.11); Prothrombin Time 13.4 sec (9.9-11.9)
[2020-02-11 19:43] LABS: African American GFR (CKD) 88.9 (60.0-200.0); Albumin 2.8 g/dL (3.80-4.90); Albumin/Globulin Ratio 0.97 (1.60-3.17); Anion Gap 5.4 mmol/L (4.00-12.00); BUN/Creat Ratio 18.89 Ratio (12.00-20.00); Calcium 8.2 mg/dL (8.7-10.3); Carbon Dioxide 22.6 mmol/L (21.6-31.8); Globulin 2.9 g/dL (1.6-3.3); Non-African American GFR(CKD) 76.7 (60.0-200.0); Potassium 4.8 mmol/L (3.5-5.5); Total Bilirubin 2.3 mg/dL (0.2-1.2); Total Protein 5.7 g/dL (6.2-8.2)
== END | disposition home or self-care (01) ==
LOC: LABWHC1 11:00
PROVIDERS: ATTEND Internal Medicine
DX: K70.31 Alcoholic cirrhosis of liver with ascites (principal)
CPT/HCPCS: 36415; 80053; 82140; 85027; 85610

== ENCOUNTER 2020-02-15 12:14 | Day surgery (SDC) | payer OTHER ==
[2020-02-15 12:33] VITALS: BP 129/63; PULSE 95; RESP 16; TEMP 98.2
[2020-02-15 13:03] LABS: Mean Platelet Volume 11.3
[2020-02-15 13:06] LABS: Platelet Count 57 k/uL (150-450)
[2020-02-15 13:09] LABS: African American GFR (CKD) >90 (>60 ml/min/1.73 sqM); Non-African American GFR(CKD) >90 (>60 ml/min/1.73 sqM)
[2020-02-15 13:18] LABS: INR 1.3 (<1.2); Prothrombin Time 13.4 sec (9.0-12.0)
[2020-02-15] MEDS: ALBUMIN HUMAN 25% 50 ML in EMPTY BAG 1 BAG IVPB SCH ×2 (13:54→13:55)
--- NOTE | 2020-02-18 10:53 | US ---
EXAMINATION TYPE: US abdomen limited DATE OF EXAM: 02/15/2020 COMPARISON: NONE CLINICAL HISTORY: R18.8 Ascites. Status post abdominal surgery approximately one month ago. Patient c omplains of palpable bump at laparoscopic wound of the left mid abdomen. Patient states fluid was asp irated from this surgical wound by Dr. Jordan this week. FINDINGS: There is a thin 1 to 2 mm insinuating fistulous track of the abdominal wall immediately deep to the l eft mid abdomen surgical incision site with defect seen within the peritoneum, fascial layers, to the subcutaneous fat where there is a tiny focal fluid collection. There is a trace amounts of abdominal ascites, not amenable to paracentesis, which appears to mildly decompress from the subcutaneous foca l fluid collection back into the abdomen during the exam due to pressure from the ultrasound probe. T he focal fluid collection originally measured approximately 0.9 x 2.5 cm (image 4), then measured 0.7 x 2.5 cm after some decompression (image 7). IMPRESSION: Immediately deep to the left midabdomen surgical incision site there is a tiny focal flu id collection, not large enough to coil a percutaneous drainage catheter within, communicating with a 1 to 2 mm insinuating fistulous tract seen through the abdominal wall. Trace abdominal ascites appea rs to be mildly decompressing in and out of this tiny fluid collection via the fistulous tract.
== END 2020-02-15 14:15 | disposition home or self-care (01) ==
LOC: RADPROMAIN 12:14
PROVIDERS: ATTEND Surgery
DX: R18.8 Other ascites (principal); Z53.8 Procedure and treatment not carried out for other reasons
CPT/HCPCS: 36415; 76705; 82565; 85049; 85610

== ENCOUNTER → 2020-05-08 | Outpatient (CLI) | payer OTHER ==
[2020-05-08 10:40] LABS: Glucose 2 Hour 199 mg/dL
== END | disposition home or self-care (01) ==
LOC: LABWHC1 07:13
PROVIDERS: ATTEND Nurse Practitioner Family
DX: E16.2 Hypoglycemia, unspecified (principal)
CPT/HCPCS: 36415; 82947; 82950

== ENCOUNTER → 2020-07-11 | Outpatient (CLI) | payer OTHER ==
--- NOTE | 2020-07-11 14:58 | MM ---
Reason for exam: screening (asymptomatic). Baseline mammogram. History: Family history of breast cancer in 3 maternal aunts. Took hormonal contraceptives for 9 years beginning at age 15. Physical Findings: Nurse did not find any significant physical abnormalities on exam. MG Screening Mammo w CAD Bilateral CC and MLO view(s) were taken. The breast tissue is heterogeneously dense. This may lower the sensitivity of mammography. Benign appearing bilateral calcifications. These results were verbally communicated with the patient and result sheet given to the patient on 07/11/20. ASSESSMENT: Benign, BI-RAD 2 RECOMMENDATION: Routine screening mammogram of both breasts in 1 year.
== END | disposition home or self-care (01) ==
LOC: RADMAMWWP 13:37
PROVIDERS: ATTEND Family Medicine
DX: Z12.31 Encounter for screening mammogram for malignant neoplasm of breast (principal)
CPT/HCPCS: 77067

== ENCOUNTER 2020-07-15 18:23 | Emergency (ER) | payer OTHER ==
[2020-07-15 18:32] VITALS: BP 130/70; PULSE 92; RESP 18; TEMP 99.1
[2020-07-15] MEDS ORDERED: KETOROLAC 15 MG/ML 1 ML VIAL IM STA (18:53)
[2020-07-15] MEDS ORDERED: ACET/COD 300 MG/30 MG STARTER PACK 6 TAB BTL PO STA (18:53)
--- NOTE | 2020-07-15 18:55 | ED ---
Upper Extremity HPI - General Chief Complaint: Extremity Injury, Upper Stated Complaint: shoulder pain Time Seen by Provider: 07/15/20 18:43 Source: patient Mode of arrival: ambulatory Limitations: physical limitation - History of Present Illness Initial Comments: Patient is a 44-year-old female presenting to emergency Department with complaints of left shoulder pain that started yesterday. She states she was putting the garbage own thinks she pushed the door open with her left hand and started feeling some pain in the top of her left shoulder. She denies any previous surgeries or injuries to her left shoulder. She states she does have some bulging disc in her neck and often has nerve pain. She states she called her doctor's office that she sees for her neck pain and they recommended to be evaluated. She denies any fever or chills, no falls or trauma. She has no further complaints at this time. - Related Data Home Medications Medication Instructions Recorded Confirmed Folic Acid 1 mg PO DAILY 05/15/19 02/15/20 Lactulose [Cephulac] 20 gm PO BID PRN 07/13/19 02/15/20 Multivitamins, Thera [Multivitamin 1 tab PO DAILY 01/07/20 02/15/20 (formulary)] Spironolactone [Aldactone] 50 mg PO DAILY 01/07/20 02/15/20 traMADol HCL 50 mg PO Q4H PRN 01/07/20 02/15/20 Rifaximin [Xifaxan] 550 mg PO BID 01/11/20 02/15/20 Previous Rx's Medication Instructions Recorded Furosemide [Lasix] 40 mg PO DAILY #30 tab 11/10/19 Docusate [Colace] 100 mg PO BID #20 capsule 01/09/20 Allergies Allergy/AdvReac Type Severity Reaction Status Date / Time bee pollen Allergy Anaphylaxis Verified 07/15/20 18:32 latex Allergy Rash/Hives Verified 07/15/20 18:32 Review of Systems ROS Statement: Those systems with pertinent positive or pertinent negative responses have been documented in the HPI. ROS Other: All systems not noted in ROS Statement are negative. Past Medical History Past Medical History: Eye Disorder, Liver Disease, Mitral Valve Prolapse (MVP) Additional Past Medical History / Comment(s): right cataract, Hx. of seizures related to alcohol withdrawal, hx. of Ascites r/t cirrhosis of the liver, retinal damage r/t head trauma. Hepatic encephalopathy. takes diuretics for cirrhosis, hernia surgery, History of Any Multi-Drug Resistant Organisms: MRSA Date of last positivie culture/infection: 2003 MDRO Source:: LT ELBOW Past Surgical History: Hernia Repair Additional Past Surgical History / Comment(s): left cataract and lens, 07/18/19, plate to right lower arm, wisdom teeth, samantha in right upper arm, recent admit november 2019 - at [facility] for paracentesis, EGD and blood transfusion. Past Anesthesia/Blood Transfusion Reactions: No Reported Reaction Additional Past Anesthesia/Blood Transfusion Reaction / Comment(s): several blood transfusion in past per pt Past Psychological History: Anxiety Smoking Status: Current every day smoker Past Alcohol Use History: None Reported Past Drug Use History: None Reported - Past Family History Mother Family Medical History: Unable to Obtain Father Family Medical History: Unable to Obtain General Exam - General Exam Comments Initial Comments: GENERAL: Patient is well-developed and well-nourished. Patient is nontoxic and in no acute distress. HEAD: Atraumatic, normocephalic. EYES: Pupils equal round and reactive to light, extraocular movements intact, sclera anicteric, conjunctiva are normal. Eyelids were unremarkable. ENT: Nares patent, oropharynx clear without exudates. Moist mucous membranes. NECK: Normal range of motion, supple without lymphadenopathy or JVD. LUNGS: Unlabored respirations. Breath sounds clear to auscultation bilaterally and equal. No wheezes rales or rhonchi. HEART: Regular rate and rhythm without murmurs, rubs or gallops. ABDOMEN: Soft, nontender, normoactive bowel sounds. No guarding, no rebound. No masses appreciated. : Deferred MUSCULOSKELETAL: Pain with palpation of the left superior and posterior aspect of the left shoulder, pain with the left upper trapezius muscle. She does have some mild decrease in active range of motion left shoulder at the end range. There is no obvious deformity, no erythema or signs of infection. Neurovascular intact. N o clubbing or cyanosis. NEUROLOGICAL: Patient is alert and oriented x 3. Motor and sensory are also intact. Cranial nerves II through XII grossly intact. Symmetrical smile. Normal speech, normal gait. PSYCH: Normal mood, normal affect. SKIN: Warm, Dry, normal turgor, no rashes or lesions noted. Limitations: physical limitation Course Vital Signs 07/15/20 18:29 Temperature 99.1 F Pulse Rate 92 Respiratory 18 Rate Blood Pressure 130/70 O2 Sat by Pulse 99 Oximetry Medical Decision Making - Medical Decision Making Patient is a 44-year-old female presenting with left shoulder pain that started yesterday. Patient pushed open a door with her left arm started having discomfort. No falls or trauma. No previous injuries. No fevers. Exam is consistent with possible muscle spasm of the left upper trapezius muscle, she does have history of bulging disks in her neck as well. I recommended anti- inflammatories, ice and heat for any discomfort. She can follow up with her pain specialist. I will give her Toradol injection today as well as Tylenol threes for severe pain. She is stable for discharge and she is in agreement with this plan of care. Disposition Clinical Impression: Left shoulder pain, Trapezius muscle spasm Disposition: HOME SELF-CARE Condition: Stable Instructions (If sedation given, give patient instructions): Shoulder Pain (ED) Additional Instructions: Please return to the Emergency Department if symptoms worsen or any other concerns. Recommend ibuprofen for pain relief, may use heat to the area as well. May use Tylenol #3's for severe pain. Please follow-up with your regular doctor if symptoms persist. Is patient prescribed a controlled substance at d/c from ED?: No Referrals: Alexsandra Cam MD [Primary Care Provider] - 1-2 days
== END 2020-07-15 19:18 | disposition home or self-care (01) ==
LOC: EC 18:23
DX: M62.838 Other muscle spasm (principal); F17.200 Nicotine dependence, unspecified, uncomplicated; Z91.030 Bee allergy status; Z91.040 Latex allergy status; Z86.14 Personal history of Methicillin resistant Staphylococcus aureus infection; Z98.41 Cataract extraction status, right eye; Z98.42 Cataract extraction status, left eye; Z96.1 Presence of intraocular lens; X50.0XXA Overexertion from strenuous movement or load, initial encounter
CPT/HCPCS: 99283; 96372; J1885